=== PATIENT | male | born 1970 | race Caucasian/White ===

== ENCOUNTER 2023-07-30 00:47 | Inpatient (IN) ==
--- OUTSIDE RECORDS SUMMARY | 2023-07-30 00:55 | External Medical Summary | Summary of Care ---
Author Name Unknown Organization [facility] Address [address] [place] [address] Phone [phone] Care Team Providers Care Telegraph Installer Name Role Phone Ludin Lim MD Primary Care Provider + Reason for Visit * Reason Comments eRx-Medication Refill Encounter Details Date Type Department Care Team ([facility] st Contact Info) Description 06/16/2023 Telephone General Internal Medicine [facility] [address] [place] [address] Ludin Lim MD 200 [place] [address] eRx-Medication Refill Allergies Active Allergy Reactions Criticality Noted Date Comments Melissa Awad 10/28/2018 Other reaction(s): Sneezing documented as of this encounter (statuses as of 06/18/2023) Medications Medication Sig Dispensed Refills Start Date End Date Status ASPIRIN 81 MG PO TABS 1 tablet daily 0 Active Betamethasone Dipropionate Aug 0.05 % External Ointment (Diprolene AF)Indications:Derm atitis Apply to arms/legs rash nightly as needed 30 g 1 07/18/2021 Active Additional Information Patient not taking.Reported on 06/08/2022 BD Pen Needle Kathy U/F 32G X 4 MM (Insulin Pen Needle)Indications: Type 2 diabetes mellitus with hemoglobin A1c goal of less than 7.0% ([facility]) use once daily with solostar pen 100 Each 5 06/07/2022 Active Lisinopril 20 MG Oral Tablet (Prinivil)Indicatio ns:HTN, goal below 140/90 TAKE 1 TABLET BY MOUTH EVERY MORNING 90 Tablet 0 05/01/2023 Active Gabapentin 300 MG Oral Capsule (Neurontin)Indicati ons:Neuralgia and neuritis TAKE ONE CAPSULE BY MOUTH EVERY MORNING, ONE CAPSULE AT NOON, AND ONE CAPSULE BEFORE BEDTIME 90 Capsule 0 04/30/2023 Active Atorvastatin Calcium 40 MG Oral Tablet (Lipitor)Indication s:Hyperlipidemia TAKE 1 TABLET BY MOUTH EVERY MORNING 90 Tablet 0 05/21/2023 Active Levemir FlexPen 100 UNIT/ML Subcutaneous Solution Pen-injector (Insulin Detemir) inject 30 units under the skin in the morning 15 mL 0 05/21/2023 Active metFORMIN HCl ER 500 MG Oral Tablet Extended Release 24 Hour (Glucophage XR) TAKE TWO TABLETS BY MOUTH IN THE MORNING AND AT BEDTIME 360 Tablet 0 06/06/2023 Active Empagliflozin 25 MG Oral Tablet (Jardiance) Take 1 Tablet by mouth in the morning. In the morning.. 90 Tablet 0 06/06/2023 Active Metoprolol Tartrate 50 MG Oral Tablet (Lopressor)Indicati ons:HTN, goal below 140/90 Take 1 Tablet by mouth in the morning and 1 Tablet before bedtime. 180 Tablet 1 06/04/2023 Active documented as of this encounter (statuses as of 06/18/2023) Active Problems Problem Noted Date Diagnosed Date Neuralgia and neuritis 11/05/2021 Obesity, Class II, BMI 35-39.9, isolated (see ac tual BMI) 12/20/2018 Mixed hyperlipidemia 05/01/2018 H/O tobacco use, presenting hazards to health HTN, goal below 140/90 01/10/2016 Overview: Per HTN Protocol Irritable bowel syndrome 06/22/2008 Reflux esophagitis 05/15/2008 Type 2 diabetes mellitus wit h hemoglobin A1c goal of less than 7.0% Overview: ICD-10 update of inactive term documented as of this encounter (statuses as of 06/18/2023) Resolved Problems Problem Noted Date Diagnosed Date Resolved Date Body mass index (BMI) of 40. 0 to 44.9 in adult 04/30/2017 12/20/2018 Overview: Per Obesity protocol #1 Obesity 11/21/2013 05/03/2017 Overview: Per Obesity protocol #1 HTN, goal below 140/80 10/08/201201/12 Overview: Per HTN Protocol Obesity, morbid (more than 1 00 lbs over ideal weight or BMI > 40) 10/26/2009 11/21/2013 Overview: Per Obesity Taxonomy ICD-10 update of inactive term Chest pain 06/22/2008 11/21/2013 Tobacco use disorder 04/22/2008 016 Abdominal pain, epigastric 04/08/2008 0 11/21/2013 Myalgia and myositis 10/05/2006 014 Other chest pain 08/10/2006 06/13/2013 Morbid obesity, BMI not known 08/10/2006 10/26/2009 Overview: Per Obesity Taxonomy ADVANCE DIRECTIVE INFORMATION 01/24/2005 05/01/2018 Overview: given information documented as of this encounter (statuses as of 06/18/2023) Immunizations Name Administration Dates Next Due COVID-19 mRNA, LNP-s, No Pre serve, 2-Dose Series (Moderna) 10/14/2020,09/04/2020 COVID-19, mRNA, LNP-s, PF, B ooster, 100mcg/0.5mg (Moderna) 11/07/2021,07/04/2021 Covid-19, Mrna, Lnp-s, Pf, B ivalent, 30 Mcg, IM, 12 yrs and above (Pfizer) 04/25/2022 Hepatitis B, 20+ yrs 01/18/2015,12/24/2013,11/21 Pneumococcal Conjugate Vacci ne, 20-valent ([id number]) 06/08/2022 Pneumococcal Polysaccharide PPV23 (Pneumovax) 10/08/2012,09/21/2008 SEASONAL INFLUENZA, PF, 6 M & Above, IM , (FLULAVAL or FLUZONE) 04/15/2022,04/18/2021 Seasonal Influenza, Quadriva lent, No Preserve, IM 05/22/2020 TD, Preservative Free 05/01/2018 TDAP (age 11 and older)(Adacel) 04/22/2008 Zoster Vaccine Recombinant (Shingrix) 04/18/2021 ,02/14/2021 04/17/2021 documented as of this encounter Social History Tobacco Use Types Packs/Day Years Used Date Smoking Tobacco: Former Cigarettes 1 15 Smokeless Tobacco: Never Quit: 10/28/2013 Alcohol Use Standard Drinks/Week Comments Yes 0 (1 standard drink = 0.6 oz pur e alcohol) occasionally PHQ-2 Answer Date Recorded PHQ Adult Total Score 10 02/27/2023 Hunger Vital Sign Answer Date Recorded Within the past 12 months, y ou worried that your food would run out before you got the money to buy more. Never true 02/15/20 21 Within the past 12 months, t he food you bought just didn't last and you didn't have money to get more. Never true 02/14/2021 Sex and Gender Information Value Date Recorded Sex Assigned at Male 12/20/2018 2:13 PM EDT Gender Identity Male 12/20/2018 2:13 PM EDT Sexual Orientation Bisexual 12/20/2018 2: 13 PM EDT Job Start Date Occupation Industry Not on file Not on file Not on file documented as of this encounter Miscellaneous Notes * Telephone Encounter - Basilio Hernandez CMA - 06/18/2023 11:07 AM EST Phone is disconnected unable to leave message to return call * Telephone Encounter - Ludin Lim MD - 06/18/2023 9:22 AM EST Refused Prescriptions: Disp Refills Insulin Glargine-yfgn 100 UNIT/ML Subcutan* Sig: Inject under the skin. Refused By: LUDIN LIM Reason for Refusal: Refill Not Appropriate * Telephone Encounter - Ludin Lim MD - 06/18/2023 9:19 AM EST Please call, needs to get labs in next 2 weeks otherwise, I can't refill meds given we need to knowwhat A1c, lipids, gfr, lft numbers are. Also, I am told supply is short on this, does pharmacy havein stock? If not, would switch to lantus 30 units * Telephone Encounter - Lynnette Tran [facility] - 06/18/2023 8:45 AM ESTPending Prescriptions: Disp Refills Levemir FlexPen 100 UNIT/ML Subcutaneous S*15 mL 0 Sig: inject 30 units under the skin in the morning * Telephone Encounter - Lynnette Tran [facility] - 06/18/2023 8:43 AM EST Unable to authorize medication refills at this time. Part of the criteria used for refill authorization was not satisfied. Patient needs current well office visit and labs. Multiple attempts made to notify pt. Please approve if appropriate. Pending Prescriptions: Disp Refills Levemir FlexPen 100 UNIT/ML Subcutaneous *15 mL 0 Sig: inject 30 units under the skin in the morning Last Visit: 02/27/2023 (in office), Visit date not found (telemedicine) Next Visit: 09/05/2023 If no future appointments scheduled, and last appointment is greater than a year ago, please schedule patient for a follow-up appointment Last date the medication was ordered: 05/21/23 Is this request for a controlled substance?No Urine Drug Screen:No results found for this or any previous visit. Patient Phone Numbers Labs: Lab Results Component Value Date/Time CREAT 0.72 02/11/2021 12:00 AM CREAT 0.7 12/13/2016 07:33 AM POTASSIUM 4.6 (A) 02/11/2021 12:00 AM POTASSIUM 4.5 12/13/2016 07:33 AM TSH 2.33 12/13/2016 07:33 AM LDLCALC 44 12/24/2018 12:00 AM LDLCALC 46 12/13/2016 07:33 AM LDLDIRECT 35 02/11/2021 12:00 AM LDLDIRECT NOT APPLICABLE 12/13/2016 07:33 AM LDLDIRECT 137 (H) 11/21/2013 04:58 PM ALT 32 02/11/2021 12:00 AM ALT 39 12/13/2016 07:33 AM HGBA1C 8.6 (H) 02/11/2021 12:00 AM HGBA1C 9.1 (H) 12/13/2016 07:33 AM documented in this encounter Plan of Treatment Upcoming Encounters Date Type Department Care Team (Late st Contact Info) Description 09/05/2023 3:00 PM EST [facility] [address] [place] [address] Ludin Lim MD 200 [facility] [place] [address] Scheduled Procedures Name Priority Associated Diagnoses Date/Ti me COLONOSCOPY FLEXIBLE PROXIMAL DIAGNOSTIC Recall History of colon polyps Health Maintenance Due Date Last Done Comments B-12 1988 Hepatitis C Screening 1988 HbA1c 08/14/2021 02/11/2021, 11/28, 05/23/2018, Additional history exists Albumin/Creatinine Ratio 02/11/2022 021, 05/23/2018, 12/13/2016, Additional history exists GFR 02/11/2022 02/11/2021, 12/29, 12/24/2018, Additional history exists Depression, Most Recent Score >= 10 (will fire each visit until score < 10) 02/28/2023 02/27/2023 COVID-19 Vaccine ( season) 2023 04/25/2022, 11/07/2021, 07/04/2021, Additional history exists Influenza Vaccine (FLU shot) (#1) 2023 04/15/2022, 04/18/2021, 05/22/2020 Diabetic Foot Exam 06/08/2023 06/08/2022, 0 02/14/2021, 02/24/2020, Additional history exists Diabetic Eye Exam 09/21/2023 09/21/2022, , 11/21/2013, Additional history exists COLONOSCOPY-EVERY 5 YRS AGES 18-100 01/16/2024 01/15/2019, 01/15/2019 Lipid Panel 02/11/2026 02/11/2021, 11/28, 05/23/2018, Additional history exists DTaP,Tdap,and Td Vaccines (3 - Td or Tdap) 05/01/2028 05/01/2018, 04/22/2008 Hepatitis B Completed 01/18/2015, 11/28, 11/21/2013 Zoster Vaccines Completed 04/18/2021, 02/14/2021 Pneumococcal Vaccine: Pediatrics (0 to 5 Years) and At-Risk Patients (6 to 64 Years) Completed 06/08/2022, 10/08/2012, 09/21/2008 GARDASIL-HPV IMMUNIZATION SERIES Aged Out No longer eligible based on patient's age to complete this topic MENINGOCOCCAL (MENACTRA/MENVEO) Aged Out No longer eligible based on patient's age to complete this topic documented as of this encounter Medical Devices Not on filedocumented as of this encounter Visit Diagnoses Diagnosis Type 2 diabetes mellitus with hemoglobin A1c goal of less than 7.0% (HCC)- Primary documented in this encounter Care Teams Telegraph Installer Relationship Specialty Start Date End Date Ludin Lim MD [address] [place] [address] [place] [address] PCP - General Internal Medicine 05/01/18 documented as of this encounter
--- OUTSIDE RECORDS SUMMARY | 2023-07-30 00:55 | External Medical Summary | Summary of Care ---
Author Name Unknown Organization [facility] Address [address] [place] [address] Phone [phone] Care Team Providers Care Aircraft Engine Mechanic Supervisor Name Role Phone Ludin Lim MD Primary Care Provider + Reason for Visit * Reason Onset Date Comments Medication Refill 06/25/2023 Encounter Details Date Type Department Care Team ([facility] st Contact Info) Description 06/25/2023 Telephone General Internal Medicine [facility] [address] [place] [address] Ludin Lim MD 200 [place] [address] Medication Refill Allergies Active Allergy Reactions Criticality Noted Date Comments Cat Dander 10/28/2018 Other reaction(s): Sneezing documented as of this encounter (statuses as of 07/04/2023) Medications Medication Sig Dispensed Refills Start Date End Date Status ASPIRIN 81 MG PO TABS 1 tablet daily 0 Active Betamethasone Dipropionate Aug 0.05 % External Ointment (Diprolene AF)Indications:Paco matitis Apply to arms/legs rash nightly as needed 30 g 1 07/18/2021 Active Additional Information Patient not taking.Reported on 06/08/2022 Lisinopril 20 MG Oral Tablet (Prinivil)Indicati ons:HTN, goal below 140/90 TAKE 1 TABLET BY MOUTH EVERY MORNING 90 Tablet 0 05/01/2023 Active Gabapentin 300 MG Oral Capsule (Neurontin)Indicat ions:Neuralgia and neuritis TAKE ONE CAPSULE BY MOUTH EVERY MORNING, ONE CAPSULE AT NOON, AND ONE CAPSULE BEFORE BEDTIME 90 Capsule 0 04/30/2023 Active Atorvastatin Calcium 40 MG Oral Tablet (Lipitor)Indicatio ns:Hyperlipidemia TAKE 1 TABLET BY MOUTH EVERY MORNING 90 Tablet 0 05/21/2023 Active metFORMIN HCl ER 500 MG Oral Tablet Extended Release 24 Hour (Glucophage XR) TAKE TWO TABLETS BY MOUTH IN THE MORNING AND AT BEDTIME 360 Tablet 0 06/06/2023 Active Empagliflozin 25 MG Oral Tablet (Jardiance) Take 1 Tablet by mouth in the morning. In the morning.. 90 Tablet 0 06/06/2023 Active Metoprolol Tartrate 50 MG Oral Tablet (Lopressor)Indicat ions:HTN, goal below 140/90 Take 1 Tablet by mouth in the morning and 1 Tablet before bedtime. 180 Tablet 1 06/04/2023 Active BD Pen Needle Kathy U/F 32G X 4 MM (Insulin Pen Needle)Indications :Type 2 diabetes mellitus with hemoglobin A1c goal of less than 7.0% (HCC) USE ONCE DAILY WITH SOLOSTAR PEN 100 Each 3 06/20/2023 Active Insulin Glargine Solostar 100 UNIT/ML Subcutaneous Solution Pen-injector (Lantus SoloStar)Indicatio ns:Type 2 diabetes mellitus with hemoglobin A1c goal of less than 7.0% (HCC) Inject 30 units under the skin in the morning 15 mL 1 06/27/2023 Active Levemir FlexPen 100 UNIT/ML Subcutaneous Solution Pen-injector (Insulin Detemir) inject 30 units under the skin in the morning 15 mL 0 05/21/2023 3 Discontinue d(Formulary /Cost) documented as of this encounter (statuses as of 07/04/2023) Active Problems Problem Noted Date Diagnosed Date [...] as of this encounter (statuses as of 07/04/2023) Resolved Problems Problem Noted Date Diagnosed Date [...] as of this encounter (statuses as of 07/04/2023) Immunizations Name Administration Dates Next Due COVID-19 mRNA, LNP-s, No Pre serve, 2-Dose Series (Moderna) 10/14/2020,09/04/2020 COVID-19, mRNA, LNP-s, PF, B ooster, 100mcg/0.5mg (Moderna) 11/07/2021,07/04/2021 Covid-19, Mrna, Lnp-s, Pf, B ivalent, 30 Mcg, IM, 12 yrs and above ([facility]) 04/25/2022 Hepatitis B, 20+ yrs 01/18/2015,12/24/2013,11/21 Pneumococcal Conjugate Vacci ne, 20-valent ([id number]) 06/08/2022 Pneumococcal Polysaccharide PPV23 (Pneumovax) 10/08/2012,09/21/2008 SEASONAL [...] encounter Miscellaneous Notes * Telephone Encounter - Anita Raymond LPN - 07/04/2023 4:41 PM EST Left message for patient to call back regarding message below. Patient is due for labs also. * Telephone Encounter - Basilio Hernandez CMA - 06/27/2023 12:21 PM EST Attempted to call patient VM is not set up * Telephone Encounter - Ludin Lim MD - 06/27/2023 11:14 AM EST Signed Prescriptions: Disp Refills Insulin Glargine Solostar 100 UNIT/ML Subc*15 mL 1 Sig: Inject 30 units under the skin in the morning Authorizing Provider: LUDIN LIM * Telephone Encounter - Ludin Lim MD - 06/27/2023 11:11 AM EST Levemir being discontinued from message I got, would like to switch to lantus, same dosing. I sent it instead, call if sugars rise * Telephone Encounter - Sophia Charles silk folder - 06/27/2023 11:04 AM EST Pending Prescriptions: Disp Refills Levemir FlexPen 100 UNIT/ML Subcutaneous S*15 mL 0 Sig: Inject 30 Units under the skin in the morning. * Telephone Encounter - Sophia Charles silk folder - 06/27/2023 11:03 AM EST Received message from [facility] regarding patient needing labs. Placed call to patient to advise. Unable to reach pt, as there was no answer and no VM available to leave message. Sent the patient a MyG message to advise. Thank you, Sophia Charles CPhT Auctioneer [employer] [facility] ([facility]) 06/27/2023,11:03 AM * Telephone Encounter - Major Guaman RPh - 06/26/2023 10:20 AM ESTPending Prescriptions: Disp Refills Levemir FlexPen 100 UNIT/ML Subcutaneous S*15 mL 0 Sig: Inject 30 Units under the skin in the morning. * Telephone Encounter - Major Guaman RPh - 06/26/2023 10:17 AM EST Unable to authorize medication refills for pended medication(s) at this time. Per refill protocol patient should have Routine Labs on file within past year. Reviewed AMP report, Care Gaps/Health Maintenance, medications list, and for any routine labs typically ordered for this patient. Lab orders placed previously by PCP. Please contact patient to advise of labs ordered for blood draw AND URINE specimen (patient will have to be able to void to provide sample). Recommend patient to fast if able for labs. Patient may still have water and regular medications. Advise to obtain labs before requesting the next refill. After contacting patient, please forward request to Ludin Lim MD. Patient does have upcoming OV scheduled for 09/05/23 ThanksMajor Rph, Pharm D. Clinical Pharmacist [facility])/[facility] [phone] 06/26/2023,10:18 AM documented in this encounter Plan of Treatment Upcoming Encounters Date Type Department Care Team (Late st Contact Info) Description 09/05/2023 3:00 PM EST Office Visit General Internal Medicine [facility] [address] [place] [address] Ludin Lim MD 200 [facility] [place] [address] Scheduled Procedures Name Priority Associated Diagnoses Date/Ti [...] 2023 04/25/2022, 11/07/2021, 07/04/2021, Additional history exists Diabetic Foot Exam 06/08/2023 06/08/2022, 0 02/14/2021, [...] to 64 Years) Completed 06/08/2022, 10/08/2012, 09/21/2008 Influenza Vaccine (FLU shot) Completed , 04/15/2022, 04/18/2021, Additional history exists GARDASIL-HPV IMMUNIZATION SERIES Aged Out No longer eligible based on patient's age to complete this topic MENINGOCOCCAL (MENACTRA/MENVEO) Aged Out No longer eligible based on patient's age to complete this topic documented as of this encounter Medical Devices Not on filedocumented as of this encounter Visit Diagnoses Diagnosis Type 2 diabetes mellitus with hemoglobin A1c goal of less than 7.0% ([facility])- Primary documented in this encounter Care Teams Aircraft Engine Mechanic Supervisor Relationship Specialty Start Date End Date Ludin Lim MD 200 [facility] [place] [address] PCP - General Internal Medicine 05/01/18 documented as of this encounter
--- OUTSIDE RECORDS SUMMARY | 2023-07-30 00:55 | External Medical Summary | Summary of Care ---
Author Name Unknown Organization [facility] Address [address] [place] [address] Phone [phone] Care Team Providers Care External Relations Director Name Role Phone Ludin Lim MD Primary Care Provider + Reason for Visit * Reason Comments eRx-Medication Refill Encounter Details Date Type Department Care Team ([facility] st Contact Info) Description 06/19/2023 Refill General Internal Medicine [facility] [address] [place] [address] Ludin Lim MD 200 [place] [address] Type 2 diabetes mellitus with hemoglobin A1c goal of less than 7.0% ([facility]) Allergies Active Allergy Reactions Criticality Noted Date Comments Cat Dander 10/28/2018 Other reaction(s): Sneezing documented as of this encounter (statuses as of 06/20/2023) Medications Medication Sig Dispensed Refills Start Date End Date Status ASPIRIN 81 MG PO TABS 1 tablet daily 0 Active Betamethasone Dipropionate Aug 0.05 % External Ointment (Diprolene AF)Indications:De rmatitis Apply to arms/legs rash nightly as needed 30 g 1 07/18/2021 Active Additional Information Patient not taking.Reported on 06/08/2022 Lisinopril 20 MG Oral Tablet (Prinivil)Indicat ions:HTN, goal below 140/90 TAKE 1 TABLET BY MOUTH EVERY MORNING 90 Tablet 0 05/01/2023 Active Gabapentin 300 MG Oral Capsule (Neurontin)Indica tions:Neuralgia and neuritis TAKE ONE CAPSULE BY MOUTH EVERY MORNING, ONE CAPSULE AT NOON, AND ONE CAPSULE BEFORE BEDTIME 90 Capsule 0 04/30/2023 Active Atorvastatin Calcium 40 MG Oral Tablet (Lipitor)Indicati ons:Hyperlipidemi a TAKE 1 TABLET BY MOUTH EVERY MORNING [...] Active Metoprolol Tartrate 50 MG Oral Tablet (Lopressor)Indica tions:HTN, goal below 140/90 Take 1 Tablet by mouth in the morning and 1 Tablet before bedtime. 180 Tablet 1 06/04/2023 Active BD Pen Needle Kathy U/F 32G X 4 MM (Insulin Pen Needle)Indication s:Type 2 diabetes mellitus with hemoglobin A1c goal of less than 7.0% (HCC) USE ONCE DAILY WITH SOLOSTAR PEN 100 Each 3 06/20/2023 Active BD Pen Needle Kathy U/F 32G X 4 MM (Insulin Pen Needle)Indication s:Type 2 diabetes mellitus with hemoglobin A1c goal of less than 7.0% (HCC) use once daily with solostar pen 100 Each 5 06/07/2022 06/20/20 23 Discontinued documented as of this encounter (statuses as of 06/20/2023) Active Problems Problem Noted Date Diagnosed Date [...] as of this encounter (statuses as of 06/20/2023) Resolved Problems Problem Noted Date Diagnosed Date [...] as of this encounter (statuses as of 06/20/2023) Immunizations Name Administration Dates Next Due COVID-19 mRNA, LNP-s, No Pre serve, 2-Dose Series (Moderna) 10/14/2020,09/04/2020 COVID-19, mRNA, LNP-s, PF, B ooster, 100mcg/0.5mg (Moderna) 11/07/2021,07/04/2021 Covid-19, Mrna, Lnp-s, Pf, B ivalent, 30 Mcg, IM, 12 yrs and above ([employer]) 04/25/2022 Hepatitis B, 20+ yrs 01/18/2015,12/24/2013,11/21 Pneumococcal Conjugate Vacci ne, 20-valent ([id number]) 06/08/2022 Pneumococcal Polysaccharide PPV23 (Pneumovax) 10/08/2012,09/21/2008 SEASONAL [...] encounter Miscellaneous Notes * Telephone Encounter - Juan Daniel Palm [facility] - 06/20/2023 11:18 AM ESTSigned Prescriptions: Disp Refills BD Pen Needle Kathy U/F 32G X 4 MM (Insulin*100 Ea*3 Sig: USE ONCE DAILY WITH SOLOSTAR PENAuthorizing Provider: LUDIN LIM User: JUAN DANIEL PALM----- documented in this encounter Plan of Treatment Upcoming Encounters Date Type Department Care Team (Late st Contact Info) Description 09/05/2023 3:00 PM EST Office Visit General Internal Medicine [facility] [address] [place] [address] Ludin Lim MD [address] [place] [address] Scheduled Procedures Name Priority Associated Diagnoses Date/Ti [...] A1c goal of less than 7.0% (HCC) documented in this encounter Care Teams External Relations Director Relationship Specialty Start Date End Date Ludin Lim MD [address] [place] [address] PCP - General Internal Medicine 05/01/18 documented as of this encounter
--- OUTSIDE RECORDS SUMMARY | 2023-07-30 00:55 | External Medical Summary | Summary of Care ---
Author Name Unknown Organization [facility] Address [address] [address] Phone [phone] Care Team Providers Care Business Computers Teacher Name Role Phone Ludin Lim MD Primary Care Provider + Reason for Visit * Reason Onset Date Comments Medication Refill 06/04/2023 Encounter Details Date Type Department Care Team ([facility] st Contact Info) Description 06/04/2023 Refill General Internal Medicine [facility] [address] [address] Ludin Lim MD [address] [place] [address] Allergies Active Allergy Reactions Criticality Noted Date Comments Cat Dander 10/28/2018 Other reaction(s): Sneezing documented as of this encounter (statuses as of 06/06/2023) Medications Medication Sig Dispensed Refills Start Date [...] goal of less than 7.0% ([facility]) use once daily with solostar pen 100 Each 5 06/07/2022 Active Lisinopril 20 MG Oral Tablet (Prinivil)Indicati ons:HTN, [...] before bedtime. 180 Tablet 1 06/04/2023 Active metFORMIN HCl ER 500 MG Oral Tablet Extended Release 24 Hour (Glucophage XR) TAKE TWO TABLETS BY MOUTH IN THE MORNING AND AT BEDTIME 360 Tablet 0 03/01/2023 3 Discontinue d(Refill) Jardiance 25 MG Oral Tablet (Empagliflozin) TAKE 1 TABLET BY MOUTH EVERY MORNING 90 Tablet 0 03/01/2023 3 Discontinue d(Refill) documented as of this encounter (statuses as of 06/06/2023) Active Problems Problem Noted Date Diagnosed Date [...] as of this encounter (statuses as of 06/06/2023) Resolved Problems Problem Noted Date Diagnosed Date [...] as of this encounter (statuses as of 06/06/2023) Immunizations Name Administration Dates Next Due COVID-19 mRNA, LNP-s, No Pre serve, 2-Dose Series (Moderna) 10/14/2020,09/04/2020 COVID-19, mRNA, LNP-s, PF, B ooster, 100mcg/0.5mg (Moderna) 11/07/2021,07/04/2021 Covid-19, Mrna, Lnp-s, Pf, B ivalent, 30 Mcg, IM, 12 yrs and above (Pfizer) 04/25/2022 Hepatitis B, 20+ yrs 01/18/2015,12/24/2013,11/21 Pneumococcal Conjugate Vacci ne, 20-valent ([id number]) 06/08/2022 Pneumococcal Polysaccharide PPV23 (Pneumovax) 10/08/2012,09/21/2008 SEASONAL [...] encounter Miscellaneous Notes * Telephone Encounter - Ludin Lim MD - 06/06/2023 11:17 AM EST Signed Prescriptions: Disp Refills metFORMIN HCl ER 500 MG Oral Tablet Extend*360 Ta*0 Sig: TAKE TWO TABLETS BY MOUTH IN THE MORNING AND AT BEDTIMEAuthorizing Provider: LUDIN LIM Empagliflozin 25 MG Oral Tablet (Jardiance)90 Tab*0 Sig: Take 1 Tablet by mouth in the morning. In the morning..Authorizing Provider: LUDIN LIM * Telephone Encounter - Felipa Mcgrath CPhT - 06/06/2023 9:52 AM ESTPending Prescriptions: Disp Refills metFORMIN HCl ER 500 MG Oral Tablet Extend*360 Ta*0 Empagliflozin 25 MG Oral Tablet (Jardiance)90 Tab*0 Sig: Take 1 Tablet by mouth in the morning. In the morning.. * Telephone Encounter - Felipa Mcgrath CPhT - 06/06/2023 9:51 AM EST Received message from [facility] regarding patient needing labs. Placed call to patient to advise. Unable to reach pt, as there was no answer and no VM available to leave message. Sent the patient a Moe Delo message to advise. Thank you, Felipa Mcgrath CPhT [employer] Superintendent II Centralized Clinical Pharmacy Services ( Formerly Telepharmacy) 06/06/2023,9:51 AM * Telephone Encounter - Fabio Worthington [facility] - 06/05/2023 1:44 PM EST Pending Prescriptions: Disp Refills metFORMIN HCl ER 500 MG Oral Tablet Extend*360 Ta*0 Empagliflozin 25 MG Oral Tablet (Jardiance)90 Tab*0 Sig: Take 1 Tablet by mouth in the morning. In the morning.. * Telephone Encounter - Fabio Worthington [facility] - 06/05/2023 1:43 PM EST Unable to authorize medication refills for pended medication(s) at this time. Per refill protocol patient should have routine labs on file within past year. Reviewed AMP report, Care Gaps/Health Maintenance, medications list, and for any routine labs typically ordered for this patient. Lab orders placed. Please contact patient to advise of labs ordered for blood draw AND URINE specimen (patient will have to be able to void to provide sample). Recommend patient to fast if able for labs. Patient may still have water and regular medications. Advise to obtain labs before requesting the next refill. After contacting patient, please forward request to Ludin Lim MD. Thanks, Fabio Worthington, PharmD Clinical Pharmacist Centralized Clinical Pharmacy Services(formerly telepharmacy) [phone] 06/05/2023, 1:43 PM documented in this encounter Plan of Treatment Upcoming Encounters Date Type Department Care Team (Late st Contact Info) Description 09/05/2023 3:00 PM EST Office Visit General Internal Medicine [facility] [address] [place] [address] Ludin Lim MD [address] [place] [address] Scheduled Procedures Name Priority Associated Diagnoses Date/Ti me COLONOSCOPY FLEXIBLE PROXIMAL DIAGNOSTIC Recall History of colon polyps Health Maintenance Due Date Last Done Comments B-12 1988 Hepatitis C Screening 1988 HbA1c 08/14/2021 02/11/2021, 05/02/2019, 05/23/2018, Additional history exists Albumin/Creatinine Ratio 02/11/2022 [...] Not on filedocumented as of this encounter Care Teams Business Computers Teacher Relationship Specialty Start Date End Date Ludin Lim MD [address] [place] [address] PCP - General Internal Medicine 05/01/18 documented as of this encounter
--- OUTSIDE RECORDS SUMMARY | 2023-07-30 00:55 | External Medical Summary | Summary of Care ---
Author Name Unknown Organization [facility] Address [address] [place] [address] Phone [phone] Care Team Providers Care Wire Harness Design Engineer Name Role Phone Ludin Lim MD Primary Care Provider + Reason for Visit * Reason Onset Date Comments Medication Refill 06/25/2023 Encounter Details Date Type Department Care Team ([facility] st Contact Info) Description 06/25/2023 Telephone General Internal Medicine [facility] [address] [facility] [place] [address] Ludin Lim MD [address] [place] [address] Medication Refill Allergies Active Allergy Reactions Criticality Noted Date Comments Cat Dander 10/28/2018 Other reaction(s): Sneezing documented as of this encounter (statuses as of 06/27/2023) Medications Medication Sig Dispensed Refills Start Date [...] as of this encounter (statuses as of 06/27/2023) Active Problems Problem Noted Date Diagnosed Date [...] as of this encounter (statuses as of 06/27/2023) Resolved Problems Problem Noted Date Diagnosed Date [...] as of this encounter (statuses as of 06/27/2023) Immunizations Name Administration Dates Next Due COVID-19 mRNA, LNP-s, No Pre serve, 2-Dose Series (Moderna) 10/14/2020,09/04/2020 COVID-19, mRNA, LNP-s, PF, B ooster, 100mcg/0.5mg (Moderna) 11/07/2021,07/04/2021 Covid-19, Mrna, Lnp-s, Pf, B ivalent, 30 Mcg, IM, 12 yrs and above (Scandid) 04/25/2022 Hepatitis B, 20+ yrs 01/18/2015,12/24/2013,11/21 Pneumococcal Conjugate Vacci ne, 20-valent ([id number]) 06/08/2022 Pneumococcal Polysaccharide PPV23 (Pneumovax) 10/08/2012,09/21/2008 SEASONAL [...] rise * Telephone Encounter - Sophia Charles salad chef - 06/27/2023 11:04 AM EST Pending Prescriptions: Disp Refills Levemir FlexPen 100 UNIT/ML Subcutaneous S*15 mL 0 Sig: Inject 30 Units under the skin in the morning. * Telephone Encounter - Sophia Charles, salad chef - 06/27/2023 11:03 AM EST Received message from [facility] regarding patient needing labs. Placed call to patient to advise. Unable to reach pt, as there was no answer and no VM available to leave message. Sent the patient a My message to advise. Thank you, Sophia Charles CPhT Apparel Sales Associate II Centralized Clin[facility] Pharmacy Services ([facility]) (formerly [...] does have upcoming OV scheduled for 09/05/23 Major Yuen Rph, Pharm D. Clinical Pharmacist Centralized Clinical Pharmacy Services (Formerly Telepharmacy)/[facility] [phone] 06/26/2023,10:18 AM documented in this encounter Plan of Treatment Upcoming Encounters Date Type Department Care Team (Late st Contact Info) Description 09/05/2023 3:00 PM EST Office Visit General Internal Medicine [facility] [place] [address] [place] [address] Ludin Lim MD [address] [place] [address] Scheduled Procedures Name Priority Associated Diagnoses Date/Ti [...] hemoglobin A1c goal of less than 7.0% ([facility])- Primary documented in this encounter Care Teams Wire Harness Design Engineer Relationship Specialty Start Date End Date Ludin Lim MD [address] [facility] [place] [address] PCP - General Internal Medicine 05/01/18 documented as of this encounter
--- OUTSIDE RECORDS SUMMARY | 2023-07-30 00:56 | External Medical Summary | Summary of Care ---
Author Name Unknown Organization [facility] Address [address] [place] [address] Phone [phone] Care Team Providers Care Hair Sample Matcher Name Role Phone Ludin Lim MD Primary Care Provider + Reason for Visit * Reason Comments eRx-Medication Refill Encounter Details Date Type Department Care Team ([facility] st Contact Info) Description 05/20/2023 Refill General Internal Medicine [facility] [address] [place] [address] Ludin Lim MD 200 [place] [address] Allergies Active Allergy Reactions Criticality Noted Date Comments Cat Dander 10/28/2018 Other reaction(s): Sneezing documented as of this encounter (statuses as of 05/21/2023) Medications Medication Sig Dispensed Refills Start Date [...] solostar pen 100 Each 5 06/07/2022 Active Metoprolol Tartrate 50 MG Oral Tablet (Lopressor)Indica tions:HTN, goal below 140/90 Take 1 Tablet by mouth in the morning and 1 Tablet before bedtime. 180 Tablet 1 11/28/2022 Active metFORMIN HCl ER 500 MG Oral Tablet Extended Release 24 Hour (Glucophage XR) TAKE TWO TABLETS BY MOUTH IN THE MORNING AND AT BEDTIME 360 Tablet 0 03/01/2023 Active Jardiance 25 MG Oral Tablet (Empagliflozin) TAKE 1 TABLET BY MOUTH EVERY MORNING 90 Tablet 0 03/01/2023 Active Lisinopril 20 MG Oral Tablet (Prinivil)Indicat ions:HTN, goal below 140/90 TAKE 1 TABLET BY MOUTH EVERY MORNING 90 Tablet 0 05/01/2023 Active Gabapentin 300 MG Oral Capsule (Neurontin)Indica tions:Neuralgia and neuritis TAKE ONE CAPSULE BY MOUTH EVERY MORNING, ONE CAPSULE AT NOON, AND ONE CAPSULE BEFORE BEDTIME 90 Capsule 0 04/30/2023 Active Levemir FlexPen 100 UNIT/ML Subcutaneous Solution Pen-injector (Insulin Detemir) inject 30 units under the skin in the morning 15 mL 0 05/21/2023 Active Atorvastatin Calcium 40 MG Oral Tablet (Lipitor)Indicati ons:Hyperlipidemi a TAKE 1 TABLET BY MOUTH EVERY MORNING 90 Tablet 0 02/14/2023 05/21/20 Discontinued Levemir FlexPen 100 UNIT/ML Subcutaneous Solution Pen-injector (Insulin Detemir) Inject 30 Units under the skin in the morning. 15 mL 0 04/19/2023 05/21/20 23 Discontinued documented as of this encounter (statuses as of 05/21/2023) Active Problems Problem Noted Date Diagnosed Date [...] as of this encounter (statuses as of 05/21/2023) Resolved Problems Problem Noted Date Diagnosed Date [...] as of this encounter (statuses as of 05/21/2023) Immunizations Name Administration Dates Next Due COVID-19 mRNA, LNP-s, No Pre serve, 2-Dose Series (Moderna) 10/14/2020,09/04/2020 COVID-19, mRNA, LNP-s, PF, B ooster, 100mcg/0.5mg (Moderna) 11/07/2021,07/04/2021 Covid-19, Mrna, Lnp-s, Pf, B ivalent, 30 Mcg, IM, 12 yrs and above (Pfizer) 04/25/2022 Hepatitis B, 20+ yrs 01/18/2015,12/24/2013,11/21 Pneumococcal Conjugate Vacci ne, 20-valent ([id number]) 06/08/2022 Pneumococcal Polysaccharide PPV23 (Pneumovax) 10/08/2012,09/21/2008 SEASONAL [...] Recorded PHQ Adult Total Score 10 02/27/2023 Sex and Gender Information Value Date Recorded Sex Assigned at Male 12/20/2018 2:13 PM EDT Gender Identity Male 12/20/2018 2:13 PM EDT Sexual Orientation Bisexual 12/20/2018 2: 13 PM EDT Job Start Date Occupation Industry Not on file Not on file Not on file documented as of this encounter Miscellaneous Notes * Telephone Encounter - Ludin Lim MD - 05/21/2023 10:39 AM EDTSigned Prescriptions: Disp Refills Levemir FlexPen 100 UNIT/ML Subcutaneous S*15 mL 0 Sig: inject 30 units under the skin in the morning Authorizing Provider: LUDIN LIM * Telephone Encounter - Major Guaman [facility] - 05/21/2023 9:49 AM EDTPending Prescriptions: Disp Refills Levemir FlexPen 100 UNIT/ML Subcutaneous S*15 mL 0 Sig: Inject 30 Units under the skin in the morning. * Telephone Encounter - Major Guaman RPh - 05/21/2023 9:48 AM EDT Unable to authorize medication refills for pended medication(s) at this time. Part of the protocol criteria used for refill authorization was not satisfied. Patient needs routine labs on file within the last year. Labs ordered previously and patient informed with previous refills. Last labs drawn in 2020. Sent Reminder via My [employer]. Please approve if appropriate. Thanks, Major Guaman Rph, Pharm D. Clinical Pharmacist Centralized Clinical Pharmacy Services (Formerly Telepharmacy)/[facility] [phone] 05/21/2023,9:47 AM documented in this encounter Plan of Treatment Upcoming Encounters Date Type Department Care Team (Late st Contact Info) Description 09/05/2023 3:00 PM EST Office Visit General Internal Medicine [facility] 200 [place] [address] Ludin Lim MD 200 [place] [address] Scheduled Procedures Name Priority Associated Diagnoses Date/Ti [...] < 10) 02/28/2023 02/27/2023 COVID-19 Vaccine ( - season) 2023 04/25/2022, 11/07/2021, 07/04/2021, Additional history exists Influenza Vaccine (FLU shot) (#1) 2023 04/15/2022, 04/18/2021, 05/22/2020 Diabetic Foot Exam 06/08/2023 06/08/2022, 0 02/14/2021, 02/24/2020, Additional history exists DIABETES-EYE EXAM 09/21/2023 09/21/2022, 02/24/2020 COLONOSCOPY-EVERY 5 YRS AGES 18-100 01/16/2024 01/15/2019, [...] filedocumented as of this encounter Care Teams Hair Sample Matcher Relationship Specialty Start Date End Date Ludin Lim MD [address] [place] [address] PCP - General Internal Medicine 05/01/18 documented as of this encounter"
--- OUTSIDE RECORDS SUMMARY | 2023-07-30 00:56 | External Medical Summary | Summary of Care ---
Author Name Unknown Organization [facility] Address [address] [address] Phone [phone] Care Team Providers Care Occasional Caregiver Name Role Phone Ludin Lim MD Primary Care Provider + Reason for Visit * Reason Comments eRx-Medication Refill Encounter Details Date Type Department Care Team Description 04/28/2023 Refill General Internal Medicine [facility] [address] [address] Samanta Byers MD [address] [place] [address] Neuralgia and neuritis Allergies Active Allergy Reactions Severity Noted Date Comments Cat Longder 10/28/2018 Other reaction(s): Sneezing documented as of this encounter (statuses as of 04/30/2023) Medications Medication Sig Dispensed Refills Start Date [...] before bedtime. 180 Tablet 1 11/28/2022 Active Lisinopril 20 MG Oral Tablet (Prinivil)Indicat ions:HTN, goal below 140/90 TAKE 1 TABLET BY MOUTH EVERY MORNING 90 Tablet 0 01/29/2023 Active Atorvastatin Calcium 40 MG Oral Tablet (Lipitor)Indicati ons:Hyperlipidemi a TAKE 1 TABLET BY MOUTH EVERY MORNING 90 Tablet 0 02/14/2023 Active metFORMIN HCl ER 500 MG Oral Tablet Extended Release 24 Hour (Glucophage XR) TAKE TWO TABLETS BY MOUTH IN THE MORNING AND AT BEDTIME 360 Tablet 0 03/01/2023 Active Jardiance 25 MG Oral Tablet (Empagliflozin) TAKE 1 TABLET BY MOUTH EVERY MORNING 90 Tablet 0 03/01/2023 Active Levemir FlexPen 100 UNIT/ML Subcutaneous Solution Pen-injector (Insulin Detemir) Inject 30 Units under the skin in the morning. 15 mL 0 04/19/2023 Active Gabapentin 300 MG Oral Capsule (Neurontin)Indica tions:Neuralgia and neuritis TAKE ONE CAPSULE BY MOUTH EVERY MORNING, ONE CAPSULE AT NOON, AND ONE CAPSULE BEFORE BEDTIME 90 Capsule 0 04/30/2023 Active Gabapentin 300 MG Oral Capsule (Neurontin)Indica tions:Neuralgia and neuritis TAKE ONE CAPSULE BY MOUTH IN THE MORNING, ONE AT NOON AND ONE BEFORE BEDTIME 90 Capsule 0 02/02/2023 04/30/20 23 Discontinued documented as of this encounter (statuses as of 04/30/2023) Active Problems Problem Noted Date Neuralgia and neuritis 11/05/2021 Obesity, Class II, BMI 35-39.9, isolated (see actual BMI) 12/20/2018 Mixed hyperlipidemia 05/01/2018 H/O tobacco use, presenting hazards to [facility] 05/05/2016 HTN, goal below 140/90 01/10/2016 Overview: Per HTN Protocol Irritable bowel syndrome 06/22/2008 Reflux esophagitis 05/15/2008 Type 2 diabetes mellitus with hemoglobin A1c goal of less than 7.0% Overview: ICD-10 update of inactive term documented as of this encounter (statuses as of 04/30/2023) Resolved Problems Problem Noted Date Resolved Date Body mass index (BMI) of 40.0 to 44.9 in adult 1 12/20/2018 Overview: Per Obesity protocol #1 Obesity 11/21/2013 05/03/2017 Overview: Per Obesity protocol #1 HTN, goal below 140/80 10/08/2012 6 Overview: Per HTN Protocol Obesity, morbid (more than 1 00 lbs over ideal weight or BMI > 40) 10/26/2009 11/21/2013 Overview: Per Obesity Taxonomy ICD-10 update of inactive term Chest pain 06/22/2008 11/21/2013 Tobacco use disorder 04/22/2008 05/05/2016 Abdominal pain, epigastric 04/08/200811/21 Myalgia and myositis 10/05/2006 11/21/2013 Other chest pain 08/10/2006 06/13/2013 Morbid obesity, BMI not known 08/10/2006 Overview: Per Obesity Taxonomy ADVANCE DIRECTIVE INFORMATION 01/24/2005 Overview: given information documented as of this encounter (statuses as of 04/30/2023) Immunizations Name Administration Dates Next Due COVID-19 mRNA, LNP-s, No Pre serve, 2-Dose Series (Moderna) 10/14/2020,09/04/2020 COVID-19, mRNA, LNP-s, PF, B ooster, 100mcg/0.5mg (Moderna) 11/07/2021,07/04/2021 Covid-19, Mrna, Lnp-s, Pf, B ivalent, 30 Mcg, IM, 12 yrs and above ([employer] Effective Data) 04/25/2022 Hepatitis B, 20+ yrs 01/18/2015,12/24/2013,11/21 Pneumococcal Conjugate Vacci ne, 20-valent ([id number]) 06/08/2022 Pneumococcal Polysaccharide PPV23 (Pneumovax) 10/08/2012,09/21/2008 SEASONAL [...] = 0.6 oz pur e alcohol) occasionally Food Insecurity Answer Date Recorded Within the past 12 months, y ou worried that your food would run out before you got money to buy more. Never true 02/14/2021 Within the past 12 months, t he food you bought just didn't last and you didn't have money to get more. Never true 02/14/2021 Sex Assigned at Date Recorded Male 12/20/2018 2:13 PM E DT Job Start Date Occupation Industry Not on file Not on file Not on file documented as of this encounter Miscellaneous Notes * Telephone Encounter - Ludin Lim MD - 04/30/2023 8:26 AM EDTSigned Prescriptions: Disp Refills Gabapentin 300 MG Oral Capsule (Neurontin) 90 Cap*0 Sig: TAKE ONE CAPSULE BY MOUTH EVERY MORNING, ONE CAPSULE AT NOON, AND ONE CAPSULE BEFORE BEDTIME Authorizing Provider: LUDIN LIM * Telephone Encounter - Xochitl Ramos [facility] - 04/30/2023 8:16 AM EDTPending Prescriptions: Disp Refills Gabapentin 300 MG Oral Capsule [Pharmacy M*90 Cap*0 Sig: TAKE ONE CAPSULE BY MOUTH EVERY MORNING, ONE CAPSULE AT NOON, AND ONE CAPSULE BEFORE BEDTIME * Telephone Encounter - Xochitl Ramos [facility] - 04/30/2023 8:16 AM EDT Did you pend patient's preferred pharmacy and medication before forwarding?yes Pharmacy: [id number] Pending Prescriptions: Disp Refills Gabapentin 300 MG Oral Capsule (Neurontin*90 Cap*0 Sig: TAKE ONE CAPSULE BY MOUTH EVERY MORNING, ONE CAPSULE AT NOON, AND ONE CAPSULE BEFORE BEDTIME Last Visit: 02/27/2023 (in office), Visit date not found (telemedicine) Next Visit: 09/05/2023 If no future appointments scheduled, and last appointment is greater than a year ago, please schedule patient for a follow-up appointment Last date the medication was ordered: 02/02/23 Is this request for a controlled substance?No [...] Plan of Treatment Upcoming Encounters Date Type Specialty Care Team Description 09/05/2023 Office Visit Internal Medicine Ludin Lim MD [address] [place] [address], [place] [address] Scheduled Procedures Name Priority Associated Diagnoses Date/Ti [...] visit until score < 10) 02/28/2023 02/27/2023 Influenza Vaccine (FLU shot) (#1) 2023 04/15/2022, [...] 11/28, 11/21/2013 Zoster Vaccines Completed 04/18/2021, 02/14/2021 COVID-19 Vaccine Completed 04/25/2022, 05/2022, 07/04/2021, Additional history exists Pneumococcal Vaccine: Pediatrics (0 to 5 Years) [...] as of this encounter Visit Diagnoses Diagnosis Neuralgia and neuritis Neuralgia, neuritis, and radiculitis, unspecified documented in this encounter Care Teams Occasional Caregiver Relationship Specialty Start Date End Date Ludin Lim MD [address] [place] [address] PCP - General Internal Medicine 05/01/18 documented as of this encounter
--- OUTSIDE RECORDS SUMMARY | 2023-07-30 00:56 | External Medical Summary | Summary of Care ---
Author Name Unknown Organization [facility] Address [address] [place] [address] Phone [phone] Care Team Providers Care Transitional Care Manager Name Role Phone Ludin Lim MD Primary Care Provider + Reason for Visit * Reason Onset Date Comments Medication Refill 06/04/2023 Encounter Details Date Type Department Care Team (Late st Contact Info) Description 06/04/2023 Refill [facility] [address] [facility] [address] Ludin Lim MD [address] [place], [place] [id number] HTN, goal below 140/90 Allergies Active Allergy Reactions Criticality Noted Date Comments Cat Dander 10/28/2018 Other reaction(s): Sneezing documented as of this encounter (statuses as of 06/04/2023) Medications Medication Sig Dispensed Refills Start Date [...] solostar pen 100 Each 5 06/07/2022 Active metFORMIN HCl ER 500 MG Oral Tablet Extended Release 24 Hour (Glucophage XR) TAKE TWO TABLETS BY MOUTH IN THE MORNING AND AT BEDTIME 360 Tablet 0 03/01/2023 Active Jardiance 25 MG Oral Tablet (Empagliflozin) TAKE 1 TABLET BY MOUTH EVERY MORNING 90 Tablet 0 03/01/2023 Active Lisinopril 20 MG Oral Tablet (Prinivil)Indicati [...] the morning 15 mL 0 05/21/2023 Active Metoprolol Tartrate 50 MG Oral Tablet (Lopressor)Indicat ions:HTN, goal below 140/90 Take 1 Tablet by mouth in the morning and 1 Tablet before bedtime. 180 Tablet 1 06/04/2023 Active Metoprolol Tartrate 50 MG Oral Tablet (Lopressor)Indicat ions:HTN, goal below 140/90 Take 1 Tablet by mouth in the morning and 1 Tablet before bedtime. 180 Tablet 1 11/28/2022 3 Discontinue d(Refill) documented as of this encounter (statuses as of 06/04/2023) Active Problems Problem Noted Date Diagnosed Date [...] as of this encounter (statuses as of 06/04/2023) Resolved Problems Problem Noted Date Diagnosed Date [...] as of this encounter (statuses as of 06/04/2023) Immunizations Name Administration Dates Next Due COVID-19 mRNA, LNP-s, No Pre serve, 2-Dose Series (Moderna) 10/14/2020,09/04/2020 COVID-19, mRNA, LNP-s, PF, B ooster, 100mcg/0.5mg (Moderna) 11/07/2021,07/04/2021 Covid-19, Mrna, Lnp-s, Pf, B ivalent, 30 Mcg, IM, 12 yrs and above ([place]on) 04/25/2022 Hepatitis B, 20+ yrs 01/18/2015,12/24/2013,11/21 Pneumococcal Conjugate Vacci ne, 20-valent ([id number]) 06/08/2022 Pneumococcal Polysaccharide PPV23 (Pneumovax) 10/08/2012,09/21/2008 SEASONAL [...] Telephone Encounter - Ludin Lim MD - 06/04/2023 2:58 PM ESTSigned Prescriptions: Disp Refills Metoprolol Tartrate 50 MG Oral Tablet (Lop*180 Ta*1 Sig: Take 1 Tablet by mouth in the morning and 1 Tablet before bedtime. Authorizing Provider: LUDIN LIM * Telephone Encounter - Sarika Ridley LPN - 06/04/2023 2:48 PM ESTPending Prescriptions: Disp Refills Metoprolol Tartrate 50 MG Oral Tablet (Lop*180 Ta*1 Sig: Take 1Tablet by mouth in the morning and 1 Tablet before bedtime. documented in this encounter Plan of Treatment Upcoming Encounters Date Type Department Care Team (Late st Contact Info) Description 09/05/2023 3:00 PM EST Office Visit General Internal Medicine [facility] [place] [address] [facility] [place] [address] Ludin Lim MD [address] [facility] [address] Scheduled Procedures Name Priority Associated Diagnoses Date/Ti [...] as of this encounter Visit Diagnoses Diagnosis HTN, goal below 140/90 Unspecified essential hypertension documented in this encounter Care Teams Transitional Care Manager Relationship Specialty Start Date End Date Ludin Lim MD [address] [place] [address] PCP - General Internal Medicine 05/01/18 documented as of this encounter
--- OUTSIDE RECORDS SUMMARY | 2023-07-30 00:56 | External Medical Summary | Summary of Care ---
Author Name Unknown Organization [facility] Address [address] [place] [place] [address] Phone [phone] Care Team Providers Care Electric Meter Tester [employer] Name Role Phone Ludin Lim MD Primary Care Provider + Reason for Visit * Reason Comments eRx-Medication Refill Encounter Details Date Type Department Care Team ([facility] st Contact Info) Description 05/20/2023 Refill General Internal Medicine [facility] [address] [facility] [address] Yumiko Tovar MD [address] [place] [address] Hyperlipidemia Allergies Active Allergy Reactions Criticality Noted Date Comments Melissa Alvesder 10/28/2018 Other reaction(s): Sneezing documented as of [...] EVERY MORNING 90 Tablet 0 05/21/2023 Active Atorvastatin Calcium 40 MG Oral Tablet (Lipitor)Indicati ons:Hyperlipidemi a TAKE 1 TABLET BY MOUTH EVERY MORNING 90 Tablet 0 02/14/2023 05/21/20 Discontinued Levemir FlexPen 100 UNIT/ML Subcutaneous Solution Pen-injector (Insulin Detemir) Inject 30 Units under the skin in the morning. 15 mL 0 04/19/2023 05/21/20 Discontinued documented as of this encounter (statuses [...] yrs 01/18/2015,12/24/2013,11/21 Pneumococcal Conjugate Vacci ne, 20-valent ([id number]) 06/08/2022 Pneumococcal Polysaccharide PPV23 (Pneumovax) 10/08/2012,09/21/2008 SEASONAL [...] 05/21/2023 10:39 AM EDTSigned Prescriptions: Disp Refills Atorvastatin Calcium 40 MG Oral Tablet (Li*90 Tab*0 Sig: TAKE 1 TABLET BY MOUTH EVERY MORNING Authorizing Provider: LUDIN LIM * Telephone Encounter - Major Guaman [facility] - 05/21/2023 9:47 AM EDTPending Prescriptions: Disp Refills Atorvastatin Calcium 40 MG Oral Tablet [Ph*90 Tab*0 Sig: TAKE 1 TABLET BY MOUTH EVERY MORNING * Telephone Encounter - Major Guaman RPh - 05/21/2023 9:46 AM EDT Unable to authorize medication refills for pended medication(s) at this time. Part of the protocol criteria used for refill authorization was not satisfied. Patient needs routine labs on file within the last year. Labs ordered previously and patient informed with previous refills. Last labs drawn in 2020. Please approve if appropriate. Thanks, Major Guaman Rph, Pharm D. Clinical Pharmacist Centralized Clinical Pharmacy Services (Formerly Telepharmacy)/[facility] [phone] 05/21/2023,9:47 AM documented in this encounter Plan of Treatment Upcoming Encounters Date Type Department Care Team (Late st Contact Info) Description 09/05/2023 3:00 PM EST Office Visit General Internal Medicine [facility] [address] [place] [address] Ludin Lim MD [address] [facility] [place] [address] Scheduled Procedures Name Priority Associated Diagnoses Date/Ti [...] as of this encounter Visit Diagnoses Diagnosis Hyperlipidemia Other and unspecified hyperlipidemia documented in this encounter Care Teams Electric Meter Tester [employer] Relationship Specialty Start Date End Date Ludin Lim MD [address] [place] [address] PCP - General Internal Medicine 05/01/18 documented as of this encounter
--- OUTSIDE RECORDS SUMMARY | 2023-07-30 00:56 | External Medical Summary | Summary of Care ---
Author Name Unknown Organization [facility] Address [address] [place] [address] Phone [phone] Care Team Providers Care Wallpaper Printer Name Role Phone Ludin Lim MD Primary Care Provider + Reason for Visit * Reason Onset Date Comments eRx-Medication Refill Left Message 04/28/2023 Encounter Details Date Type Department Care Team Description 04/28/2023 Refill Family Medicine [facility] [address] [facility] [phone] Ludin Lim MD [address] [place], [place] [phone] HTN, goal below 140/90 Allergies Active Allergy Reactions Severity Noted Date Comments Melissa Awad 10/28/2018 Other reaction(s): Sneezing documented as of this encounter (statuses as of 05/01/2023) Medications Medication Sig Dispensed Refills Start Date [...] hemoglobin A1c goal of less than 7.0% ([facility]) use once daily with solostar pen 100 Each 5 06/07/2022 Active Metoprolol Tartrate 50 MG Oral Tablet (Lopressor)Indica tions:HTN, goal below 140/90 Take 1 Tablet by mouth in the morning and 1 Tablet before bedtime. 180 Tablet 1 11/28/2022 Active Atorvastatin Calcium 40 MG Oral Tablet [...] the morning. 15 mL 0 04/19/2023 Active Lisinopril 20 MG Oral Tablet (Prinivil)Indicat ions:HTN, goal below 140/90 TAKE 1 TABLET BY MOUTH EVERY MORNING 90 Tablet 0 05/01/2023 Active Gabapentin 300 MG Oral Capsule (Neurontin)Indica tions:Neuralgia and neuritis TAKE ONE CAPSULE BY MOUTH EVERY MORNING, ONE CAPSULE AT NOON, AND ONE CAPSULE BEFORE BEDTIME 90 Capsule 0 04/30/2023 Active Lisinopril 20 MG Oral Tablet (Prinivil)Indicat ions:HTN, goal below 140/90 TAKE 1 TABLET BY MOUTH EVERY MORNING 90 Tablet 0 01/29/2023 05/01/20 23 Discontinued documented as of this encounter (statuses as of 05/01/2023) Active Problems Problem Noted Date Neuralgia and neuritis 11/05/2021 Obesity, Class II, BMI 35-39.9, isolated (see actual BMI) 12/20/2018 Mixed hyperlipidemia 05/01/2018 H/O tobacco use, presenting hazards to [facility] 05/05/2016 HTN, goal below 140/90 01/10/2016 Overview: Per HTN Protocol Irritable bowel syndrome 06/22/2008 Reflux esophagitis 05/15/2008 Type 2 diabetes mellitus with hemoglobin A1c goal of less than 7.0% Overview: ICD-10 update of inactive term documented as of this encounter (statuses as of 05/01/2023) Resolved Problems Problem Noted Date Resolved Date [...] as of this encounter (statuses as of 05/01/2023) Immunizations Name Administration Dates Next Due COVID-19 mRNA, LNP-s, No Pre serve, 2-Dose Series (Moderna) 10/14/2020,09/04/2020 COVID-19, mRNA, LNP-s, PF, B ooster, 100mcg/0.5mg (Moderna) 11/07/2021,07/04/2021 Covid-19, Mrna, Lnp-s, Pf, B ivalent, 30 Mcg, IM, 12 yrs and above (Pfizer) 04/25/2022 Hepatitis B, 20+ yrs 01/18/2015,12/24/2013,11/21 Pneumococcal Conjugate Vacci ne, 20-valent ([id number]) 06/08/2022 Pneumococcal Polysaccharide PPV23 (Pneumovax) 10/08/2012,09/21/2008 SEASONAL [...] Telephone Encounter - Ludin Lim MD - 05/01/2023 2:22 PM EDTSigned Prescriptions: Disp Refills Lisinopril 20 MG Oral Tablet (Prinivil) 90 Tab*0 Sig: TAKE 1 TABLET BY MOUTH EVERY MORNING Authorizing Provider: LUDIN LIM * Telephone Encounter - Felipa Mcgrath CPhT - 05/01/2023 2:20 PM EDTPending Prescriptions: Disp Refills Lisinopril 20 MG Oral Tablet [Pharmacy Med*90 Tab*0 Sig: TAKE 1 TABLET BY MOUTH EVERY MORNING * Telephone Encounter - Felipa Mcgrath CPhT - 05/01/2023 2:18 PM EDT Received message from [facility] regarding patient needing labs. Placed call to patient to advise. Left message on voicemail advising of required labs and to call back for an appointment. Thank you, Felipa Mcgrath CPhT Reporting Analyst II Centralized Clinical Pharmacy Services ( Formerly Telepharmacy) 05/01/2023,2:18 PM * Telephone Encounter - Rhiannon Vides [facility] - 04/30/2023 2:56 PM EDTPending Prescriptions: Disp Refills Lisinopril 20 MG Oral Tablet [Pharmacy Med*90 Tab*0 Sig: TAKE 1 TABLET BY MOUTH EVERY MORNING * Telephone Encounter - Rhiannon Vides [facility] - 04/30/2023 2:54 PM EDT 2nd attempt Provided 0 days supply with 0 refill(s). Per refill protocol patient should have routine [...] obtain labs before requesting the next refill. Please route to Ludin Lim MD Thank you, Rhiannon Vides, PharmD Clinical Pharmacist Centralized Clinical Pharmacy Services (CCPS) (Formerly Telepharmacy) [phone] 04/30/2023, 2:55 PM * Telephone Encounter - Rhiannon Vides RP - 04/30/2023 2:54 PM EDT Pending Prescriptions: Disp Refills Lisinopril 20 MG Oral Tablet (Prinivil) [*90 Tab*0 Sig: TAKE 1 TABLET BY MOUTH EVERY MORNING Last Visit: 11/05/2021 (in office), Visit date not found (telemedicine) Next Visit: Visit date not found If no future appointments scheduled, and last appointment is greater than a year ago, please schedule patient for a follow-up appointment Last date the medication was ordered: 01/29/23 Is this request for a controlled substance?No [...] AM HGBA1C 9.1 (H) 12/13/2016 07:33 AM * Telephone Encounter - Interface, [facility] - 04/30/2023 2:24 PM EDT Pending Prescriptions: Disp Refills Lisinopril 20 MG Oral Tablet [Pharmacy Med*90 Tab*0 Sig: TAKE 1TABLET BY MOUTH EVERY MORNING documented in this encounter Plan of Treatment Upcoming Encounters Date Type Specialty Care Team Description 09/05/2023 Office Visit Internal Medicine Ludin Lim MD [address] [place] [address] Scheduled Procedures Name Priority Associated Diagnoses Date/Ti [...] hypertension documented in this encounter Care Teams Wallpaper Printer Relationship Specialty Start Date End Date Ludin Lim MD [address] [place] [address], [place] [address] PCP - General Internal Medicine 05/01/18 documented as of this encounter
--- OUTSIDE RECORDS SUMMARY | 2023-07-30 00:57 | External Medical Summary | Summary of Care ---
Author Name Unknown Organization [facility] Address [address] [place] [facility] [place] [place] [address] Phone [phone] Care Team Providers Care Telephoto Engineer Name Role Phone Ludin Solis MD Primary Care Provider + Reason for Referral * Evaluate & Treat - Unlimited Visits (Within 30 days (routine)) - Pending Review Specialty Diagnoses / Procedures Referred By Sindhu black Referred To Contact Otolaryngology Diagnoses Bilateral hearing loss, unspecified hearing loss type Tinnitus, unspecified laterality Ludin Solis MD [facility] [address] [facility] [id number] Referral ID Status Reason Start Date Expiration Date Visits Requested Visits Authorized [id number] Pending Review Specialty Services Required 04/12/[phone] Question Answer Referral Priority Within 30 days (routine) Reason for Referral Ear Conditions Specific Condition: Hearing Loss Is this sudden hearing loss or post chemotherapy hearing loss? No Comments See audiology report Reason for Visit * Reason Onset Date Comments Advice 04/12/2023 Referral 04/12/2023 ENT Encounter Details Date Type Department Care Team Description 04/12/2023 Telephone General Internal Medicine [address] [place] [address] Ludin Solis MD [address] [facility] [place] [address] Advice; Referral (ENT) Allergies Active Allergy Reactions Severity Noted Date Comments Cat Dander 10/28/2018 Other reaction(s): Sneezing documented as of this encounter (statuses as of 04/13/2023) Medications Medication Sig Dispensed Refills Start Date [...] 11/28/2022 Active Lisinopril 20 MG Oral Tablet (Prinivil)Indicatio ns:HTN, goal below 140/90 TAKE 1 TABLET BY MOUTH EVERY MORNING 90 Tablet 0 01/29/2023 Active Gabapentin 300 MG Oral Capsule (Neurontin)Indicati ons:Neuralgia and neuritis TAKE ONE CAPSULE BY MOUTH IN THE MORNING, ONE AT NOON AND ONE BEFORE BEDTIME 90 Capsule 0 02/02/2023 Active Additional Information Patient not taking.Reported on 02/27/2023 Atorvastatin Calcium 40 MG Oral Tablet (Lipitor)Indication [...] 100 UNIT/ML Subcutaneous Solution Pen-injector (Insulin Detemir) INJECT 30 UNITS UNDER THE SKIN IN THE MORNING 15 mL 0 03/09/2023 Active documented as of this encounter (statuses as of 04/13/2023) Active Problems Problem Noted Date Neuralgia and neuritis 11/05/2021 Obesity, Class II, BMI 35-39.9, isolated (see actual BMI) 12/20/2018 Mixed hyperlipidemia 05/01/2018 H/O tobacco use, presenting hazards to [facility] 05/05/2016 HTN, goal below 140/90 01/10/2016 Overview: Per HTN Protocol Irritable bowel syndrome 06/22/2008 Reflux esophagitis 05/15/2008 Type 2 diabetes mellitus with hemoglobin A1c goal of less than 7.0% Overview: ICD-10 update of inactive term documented as of this encounter (statuses as of 04/13/2023) Resolved Problems Problem Noted Date Resolved Date [...] as of this encounter (statuses as of 04/13/2023) Immunizations Name Administration Dates Next Due COVID-19 mRNA, LNP-s, No Pre serve, 2-Dose Series (Moderna) 10/14/2020,09/04/2020 COVID-19, mRNA, LNP-s, PF, B ooster, 100mcg/0.5mg (Moderna) 11/07/2021,07/04/2021 Covid-19, Mrna, Lnp-s, Pf, B ivalent, 30 Mcg, IM, 12 yrs and above (Pfizer) 04/25/2022 Hepatitis B, 20+ yrs 01/18/2015,12/24/2013,11/21 Pneumococcal Conjugate Vacci ne, 20-valent ([id number]) 06/08/2022 Pneumococcal Polysaccharide PPV23 (Pneumovax) 10/08/2012,09/21/2008 Seasonal Influenza, PF, 6 mo ns & Above, IM , (Flulaval) 04/15/2022,04/18/2021 Seasonal Influenza, Quadriva lent, No Preserve, [...] encounter Miscellaneous Notes * Telephone Encounter - SKY Andrade - 04/13/2023 2:57 PM EDT MyG message sent, 2nd att 04/13 JAT * Telephone Encounter - SKY Andrade - 04/12/2023 2:54 PM EDT Called pt, no VM, just rang 04/12 JAT * Telephone Encounter - Ludin Solis MD - 04/12/2023 2:34 PM EDT Please call - had audiology visit for hearing loss, was unilateral and ent visit recommended, did he schedule this? If not, please do. Also, please remind to get labs! documented in this encounter Plan of Treatment Upcoming Encounters Date Type Specialty Care Team Description 09/05/2023 Office Visit Internal Medicine Ludin Solis MD [address] [place] [address] Scheduled Procedures Name Priority Associated Diagnoses Date/Ti me COLONOSCOPY FLEXIBLE PROXIMAL DIAGNOSTIC Recall History of colon polyps Scheduled Referrals Name Type Priority Associated Diagnoses Orde r Schedule OTOLARYNGOLOGY REFERRAL OP Referral Within 30 days (routine) Bilateral hearing loss, unspecified hearing loss type Tinnitus, unspecified laterality Ordered: 04/12/2023 Health Maintenance Due Date Last Done Comments [...] as of this encounter Visit Diagnoses Diagnosis Bilateral hearing loss, unspecified hearing loss type- Primary Tinnitus, unspecified laterality documented in this encounter Care Teams Telephoto Engineer Relationship Specialty Start Date End Date Ludin Solis MD [address] [place] [address], [place] [address] PCP - General Internal Medicine 05/01/18 documented as of this encounter
--- OUTSIDE RECORDS SUMMARY | 2023-07-30 00:57 | External Medical Summary | Summary of Care ---
Author Name Unknown Organization [facility] Address [address] [place] [address] Phone [phone] Care Team Providers Care Residential Sales Representative Name Role Phone Ludin Lim MD Primary Care Provider + Reason for Visit * Reason Onset Date Comments Medication Refill 04/17/2023 Encounter Details Date Type Department Care Team Description 04/17/2023 Refill General Internal Medicine [facility] [address] [place] [address] Ludin Lim MD [address] [place] [address] Allergies Active Allergy Reactions Severity Noted Date Comments Cat Dander 10/28/2018 Other reaction(s): Sneezing documented as of this encounter (statuses as of 04/19/2023) Medications Medication Sig Dispensed Refills Start Date [...] 11/28/2022 Active Lisinopril 20 MG Oral Tablet (Prinivil)Indicati ons:HTN, goal below 140/90 TAKE 1 TABLET BY MOUTH EVERY MORNING 90 Tablet 0 01/29/2023 Active Gabapentin 300 MG Oral Capsule (Neurontin)Indicat ions:Neuralgia and neuritis TAKE ONE CAPSULE BY MOUTH IN THE MORNING, ONE AT NOON AND ONE BEFORE BEDTIME 90 Capsule 0 02/02/2023 Active Additional Information Patient not taking.Reported on 02/27/2023 Atorvastatin Calcium 40 MG Oral Tablet (Lipitor)Indicatio [...] the morning. 15 mL 0 04/19/2023 Active Levemir FlexPen 100 UNIT/ML Subcutaneous Solution Pen-injector (Insulin Detemir) INJECT 30 UNITS UNDER THE SKIN IN THE MORNING 15 mL 0 03/09/2023 3 Discontinue d(Refill) documented as of this encounter (statuses as of 04/19/2023) Active Problems Problem Noted Date Neuralgia and neuritis 11/05/2021 Obesity, Class II, BMI 35-39.9, isolated (see actual BMI) 12/20/2018 Mixed hyperlipidemia 05/01/2018 H/O tobacco use, presenting hazards to [facility] 05/05/2016 HTN, goal below 140/90 01/10/2016 Overview: Per HTN Protocol Irritable bowel syndrome 06/22/2008 Reflux esophagitis 05/15/2008 Type 2 diabetes mellitus with hemoglobin A1c goal of less than 7.0% Overview: ICD-10 update of inactive term documented as of this encounter (statuses as of 04/19/2023) Resolved Problems Problem Noted Date Resolved Date [...] as of this encounter (statuses as of 04/19/2023) Immunizations Name Administration Dates Next Due COVID-19 mRNA, LNP-s, No Pre serve, 2-Dose Series (Moderna) 10/14/2020,09/04/2020 COVID-19, mRNA, LNP-s, PF, B ooster, 100mcg/0.5mg (Moderna) 11/07/2021,07/04/2021 Covid-19, Mrna, Lnp-s, Pf, B ivalent, 30 Mcg, IM, 12 yrs and above (Pfizer) 04/25/2022 Hepatitis B, 20+ yrs 01/18/2015,12/24/2013,11/21 Pneumococcal Conjugate Vacci ne, 20-valent ([id number]) 06/08/2022 Pneumococcal Polysaccharide PPV23 (Pneumovax) 10/08/2012,09/21/2008 Seasonal [...] Telephone Encounter - Ludin Lim MD - 04/19/2023 1:00 PM EDTSigned Prescriptions: Disp Refills Levemir FlexPen 100 UNIT/ML Subcutaneous S*15 mL 0 Sig: Inject 30 Units under the skin in the morning. Authorizing Provider: LUDIN LIM * Telephone Encounter - CONNOR Chavarria Tech - 04/19/2023 12:49 PM EDTPending Prescriptions: Disp Refills Levemir FlexPen 100 UNIT/ML Subcutaneous S*15 mL 0 Sig: Inject 30 Units under the skin in the morning. * Telephone Encounter - CONNOR Chavarria - 04/19/2023 12:48 PM EDT Received message from [facility] regarding patient needing labs. Placed call to patient to advise. Pt was agreeable to have labs drawn but would prefer to walk-in at their convenience. Thank you, Sophia Charles [facility] Exchange Teller II Centralized Clincal Pharmacy Services (CCPS) (formerly Telepharmacy) 04/19/2023,12:48 PM * Telephone Encounter - Nieves Otero [facility] - 04/18/2023 11:44 AM EDTPending Prescriptions: Disp Refills Levemir FlexPen 100 UNIT/ML Subcutaneous S*15 mL 0 Sig: Inject 30 Units under the skin in the morning. * Telephone Encounter - Nieves Otero [facility] - 04/18/2023 11:41 AM EDT Patient has not has labs completed since January 2021 Please contact patient to advise of labs ordered for blood draw AND URINE specimen (patient will have to be able to void to provide sample). Recommend patient to fast if able for labs. Patient may still have water and regular medications. Advise to obtain labs before refills will be approved. After contacting patient, please forward request to Ludin Lim MD. Thank You, Nieves Otero [facility] Clinical Pharmacist Centralized Clinical Pharmacy Services (CCPS) (formerly Telepharmacy) [phone] 04/18/2023, 11:43 AM documented in this encounter Plan of Treatment Upcoming Encounters Date Type Specialty Care Team Description 09/05/2023 Office Visit Internal Medicine Ludin Lim MD [address] [place] [address] Scheduled Procedures Name Priority Associated Diagnoses Date/Ti [...] filedocumented as of this encounter Care Teams Residential Sales Representative Relationship Specialty Start Date End Date Ludin Lim MD [address] [place] [address], [place] [address] PCP - General Internal Medicine 05/01/18 documented as of this encounter
--- OUTSIDE RECORDS SUMMARY | 2023-07-30 00:57 | External Medical Summary | Summary of Care ---
Author Name Unknown Organization [facility] Address [address] [place] [address] Phone [phone] Care Team Providers Care Biology Intern Name Role Phone Ludin Lim MD Primary Care Provider + Reason for Visit * Reason Comments eRx-Medication Refill Encounter Details Date Type Department Care Team Description 03/08/2023 Refill General Internal Medicine [facility] [address] [place] [address] Ludin Lim MD [address] [place] [address] Allergies Active Allergy Reactions Severity Noted Date Comments Cat Dander 10/28/2018 Other reaction(s): Sneezing documented as of this encounter (statuses as of 03/09/2023) Medications Medication Sig Dispensed Refills Start Date [...] 01/29/2023 Active Gabapentin 300 MG Oral Capsule (Neurontin)Indica tions:Neuralgia and neuritis TAKE ONE CAPSULE BY MOUTH IN THE MORNING, ONE AT NOON AND ONE BEFORE BEDTIME 90 Capsule 0 02/02/2023 Active Additional Information Patient not taking.Reported on 02/27/2023 Atorvastatin Calcium 40 MG Oral Tablet (Lipitor)Indicati [...] THE MORNING 15 mL 0 03/09/2023 Active Levemir FlexPen 100 UNIT/ML Subcutaneous Solution Pen-injector (Insulin Detemir) Inject 30 Units under the skin in the morning. 15 mL 0 01/29/2023 03/09/20 23 Discontinued documented as of this encounter (statuses as of 03/09/2023) Active Problems Problem Noted Date Neuralgia and neuritis 11/05/2021 Obesity, Class II, BMI 35-39.9, isolated (see actual BMI) 12/20/2018 Mixed hyperlipidemia 05/01/2018 H/O tobacco use, presenting hazards to [facility] 05/05/2016 HTN, goal below 140/90 01/10/2016 Overview: Per HTN Protocol Irritable bowel syndrome 06/22/2008 Reflux esophagitis 05/15/2008 Type 2 diabetes mellitus with hemoglobin A1c goal of less than 7.0% Overview: ICD-10 update of inactive term documented as of this encounter (statuses as of 03/09/2023) Resolved Problems Problem Noted Date Resolved Date [...] as of this encounter (statuses as of 03/09/2023) Immunizations Name Administration Dates Next Due COVID-19 mRNA, LNP-s, No Pre serve, 2-Dose Series (Moderna) 10/14/2020,09/04/2020 Covid-19 Mrna, Lnp-s, No Pre serve, Booster (Moderna) 11/07/2021,07/04/2021 Covid-19, Mrna, Lnp-s, Pf, B ivalent, 30 Mcg, IM, 12 yrs and above (Pfizer) 04/25/2022 Hepatitis B, 20+ yrs 01/18/2015,12/24/2013,11/21 Pneumococcal Conjugate Vacci ne, 20-valent ([id number]) 06/08/2022 Pneumococcal Polysaccharide PPV23 (Pneumovax) 10/08/2012,09/21/2008 Seasonal Influenza, Quadriva lent, No Preserve, 6 Mons & Above, IM 04/15/2022,04/18/2021 Seasonal Influenza, Quadriva lent, No Preserve, [...] Telephone Encounter - Ludin Lim MD - 03/09/2023 8:42 AM EDTSigned Prescriptions: Disp Refills Levemir FlexPen 100 UNIT/ML Subcutaneous S*15 mL 0 Sig: INJECT 30 UNITS UNDER THE SKIN IN THE MORNING Authorizing Provider: LUDIN LIM * Telephone Encounter - Marely Alonzo [facility] - 03/09/2023 8:36 AM EDTPending Prescriptions: Disp Refills Levemir FlexPen 100 UNIT/ML Subcutaneous S*15 mL 0 Sig: INJECT 30 UNITS UNDER THE SKIN IN THE MORNING * Telephone Encounter - Marely Alonzo RPh - 03/09/2023 8:35 AM EDT Pt notified multiple times of needing labs. Please advise. documented in this encounter Plan of Treatment Upcoming Encounters Date Type Specialty Care Team Description 09/05/2023 Office Visit Internal Medicine Ludin Lim MD [address] [place] [address], [place] [address] Scheduled Procedures Name Priority Associated Diagnoses Date/Ti [...] (FLU shot) (#1) 2023 04/15/2022, 04/18/2021, 05/22/2020 DIABETES-FOOT EXAM 06/08/2023 06/08/2022, 0 02/14/2021, 02/24/2020, Additional history [...] filedocumented as of this encounter Care Teams Biology Intern Relationship Specialty Start Date End Date Ludin Lim MD [address] [place] [address], [place] [address] PCP - General Internal Medicine 05/01/18 documented as of this encounter
--- OUTSIDE RECORDS SUMMARY | 2023-07-30 00:57 | External Medical Summary | Summary of Care ---
Author Name Unknown Organization [facility] Address [address] [place] [address] Phone [phone] Care Team Providers Care Air Compressor Engineer Name Role Phone Ludin Solis MD Primary Care Provider + Encounter Details Date Type Department Care Team Description 03/27/2023 Result Scan Unspecified Department <No scans attached> Allergies Active Allergy Reactions Severity Noted Date Comments Cat Dander 10/28/2018 Other reaction(s): Sneezing documented as of this encounter (statuses as of 03/28/2023) Medications Medication Sig Dispensed Refills Start Date [...] as of this encounter (statuses as of 03/28/2023) Active Problems Problem Noted Date Neuralgia and neuritis 11/05/2021 Obesity, Class II, BMI 35-39.9, isolated (see actual BMI) 12/20/2018 Mixed hyperlipidemia 05/01/2018 H/O tobacco use, presenting hazards to [facility] 05/05/2016 HTN, goal below 140/90 01/10/2016 Overview: Per HTN Protocol Irritable bowel syndrome 06/22/2008 Reflux esophagitis 05/15/2008 Type 2 diabetes mellitus with hemoglobin A1c goal of less than 7.0% Overview: ICD-10 update of inactive term documented as of this encounter (statuses as of 03/28/2023) Resolved Problems Problem Noted Date Resolved Date [...] as of this encounter (statuses as of 03/28/2023) Immunizations Name Administration Dates Next Due COVID-19 mRNA, LNP-s, No Pre serve, 2-Dose Series (Moderna) 10/14/2020,09/04/2020 Covid-19 Mrna, Lnp-s, No Pre serve, Booster (Moderna) 11/07/2021,07/04/2021 Covid-19, Mrna, Lnp-s, Pf, B ivalent, 30 Mcg, IM, 12 yrs and above (Pfizer) 04/25/2022 Hepatitis B, 20+ yrs 01/18/2015,12/24/2013,11/21 Pneumococcal Conjugate Vacci ne, 20-valent ([id number]) 06/08/2022 Pneumococcal Polysaccharide PPV23 (Pneumovax) 10/08/2012,09/21/2008 Seasonal [...] on file documented as of this encounter Plan of Treatment Upcoming Encounters Date Type Specialty Care Team Description 09/05/2023 Office Visit Internal Medicine Ludin Solis MD [address] [place] [address] Scheduled Procedures Name Priority Associated Diagnoses Date/Ti [...] Not on filedocumented as of this encounter Procedures Procedure Name Priority Date/Time Associated Diagnosis Comments PROCEDURE SCANNED RESULT 03/27/2023 documented in this encounter Results * PROCEDURE SCANNED RESULT (03/27/2023) 03/27/2023 No Physician Data Unknown SURGERY documented in this encounter Care Teams Air Compressor Engineer Relationship Specialty Start Date End Date Ludin Solis MD [address] [place] [id number] PCP - General Internal Medicine 05/01/18 documented as of this encounter
--- OUTSIDE RECORDS SUMMARY | 2023-07-30 00:57 | External Medical Summary | Summary of Care ---
Author Name Unknown Organization [facility] Address [address] [facility] [place] [address] Phone [phone] Care Team Providers Care Senior Attorney Name Role Phone Ludin Solis MD Primary Care Provider + Reason for Referral * Evaluate & Treat - Unlimited Visits (Within 30 days (routine)) - Pending Review Specialty Diagnoses / Procedures Referred By Sindhu black Referred To Contact Otolaryngology Diagnoses Bilateral hearing loss, unspecified hearing loss type Tinnitus, unspecified laterality Ludin Solis MD [facility] [address] [place] [facility] [address] Referral ID Status Reason Start Date Expiration Date Visits Requested Visits Authorized [id number] Pending Review Specialty Services Required 04/12/2023 999 [...] General Internal Medicine [place] [address] [place] [address] Ludin Solis MD [address] [facility] [place] [id number] Advice; Referral (ENT) Allergies Active Allergy Reactions Severity Noted Date Comments Cat Dander 10/28/2018 Other reaction(s): Sneezing documented as of this encounter (statuses as of 04/16/2023) Medications Medication Sig Dispensed Refills Start Date [...] as of this encounter (statuses as of 04/16/2023) Active Problems Problem Noted Date Neuralgia and neuritis 11/05/2021 Obesity, Class II, BMI 35-39.9, isolated (see actual BMI) 12/20/2018 Mixed hyperlipidemia 05/01/2018 H/O tobacco use, presenting hazards to [facility] 05/05/2016 HTN, goal below 140/90 01/10/2016 Overview: Per HTN Protocol Irritable bowel syndrome 06/22/2008 Reflux esophagitis 05/15/2008 Type 2 diabetes mellitus with hemoglobin A1c goal of less than 7.0% Overview: ICD-10 update of inactive term documented as of this encounter (statuses as of 04/16/2023) Resolved Problems Problem Noted Date Resolved Date [...] as of this encounter (statuses as of 04/16/2023) Immunizations Name Administration Dates Next Due COVID-19 mRNA, LNP-s, No Pre serve, 2-Dose Series (Moderna) 10/14/2020,09/04/2020 COVID-19, mRNA, LNP-s, PF, B ooster, 100mcg/0.5mg (Moderna) 11/07/2021,07/04/2021 Covid-19, Mrna, Lnp-s, Pf, B ivalent, 30 Mcg, IM, 12 yrs and above (Pfizer) 04/25/2022 Hepatitis B, 20+ yrs 01/18/2015,12/24/2013,11/21 Pneumococcal Conjugate Vacci ne, 20-valent ([id number]) 06/08/2022 Pneumococcal Polysaccharide PPV23 (Pneumovax) 10/08/2012,09/21/2008 Seasonal [...] * Telephone Encounter - SKY Andrade - 04/16/2023 10:03 AM EDT Letter sent, 3rd att 04/16 JAT * Telephone Encounter - SKY Andrade [...] Office Visit Internal Medicine Ludin Solis MD [address] [place] [address] Scheduled Procedures Name Priority Associated Diagnoses Date/Ti [...] laterality documented in this encounter Care Teams Senior Attorney Relationship Specialty Start Date End Date Ludin Solis MD [address] [place] [address] [place], [place] [address] PCP - General Internal Medicine 05/01/18 documented as of this encounter
--- OUTSIDE RECORDS SUMMARY | 2023-07-30 00:57 | External Medical Summary | Summary of Care ---
Author Name Unknown Organization [facility] Address [address] [place] [address] Phone [phone] Care Team Providers Care Craft Worker Name Role Phone Ludin Lim MD Primary Care Provider + Reason for Visit * Reason Comments eRx-Medication Refill Encounter Details Date Type Department Care Team Description 03/01/2023 Refill General Internal Medicine [facility] [address] [place] [address] Ludin Lim MD [address] [place] [address] Allergies Active Allergy Reactions Severity Noted Date Comments Cat Dander 10/28/2018 Other reaction(s): Sneezing documented as of this encounter (statuses as of 03/01/2023) Medications Medication Sig Dispensed Refills Start Date [...] EVERY MORNING 90 Tablet 0 01/29/2023 Active Levemir FlexPen 100 UNIT/ML Subcutaneous Solution Pen-injector (Insulin Detemir) Inject 30 Units under the skin in the morning. 15 mL 0 01/29/2023 Active Gabapentin 300 MG Oral [...] EVERY MORNING 90 Tablet 0 03/01/2023 Active Jardiance 25 MG Oral Tablet (Empagliflozin) TAKE 1 TABLET BY MOUTH EVERY MORNING 90 Tablet 0 11/28/2022 03/01/20 23 Discontinued metFORMIN HCl ER 500 MG Oral Tablet Extended Release 24 Hour (Glucophage XR) TAKE 2 TABLETS BY MOUTH IN THE MORNING AND 2 TABLETS BEFORE BEDTIME 360 Tablet 0 11/28/2022 03/01/20 23 Discontinued documented as of this encounter (statuses as of 03/01/2023) Active Problems Problem Noted Date Neuralgia and neuritis 11/05/2021 Obesity, Class II, BMI 35-39.9, isolated (see actual BMI) 12/20/2018 Mixed hyperlipidemia 05/01/2018 H/O tobacco use, presenting hazards to [facility] 05/05/2016 HTN, goal below 140/90 01/10/2016 Overview: Per HTN Protocol Irritable bowel syndrome 06/22/2008 Reflux esophagitis 05/15/2008 Type 2 diabetes mellitus with hemoglobin A1c goal of less than 7.0% Overview: ICD-10 update of inactive term documented as of this encounter (statuses as of 03/01/2023) Resolved Problems Problem Noted Date Resolved Date Body mass index (BMI) of 40.0 to 44.9 in adult 1 12/20/2018 Overview: Per Obesity protocol #1 Obesity 11/21/2013 05/03/2017 Overview: Per Obesity protocol #1 HTN, goal below 140/80 10/08/2012 Overview: Per HTN Protocol Obesity, morbid (more [...] as of this encounter (statuses as of 03/01/2023) Immunizations Name Administration Dates Next Due COVID-19 mRNA, LNP-s, No Pre serve, 2-Dose Series (Moderna) 10/14/2020,09/04/2020 Covid-19 Mrna, Lnp-s, No Pre serve, Booster (Moderna) 11/07/2021,07/04/2021 Covid-19, Mrna, Lnp-s, Pf, B ivalent, 30 Mcg, IM, 12 yrs and above ([employer]) 04/25/2022 Hepatitis B, 20+ yrs 01/18/2015,12/24/2013,11/21 Pneumococcal Conjugate Vacci ne, 20-valent ([id number]) 06/08/2022 Pneumococcal Polysaccharide PPV23 (Pneumovax) 10/08/2012,09/21/2008 Seasonal [...] Telephone Encounter - Ludin Lim MD - 03/01/2023 2:25 PM EDTSigned Prescriptions: Disp Refills metFORMIN HCl ER 500 MG Oral Tablet Extend*360 Ta*0 Sig: TAKE TWO TABLETS BY MOUTH IN THE MORNING AND AT BEDTIME Authorizing Provider: LUDIN LIM Jardiance 25 MG Oral Tablet (Empagliflozin)90 Tab*0 Sig: TAKE 1 TABLET BY MOUTH EVERY MORNING Authorizing Provider: LUDIN LIM * Telephone Encounter - Juan Daniel Palm [facility] - 03/01/2023 12:50 PM EDTPending Prescriptions: Disp Refills metFORMIN HCl ER 500 MG Oral Tablet Extend*360 Ta*0 Sig: TAKE TWO TABLETS BY MOUTH IN THE MORNING AND AT BEDTIME Jardiance 25 MG Oral Tablet [Pharmacy Med *90 Tab*0 Sig: TAKE 1 TABLET BY MOUTH EVERY MORNING * Telephone Encounter - Juan Daniel Palm [facility] - 03/01/2023 12:47 PM EDT Unable to authorize medication refills for pended medication(s) at this time. Part of the protocol criteria used for refill authorization was not satisfied. Patient needs updated labs per refill protocol. Please approve if appropriate. Thanks, Elieser Palm, PharmD Clinical Pharmacist [facility] ([facility]) (Formerly Telepharmacy) [phone] 03/01/2023 12:49 PM documented in this encounter Plan of Treatment Upcoming Encounters Date Type Specialty Care Team Description 09/05/2023 Office Visit Internal Medicine Ludin Lim MD [address] [place] [address], [place] [address] Scheduled Procedures Name Priority Associated Diagnoses Date/Ti [...] filedocumented as of this encounter Care Teams Craft Worker Relationship Specialty Start Date End Date Ludin Lim MD [place] [address] PCP - General Internal Medicine 05/01/18 documented as of this encounter
--- OUTSIDE RECORDS SUMMARY | 2023-07-30 00:57 | External Medical Summary | Summary of Care ---
Author Name Unknown Organization [facility] Address [address] [facility] [place] [address] Phone [phone] Care Team Providers Care Plant Wire Chief Name Role Phone Ludin Solis MD Primary Care Provider + Reason for Referral * Evaluate & Treat - Unlimited Visits (Within 30 days (routine)) - Pending Review Specialty Diagnoses / Procedures Referred By Sindhu black Referred To Contact Otolaryngology Diagnoses Bilateral hearing loss, unspecified hearing loss type Tinnitus, unspecified laterality Ludin Solis MD [facility] [address] [place] [facility] [id number] Referral ID Status Reason Start Date Expiration Date Visits Requested Visits Authorized [id number] Pending Review Specialty Services Required 04/12/2023 999 [...] General Internal Medicine [address] [place] [address] Ludin Solis MD [address] [place] [address] Advice; Referral (ENT) Allergies Active Allergy Reactions Severity Noted Date Comments Cat Dander 10/28/2018 Other reaction(s): Sneezing documented as of this encounter (statuses as of 04/12/2023) Medications Medication Sig Dispensed Refills Start Date [...] as of this encounter (statuses as of 04/12/2023) Active Problems Problem Noted Date Neuralgia and neuritis 11/05/2021 Obesity, Class II, BMI 35-39.9, isolated (see actual BMI) 12/20/2018 Mixed hyperlipidemia 05/01/2018 H/O tobacco use, presenting hazards to [facility] 05/05/2016 HTN, goal below 140/90 01/10/2016 Overview: Per HTN Protocol Irritable bowel syndrome 06/22/2008 Reflux esophagitis 05/15/2008 Type 2 diabetes mellitus with hemoglobin A1c goal of less than 7.0% Overview: ICD-10 update of inactive term documented as of this encounter (statuses as of 04/12/2023) Resolved Problems Problem Noted Date Resolved Date [...] as of this encounter (statuses as of 04/12/2023) Immunizations Name Administration Dates Next Due COVID-19 mRNA, LNP-s, No Pre serve, 2-Dose Series (Moderna) 10/14/2020,09/04/2020 COVID-19, mRNA, LNP-s, PF, B ooster, 100mcg/0.5mg (Moderna) 11/07/2021,07/04/2021 Covid-19, Mrna, Lnp-s, Pf, B ivalent, 30 Mcg, IM, 12 yrs and above (Pfizer) 04/25/2022 Hepatitis B, 20+ yrs 01/18/2015,12/24/2013,11/21 Pneumococcal Conjugate Vacci ne, 20-valent ([id number]) 06/08/2022 Pneumococcal Polysaccharide PPV23 (Pneumovax) 10/08/2012,09/21/2008 Seasonal [...] Office Visit Internal Medicine Ludin Solis MD [address] [place] [address] Scheduled Procedures Name Priority Associated Diagnoses Date/Ti [...] laterality documented in this encounter Care Teams Plant Wire Chief Relationship Specialty Start Date End Date Ludin Solis MD [address] [place] [address], [place] [address] PCP - General Internal Medicine 05/01/18 documented as of this encounter
--- OUTSIDE RECORDS SUMMARY | 2023-07-30 00:58 | External Medical Summary | Summary of Care ---
Author Name Unknown Organization [facility] Address [address] [facility] [address] Phone [phone] Care Team Providers Care Doorperson Or Luggage Porter Name Role Phone Luidn Lim MD Primary Care Provider + Reason for Visit * Reason Onset Date Comments Medication Refill 01/29/2023 Appointment 01/29/2023 Encounter Details Date Type Department Care Team Description 01/29/2023 Telephone General Internal Medicine [facility] [address] [facility] [address] Ludin Lim MD 200 [facility] [place] [address] Medication Refill; Appointment Allergies Active Allergy Reactions Severity Noted Date Comments Cat Dander 10/28/2018 Other reaction(s): Sneezing documented as of this encounter (statuses as of 02/01/2023) Medications Medication Sig Dispensed Refills Start Date [...] hemoglobin A1c goal of less than 7.0% ([facility]) use once daily with solostar pen 100 Each 5 06/07/2022 Active Atorvastatin Calcium 40 MG Oral Tablet (Lipitor)Indicatio ns:Hyperlipidemia TAKE 1 TABLET BY MOUTH EVERY MORNING 90 Tablet 0 11/16/2022 Active Gabapentin 300 MG Oral Capsule (Neurontin)Indicat ions:Neuralgia and neuritis Take 1 Capsule by mouth in the morning and 1 Capsule at noon and 1 Capsule before bedtime. 90 Capsule 1 11/28/2022 Active Metoprolol Tartrate 50 MG Oral Tablet (Lopressor)Indicat ions:HTN, goal below 140/90 Take 1 Tablet by mouth in the morning and 1 Tablet before bedtime. 180 Tablet 1 11/28/2022 Active Jardiance 25 MG Oral Tablet (Empagliflozin) TAKE 1 TABLET BY MOUTH EVERY MORNING 90 Tablet 0 11/28/2022 Active metFORMIN HCl ER 500 MG Oral Tablet Extended Release 24 Hour (Glucophage XR) TAKE 2 TABLETS BY MOUTH IN THE MORNING AND 2 TABLETS BEFORE BEDTIME 360 Tablet 0 11/28/2022 Active Lisinopril 20 MG Oral Tablet (Prinivil)Indicati ons:HTN, goal below 140/90 TAKE 1 TABLET BY MOUTH EVERY MORNING 90 Tablet 0 01/29/2023 Active Levemir FlexPen 100 UNIT/ML Subcutaneous Solution Pen-injector (Insulin Detemir) Inject 30 Units under the skin in the morning. 15 mL 0 01/29/2023 Active Levemir FlexPen 100 UNIT/ML Subcutaneous Solution Pen-injector (Insulin Detemir) INJECT 30 UNITS UNDER THE SKIN IN THE MORNING 15 mL 0 12/27/2022 3 Discontinue d(Refill) documented as of this encounter (statuses as of 02/01/2023) Active Problems Problem Noted Date Neuralgia and neuritis 11/05/2021 Obesity, Class II, BMI 35-39.9, isolated (see actual BMI) 12/20/2018 Mixed hyperlipidemia 05/01/2018 H/O tobacco use, presenting hazards to [facility] 05/05/2016 HTN, goal below 140/90 01/10/2016 Overview: Per HTN Protocol Irritable bowel syndrome 06/22/2008 Reflux esophagitis 05/15/2008 Type 2 diabetes mellitus with hemoglobin A1c goal of less than 7.0% Overview: ICD-10 update of inactive term documented as of this encounter (statuses as of 02/01/2023) Resolved Problems Problem Noted Date Resolved Date [...] as of this encounter (statuses as of 02/01/2023) Immunizations Name Administration Dates Next Due COVID-19 mRNA, LNP-s, No Pre serve, 2-Dose Series (Moderna) 10/14/2020,09/04/2020 Covid-19 Mrna, Lnp-s, No Pre serve, Booster (Moderna) 11/07/2021,07/04/2021 Covid-19, Mrna, Lnp-s, Pf, B ivalent, 30 Mcg, IM, 12 yrs and above ([place]) 04/25/2022 Hepatitis B, 20+ yrs 01/18/2015,12/24/2013,11/21 Pneumococcal Conjugate Vacci ne, 20-valent ([id number]) 06/08/2022 Pneumococcal Polysaccharide PPV23 (Pneumovax) 10/08/2012,09/21/2008 Seasonal [...] * Telephone Encounter - SKY Andrade - 02/01/2023 12:28 PM EDT Called pt, phone just rang, no VM. MyG message sent. 02/01 * Addendum Note - Ludin Lim MD - 01/29/2023 5:05 PM EDTAddended by: LUDIN LIM on: 01/29/2023 05:05 PM Modules accepted: Orders * Telephone Encounter - Ludin Lim MD - 01/29/2023 5:01 PM EDT Please call. He is due for a visit with me and over due for labs he was given prior. They may have so I did place labs again today, does he want to shredder picker labs or have us fax them somewhere.It is very important he do these soon! * Telephone Encounter - Ludin Lim MD - 01/29/2023 5:00 PM EDTSigned Prescriptions: Disp Refills Levemir FlexPen 100 UNIT/ML Subcutaneous S*15 mL 0 Sig: Inject 30 Units under the skin in the morning. Authorizing Provider: LUDIN LIM * Telephone Encounter - Megan Gan LPN - 01/29/2023 4:34 PM EDTPending Prescriptions: Disp Refills Levemir FlexPen 100 UNIT/ML Subcutaneous S*15 mL 0 Sig: Inject 30 Units under the skin in the morning. * Telephone Encounter - Megan Gan LPN - 01/29/2023 4:33 PM EDT Provider to address: Dr Lim Reason for Call: Medication Refill Contact: Telephone Call Contact Type: Medication Outcome: Pending Prescriptions: Disp Refills Levemir FlexPen 100 UNIT/ML Subcutaneous *15 mL 0 Sig: Inject 30 Units under the skin in the morning. Last Visit: 06/08/2022 (in office), Visit date not found (telemedicine) Next Visit: Visit date not found Last date the medication was ordered: 12/27/22 Patient Active Problem List Diagnosis Code Reflux esophagitis K21.00 Irritable bowel syndrome K58.9 Type 2 diabetes mellitus with hemoglobin A1c goal of less than 7.0% (HCC) E11.9 HTN, goal below 140/90 I10 H/O tobacco use, presenting hazards to health Z87.891 Mixed hyperlipidemia E78.2 Obesity, Class II, BMI 35-39.9, isolated (see actual BMI) E66.9 Neuralgia and neuritis M79.2 Labs: Lab Results Component Value Date/Time CREATININE - [facility] 0.7 12/13/2016 07:33 AM CREATININE, RANDOM URINE - [facility] 197 12/13/2016 07:52 AM CREATININE-OUTSIDE LAB 0.72 02/11/2021 12:00 AM Lab Results Component Value Date/Time POTASSIUM - [facility] 4.5 12/13/2016 07:33 AM POTASSIUM-OUTSIDE LAB 4.6 (A) 02/11/2021 12:00 AM Lab Results Component Value Date/Time TSH - [facility] 2.33 12/13/2016 07:33 AM Lab Results Component Value Date/Time LDL (CALCULATED)-OUTSIDE LAB 44 12/24/2018 12:00 AM LDL (CALCULATED)-[facility]IDE LAB 53 05/23/2018 12:00 AM LDL (DIRECT MEASURE)-OUTSIDE LAB 35 02/11/2021 12:00 AM LDL CHOLESTEROL (CALCULATED) - [facility] 46 12/13/2016 07:33 AM LDL CHOLESTEROL (CALCULATED) - [facility] 57 01/09/2015 10:33 AM LDL CHOLESTEROL (DIRECT MEASURE) - [facility] NOT APPLICABLE 12/13/2016 07:33 AM LDL CHOLESTEROL (DIRECT MEASURE) - [facility] NOT APPLICABLE 01/09/2015 10:33 AM LDL CHOLESTEROL (DIRECT MEASURE) - [facility] 137 (H) 11/21/2013 04:58 PM Lab Results Component Value Date/Time ALT - [facility] 39 12/13/2016 07:33 AM ALT-OUTSIDE LAB 32 02/11/2021 12:00 AM Hemoglobin AIC Results: Lab Results Component Value Date/Time HEMOGLOBIN A1C - [facility] 9.1 (H) 12/13/2016 07:33 AM HEMOGLOBIN A1C - [facility] 5.5 01/09/2015 10:33 AM HEMOGLOBIN A1C - [facility] 5.5 11/21/2013 04:58 PM Total Time including non face to face (minutes): 5 documented in this encounter Plan of Treatment Scheduled Orders Name Type Priority Associated Diagnoses Orde r Schedule PSA Lab Routine Screening for prostate cancer Ordered: 01/29/2023 HEPATITIS C ANTIBODY SCREEN WITH PROGRESSION TO HEPATITIS C RNA QUANTITATIVE Lab Routine Need for hepatitis C screening test Ordered: 01/29/2023 MAGNESIUM Lab Routine Encounter for long-term (current) use of medications Ordered: 01/29/2023 VITAMIN B12 Lab Routine Encounter for long-term (current) use of medications Ordered: 01/29/2023 ALBUMIN / CREATININE RATIO, URINE Lab Routine Type 2 diabetes mellitus with hemoglobin A1c goal of less than 7.0% (HCC) Ordered: 01/29/2023 COMPREHENSIVE METABOLIC PANEL Lab Routine Type 2 diabetes mellitus with hemoglobin A1c goal of less than 7.0% (HCC) Ordered: 01/29/2023 LIPID PANEL WITH DIRECT LDL IF TG IS HIGH Lab Routine Mixed hyperlipidemia Ordered: 01/29/2023 HEMOGLOBIN A1C Lab Routine Type 2 diabetes mellitus with hemoglobin A1c goal of less than 7.0% (HCC) Ordered: 01/29/2023 CBC WITH WBC DIFFERENTIAL Lab Routine HTN, goal below 140/90 Encounter for long-term (current) use of medications Ordered: 01/29/2023 Scheduled Procedures Name Priority Associated Diagnoses Date/Ti me COLONOSCOPY FLEXIBLE PROXIMAL DIAGNOSTIC Recall History of colon polyps Health Maintenance Due Date Last Done Comments Hepatitis C Screening 1988 HbA1c 08/14/2021 02/11/2021, 11/28, 05/23/2018, Additional history exists Albumin/Creatinine Ratio 02/11/2022 021, 05/23/2018, 12/13/2016, Additional history exists GFR 02/11/2022 02/11/2021, 12/29, 12/24/2018, Additional history exists Yearly B-12 02/11/2022 02/11/2021, 05/23/2018 Depression Screening, Annual for Pts 12 and Over 02/14/2022 02/14/2021, 01/15/2015 Influenza Vaccine (FLU shot) (#1) 2023 04/15/2022, [...] encounter Visit Diagnoses Diagnosis HTN, goal below 140/90- Primary Unspecified essential hypertension Mixed hyperlipidemia Type 2 diabetes mellitus with hemoglobin A1c goal of less than 7.0% (HCC) Prostate cancer screening information given during patient encounter Special screening for malignant neoplasm of prostate Screening for prostate cancer Special screening for malignant neoplasm of prostate Encounter for long-term (current) use of medications Encounter for long-term (current) use of other medications Need for hepatitis C screening test Special screening examination for other specified viral diseases documented in this encounter Care Teams Doorperson Or Luggage Porter Relationship Specialty Start Date End Date Ludin Lim MD [address] [place] [address] PCP - General Internal Medicine 05/01/18 documented as of this encounter
--- OUTSIDE RECORDS SUMMARY | 2023-07-30 00:58 | External Medical Summary | Summary of Care ---
Author Name Unknown Organization [facility] Address [address] [place] [address] Phone [phone] Care Team Providers Care Vault Attendant Name Role Phone Ludin Solis MD Primary Care Provider + Reason for Visit * Reason Comments eRx-Medication Refill Encounter Details Date Type Department Care Team Description 02/12/2023 Refill General Internal Medicine [facility] [address] [facility] [address] Ludin Solis MD 200 [place] [address] Hyperlipidemia Allergies Active Allergy Reactions Severity Noted Date Comments Melissa Awad 10/28/2018 Other reaction(s): Sneezing documented as of this encounter (statuses as of 02/27/2023) Medications Medication Sig Dispensed Refills Start Date [...] EVERY MORNING 90 Tablet 0 02/14/2023 Active Atorvastatin Calcium 40 MG Oral Tablet (Lipitor)Indicati ons:Hyperlipidemi a TAKE 1 TABLET BY MOUTH EVERY MORNING 90 Tablet 0 11/16/2022 02/15/20 23 Discontinued documented as of this encounter (statuses as of 02/27/2023) Active Problems Problem Noted Date Neuralgia and neuritis 11/05/2021 Obesity, Class II, BMI 35-39.9, isolated (see actual BMI) 12/20/2018 Mixed hyperlipidemia 05/01/2018 H/O tobacco use, presenting hazards to [facility] 05/05/2016 HTN, goal below 140/90 01/10/2016 Overview: Per HTN Protocol Irritable bowel syndrome 06/22/2008 Reflux esophagitis 05/15/2008 Type 2 diabetes mellitus with hemoglobin A1c goal of less than 7.0% Overview: ICD-10 update of inactive term documented as of this encounter (statuses as of 02/27/2023) Resolved Problems Problem Noted Date Resolved Date [...] as of this encounter (statuses as of 02/27/2023) Immunizations Name Administration Dates Next Due COVID-19 mRNA, LNP-s, No Pre serve, 2-Dose Series (Moderna) 10/14/2020,09/04/2020 Covid-19 Mrna, Lnp-s, No Pre serve, Booster (Moderna) 11/07/2021,07/04/2021 Covid-19, Mrna, Lnp-s, Pf, B ivalent, 30 Mcg, IM, 12 yrs and above (Pfizer) 04/25/2022 Hepatitis B, 20+ yrs 01/18/2015,12/24/2013,11/21 Pneumococcal Conjugate Vacci ne, 20-valent ([id number]) 06/08/2022 Pneumococcal Polysaccharide PPV23 (Pneumovax) 10/08/2012,09/21/2008 Seasonal [...] encounter Miscellaneous Notes * Telephone Encounter - Trisha Bruno MD - 02/14/2023 1:46 PM EDTSigned Prescriptions: Disp Refills Atorvastatin Calcium 40 MG Oral Tablet (Li*90 Tab*0 Sig: TAKE 1 TABLET BY MOUTH EVERY MORNING Authorizing Provider: TRISHA BRUNO * Telephone Encounter - Trisha Bruno MD - 02/14/2023 1:46 PM EDT Please call the patient, he will need to get labs for additional refills. * Telephone Encounter - Xochitl Ramos [facility] - 02/14/2023 12:44 PM EDTPending Prescriptions: Disp Refills Atorvastatin Calcium 40 MG Oral Tablet [Ph*90 Tab*0 Sig: TAKE 1 TABLET BY MOUTH EVERY MORNING * Telephone Encounter - Xochitl Ramos [facility] - 02/14/2023 12:44 PM EDT Unable to authorize medication refills at this time. Part of the criteria used for refill authorization was not satisfied. Patient needs current labs. Please approve if appropriate. Thanks, Xochitl Ramos Clinical Pharmacist [facility] ([facility]) (Formerly [facility]pharm[facility]) [phone] 02/14/2023, 12:44 PM * Telephone Encounter - Xochitl Ramos [facility] - 02/14/2023 12:44 PM EDT Did you pend patient's preferred pharmacy and medication before forwarding?yes Pharmacy: [facility] [id number] Pending Prescriptions: Disp Refills Atorvastatin Calcium 40 MG Oral Tablet (L*90 Tab*0 Sig: TAKE 1 TABLET BY MOUTH EVERY MORNING Last Visit: 06/08/2022 (in office), Visit date not found (telemedicine) Next Visit: 02/27/2023 If no future appointments scheduled, and last appointment is greater than a year ago, please schedule patient for a follow-up appointment Last date the medication was ordered: 11/16/22 Is this request for a controlled substance?No [...] Visit Internal Medicine Ludin Solis MD 200 [facility], [place] [address] Scheduled Procedures Name Priority Associated Diagnoses Date/Ti me COLONOSCOPY FLEXIBLE PROXIMAL DIAGNOSTIC Recall History of colon polyps Health Maintenance Due Date Last Done Comments B-12 1988 Hepatitis C Screening 1988 HbA1c 08/14/2021 02/11/2021, 11/28, 05/23/2018, Additional history exists Albumin/Creatinine Ratio 02/11/2022 021, 05/23/2018, 12/13/2016, Additional history exists GFR 02/11/2022 02/11/2021, 12/29, 12/24/2018, Additional history exists Depression Screening, Annual for Pts 12 and Over 02/14/2022 02/27/2023, 01/15/2015 Influenza Vaccine (FLU shot) (#1) 2023 [...] hyperlipidemia documented in this encounter Care Teams Vault Attendant Relationship Specialty Start Date End Date Ludin Solis MD [address] [place] [id number] PCP - General Internal Medicine 05/01/18 documented as of this encounter
--- OUTSIDE RECORDS SUMMARY | 2023-07-30 00:58 | External Medical Summary | Summary of Care ---
Author Name Unknown Organization [facility] Address [address] [place] [address] Phone [phone] Care Team Providers Care Menagerie Caretaker Name Role Phone Ludin Solis MD Primary Care Provider + Reason for Visit * Reason Comments eRx-Medication Refill Encounter Details Date Type Department Care Team Description 02/01/2023 Refill General Internal Medicine [facility] [address] [facility] [address] Ludin Solis MD 200 [place] [address] Neuralgia and neuritis Allergies Active Allergy Reactions Severity Noted Date Comments Melissa Awad 10/28/2018 Other reaction(s): Sneezing documented as of this encounter (statuses as of 02/03/2023) Medications Medication Sig Dispensed Refills Start Date [...] EVERY MORNING 90 Tablet 0 11/16/2022 Active Metoprolol Tartrate 50 MG Oral Tablet [...] BEFORE BEDTIME 90 Capsule 0 02/02/2023 Active Gabapentin 300 MG Oral Capsule (Neurontin)Indica tions:Neuralgia and neuritis Take 1 Capsule by mouth in the morning and 1 Capsule at noon and 1 Capsule before bedtime. 90 Capsule 1 11/28/2022 02/03/20 23 Discontinued documented as of this encounter (statuses as of 02/03/2023) Active Problems Problem Noted Date Neuralgia and neuritis 11/05/2021 Obesity, Class II, BMI 35-39.9, isolated (see actual BMI) 12/20/2018 Mixed hyperlipidemia 05/01/2018 H/O tobacco use, presenting hazards to [facility] 05/05/2016 HTN, goal below 140/90 01/10/2016 Overview: Per HTN Protocol Irritable bowel syndrome 06/22/2008 Reflux esophagitis 05/15/2008 Type 2 diabetes mellitus with hemoglobin A1c goal of less than 7.0% Overview: ICD-10 update of inactive term documented as of this encounter (statuses as of 02/03/2023) Resolved Problems Problem Noted Date Resolved Date [...] as of this encounter (statuses as of 02/03/2023) Immunizations Name Administration Dates Next Due COVID-19 mRNA, LNP-s, No Pre serve, 2-Dose Series (Moderna) 10/14/2020,09/04/2020 Covid-19 Mrna, Lnp-s, No Pre serve, Booster (Moderna) 11/07/2021,07/04/2021 Covid-19, Mrna, Lnp-s, Pf, B ivalent, 30 Mcg, IM, 12 yrs and above (Pfizer) 04/25/2022 Hepatitis B, 20+ yrs 01/18/2015,12/24/2013,11/21 Pneumococcal Conjugate Vacci ne, 20-valent ([id number]) 06/08/2022 Pneumococcal Polysaccharide PPV23 (Pneumovax) 10/08/2012,09/21/2008 Seasonal [...] Miscellaneous Notes * Telephone Encounter - SKY Miller - 02/03/2023 10:04 AM EDT My g sent 02/03 * Telephone Encounter - Samanta Byers MD - 02/02/2023 4:08 PM EDTSigned Prescriptions: Disp Refills Gabapentin 300 MG Oral Capsule (Neurontin) 90 Cap*0 Sig: TAKE ONE CAPSULE BY MOUTH IN THE MORNING, ONE AT NOON AND ONE BEFORE BEDTIME Authorizing Provider: SAMANTA BYERS * Telephone Encounter - Samanta Byers MD - 02/02/2023 4:06 PM EDT 1 mth rx sent. Six-month follow-up with PCP overdue, please schedule. To have labs off site as per last clinic note from 05/2022 Hemoglobin AIC Results: Lab Results Component Value Date/Time HEMOGLOBIN A1C - [facility] 9.1 (H) 12/13/2016 07:33 AM HEMOGLOBIN A1C - [facility] 5.5 01/09/2015 10:33 AM HEMOGLOBIN A1C - [facility] 5.5 11/21/2013 04:58 PM * Telephone Encounter - Samia Garcia LPN - 02/02/2023 2:41 PM EDTPending Prescriptions: Disp Refills Gabapentin 300 MG Oral Capsule (Neurontin) 90 Cap*3 Sig: TAKE ONE CAPSULE BY MOUTH IN THE MORNING, ONE AT NOON AND ONE BEFORE BEDTIME * Telephone Encounter - Samia Garcia LPN - 02/02/2023 2:40 PM EDT Provider to address: pcp Reason for Call: eRx-Medication Refill Contact: My Jared Contact Type: Medication Outcome: Sent to providerr Total Time including non face to face (minutes): 5 Pending Prescriptions: Disp Refills Gabapentin 300 MG Oral Capsule (Neurontin*90 Cap*0 Sig: TAKE ONE CAPSULE BY MOUTH IN THE MORNING, ONE AT NOON AND ONE BEFORE BEDTIME Last Visit: 06/08/2022 (in office), Visit date not found (telemedicine) Next Visit: Visit date not found Last date the medication was ordered: 11/28/22 Patient Active Problem List Diagnosis Code Reflux [...] A1C - [facility] 5.5 11/21/2013 04:58 PM * Telephone Encounter - Jacky Taylor - 02/01/2023 9:56 PM EDTPending Prescriptions: Disp Refills Gabapentin 300 MG Oral Capsule [Pharmacy M*90 Cap*0 Sig: TAKE ONE CAPSULE BY MOUTH IN THE MORNING, ONE AT NOON AND ONE BEFORE BEDTIME documented in this encounter Plan of Treatment Scheduled Procedures Name Priority Associated Diagnoses Date/Ti [...] unspecified documented in this encounter Care Teams Menagerie Caretaker Relationship Specialty Start Date End Date Ludin Solis MD [address] [place] [address], [place] [id number] PCP - General Internal Medicine 05/01/18 documented as of this encounter
--- OUTSIDE RECORDS SUMMARY | 2023-07-30 00:58 | External Medical Summary | Summary of Care ---
Author Name Unknown Organization [facility] Address [address] [place] [address] Phone [phone] Care Team Providers Care Oil Seal Assembler Name Role Phone Ludin Soils MD Primary Care Provider + Reason for Referral * Ancillary Services (Within 30 days (routine)) - Pending Review Specialty Diagnoses / Procedures Referred By Sindhu black Referred To Contact Audiology Diagnoses Bilateral hearing loss, unspecified hearing loss type Ludin Solis MD [address] [place] [address] Referral ID Status Reason Start Date Expiration Date Visits Requested Visits Authorized [id number] Pending Review Ancillary Services Required 02/27/[phone] Question Answer Referral Priority Within 30 days (routine) Reason for Referral: Hearing Loss Is this sudden hearing loss? No * Evaluate & Treat - Unlimited Visits (Within 10 days (routine)) - Pending Review Specialty Diagnoses / Procedures Referred By Sindhu black Referred To Contact Psychology Diagnoses Mild depression Ludin Solis MD [address] [place] [address] Referral ID Status Reason Start Date Expiration Date Visits Requested Visits Authorized [id number] Pending Review Specialty Services Required 02/27/[phone] Question Answer Referral Priority Within 10 days (routine) Is this referral for medication management? No Referral To Outside [facility] Reason for Referral: Depression/Anxiety/Bipolar Specific Condition? Depression Reason for Visit * Reason Comments Follow Up 6 month follow up. Andrew colin presents with concerns for decreased hearing, does not recall last time he had audiology testing. Encounter Details Date Type Department Care Team Description 02/27/2023 Office Visit General Internal Medicine [facility] [place] [address] [place] [address] Ludin Solis MD [address] [facility], [place] [address] Type 2 diabetes mellitus with hemoglobin A1c goal of less than 7.0% ([facility])*; Mixed hyperlipidemia; HTN, goal below 140/90; Bilateral hearing loss, unspecified hearing loss type; Mild depression; Obesity, Class II, BMI 35-39.9, isolated (see actual BMI) Allergies Active Allergy Reactions Severity Noted Date [...] EVERY MORNING 90 Tablet 0 02/14/2023 Active documented as of this encounter (statuses as of 02/27/2023) Active Problems Problem Noted Date Neuralgia and neuritis 11/05/2021 Obesity, Class II, BMI 35-39.9, isolated (see actual BMI) 12/20/2018 Mixed hyperlipidemia 05/01/2018 H/O tobacco use, presenting hazards to [facility] 05/05/2016 HTN, goal below 140/90 01/10/2016 [...] yrs 01/18/2015,12/24/2013,11/21 Pneumococcal Conjugate Vacci ne, 20-valent ([id number]) 06/08/2022 Pneumococcal Polysaccharide PPV23 (Pneumovax) 10/08/2012,09/21/2008 Seasonal [...] 1 15 Smokeless Tobacco: Never Quit: 10/28/2013 Tobacco Cessation:Counseling Given: Not Answered Alcohol Use Standard Drinks/Week Comments Yes 0 [...] on file documented as of this encounter Last Filed Vital Signs Vital Sign Reading Time Taken Comments Blood Pressure 132/74 02/27/2023 9:27 AM EDT Pulse 85 02/27/2023 9:27 AM EDT Temperature 36.6 C (97.9 F) 02/27/2023 9:27 AM ED T Respiratory Rate - - Oxygen Saturation 96% 02/27/2023 9:27 AM EDT Inhaled Oxygen Concentration - - Weight 109 kg (240 lb 3.2 oz) 02/27/2023 9:27 AM EDT Height 175.3 cm (5' 9") 02/27/2023 9:27 AM EDT Body Mass Index 35.47 02/27/2023 9:27 AM EDT documented in this encounter Patient Instructions * Patient Instructions* Ludin Solis MD - 02/27/2023 9:32 AM EDT BMI (Body Mass Index) is the number obtained by dividing a person's weight in kilograms by his or her height in meters squared. BMI is used in determining obesity. BMI is not used to determine a person's actual percentage of body fat, but it is a good tool to coil tier weight in terms of what is healthy and unhealthy. It is used to identify adults at increased risk for developing weight related medical problems. Estimated body mass index is 35.47 kg/m as calculated from the following: Height as of this encounter: 1.753 m (5' 9"). Weight as of this encounter: 109 kg (240 lb 3.2 oz). Obesity - BMI 35 kg/m2 to 39.9 kg/mg - Obese individuals are at a risk for developing * Heart disease * Stroke * Diabetes * High Blood Pressure * High Cholesterol * GERD (acid reflux) * Sleep Apnea * Osteoarthritis * Fatty Liver Disease * Certain Types of Cancers * Gout * Gall Bladder Disease - Weight loss has been shown to decrease weight related medical problems. - Those with a BMI 35 kg/m2 or higher are almost ten times more likely to develop diabetes in theirlifetimes than those with a normal BMI. - A 12-week weight management text message program is also available. Go to [employer] and seethe message under '[employer]' for more information and enrollment. Patient is Instructed to: Diet: * Limit total fat intake to no more than 40 grams per day (low fat diet). * Increase fruits and vegetables to 5 servings per day, combined. * Limited starches (breads, pasta, rice, potatoes, corn, cereals) to 4 servings per day. Avoid Calorie Containing Drinks: * No fruit juices, regular sodas or sweetened drinks. * Water is preferred - 64 ounces per day unless advised of a fluid restriction. * Diet sodas and drinks permitted. Keep Honest, Accurate Food logs: * www.[employer] Talk Network * www.[employer].tv.[employer] Talk Network * If you bite it - write it! Weigh Yourself Weekly: * Morning is best. * Try to do this outside your home. * Have a friend/spouse remind you to weigh yourself, accountability to others helps. Perform 30 minutes of physical activity daily: * Can do all at once or 5 minutes 6 times per day * 8, 000-10,000 steps per day using a pedometer * Make it fun! documented in this encounter Progress Notes * Ludin Solis MD - 02/27/2023 9:32 AM EDT Chief Complaint Patient presents with Follow Up 6 month follow up. Patient presents with concerns for decreased hearing, does not recall last time he had audiology testing. SUBJECTIVE: Julio Sebastian is a 52 year old male with PMH as below who presents for Follow up DM, HTN, lipids. No cp, sob, chakraborty. fbs 130's some stress at work with new job, friend recently mood down a little. No si, hi. No n/v/d. Feels hearing slowly decreasing Patient Active Problem List Diagnosis Code Reflux esophagitis K21.00 Irritable bowel syndrome K58.9 Type 2 diabetes mellitus with hemoglobin A1c goal of less than 7.0% (HCC) E11.9 HTN, goal below 140/90 I10 H/O tobacco use, presenting hazards to health Z87.891 Mixed hyperlipidemia E78.2 Obesity, Class II, BMI 35-39.9, isolated (see actual BMI) E66.9 Neuralgia and neuritis M79.2 Current Outpatient Medications Medication Sig Dispense Refill ASPIRIN 81 MG PO TABS 1 tablet daily BD Pen Needle Kathy U/F 32G X 4 MM (Insulin Pen Needle) use once daily with solostar pen 100 Each 5 Metoprolol Tartrate 50 MG Oral Tablet (Lopressor) Take 1 Tablet by mouth in the morning and 1 Tablet before bedtime. 180 Tablet 1 Jardiance 25 MG Oral Tablet (Empagliflozin) TAKE 1 TABLET BY MOUTH EVERY MORNING 90 Tablet 0 metFORMIN HCl ER 500 MG Oral Tablet Extended Release 24 Hour (Glucophage XR) TAKE 2 TABLETS BY MOUTH IN THE MORNING AND 2 TABLETS BEFORE BEDTIME 360 Tablet 0 Lisinopril 20 MG Oral Tablet (Prinivil) TAKE 1 TABLET BY MOUTH EVERY MORNING 90 Tablet 0 Levemir FlexPen 100 UNIT/ML Subcutaneous Solution Pen-injector (Insulin Detemir) Inject 30 Units under the skin in the morning. 15 mL 0 Atorvastatin Calcium 40 MG Oral Tablet (Lipitor) TAKE 1 TABLET BY MOUTH EVERY MORNING 90 Tablet0 Betamethasone Dipropionate Aug 0.05 % External Ointment (Diprolene AF) Apply to arms/legs rash nightly as needed (Patient not taking: Reported on 06/08/2022) 30 g 1 Gabapentin 300 MG Oral Capsule (Neurontin) TAKE ONE CAPSULE BY MOUTH IN THE MORNING, ONE AT NOON AND ONE BEFORE BEDTIME (Patient not taking: Reported on 02/27/2023) 90 Capsule 0 No current facility-administered medications for this visit. Review of patient's allergies indicates: Allergen Reactions Cat Dander Other reaction(s): Sneezing Health Maintenance Due Topic Date Due Hepatitis C Screening Never done B-12 Never done HbA1c 08/14/2021 Albumin/Creatinine Ratio 02/11/2022 GFR 02/11/2022 Depression Screening, Annual for Pts 12 and Over 02/14/2022 ROS: CONSTITUTIONAL: No change in weight, No weakness and No fevers, sweats, or chills EYE: No recent significant change in vision, No eye pain, redness, discharge and No diplopia EARS: No ear pain, No drainage, No tinnitus or vertigo and per hpi PULMONARY: No cough, sputum, or hemoptysis, No wheezing, No rales, No shortness of breath and No recent change in breathing CARDIOVASCULAR: No chest pain, No shortness of breath, No dyspnea on exertion, No orthopnea, No paroxysmal nocturnal dyspnea, No edema, No palpitations and No syncope GASTROINTESTINAL: No abdominal pain, No change in bowel habits, No significant heartburn, No significant change in appetite, No nausea, vomiting, diarrhea, or constipation, No hematemesis, No blood in stools or black tarry stools, No abdominal bloating or early satiety and No dysphagia ALL OTHER SYSTEMS NEGATIVE I reviewed social, PMH, PSH, and family history and updated where needed. 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 Tobacco Use Smoking status: Former Packs/day: 1.00 Years: 15.00 Pack years: 15.00 Types: Cigarettes Smokeless tobacco: Never Substance and Sexual Activity Alcohol use: Yes Comment: occasionally Drug use: No Sexual activity: Yes Partners: Female Other Topics Concern Service Not Asked Blood Transfusions Not Asked Caffeine Concern No Occupational Exposure Not Asked Hobby Hazards Not Asked Sleep Concern Yes Comment: Trouble falling asleep Stress Concern No Weight Concern Not Asked Special Diet Not Asked Back Care Not Asked Exercise Not Asked Bike Helmet Not Asked Seat Belt Not Asked Self-Exams Not Asked Social History Narrative Not on file Social Determinants of Health Financial Resource Strain: Not on file Food Insecurity: Not on file Transportation Needs: Not on file Physical Activity: Not on file Stress: Not on file Social Connections: Not on file Intimate Partner Violence: Not on file Housing Stability: Not on file Past Medical History: Diagnosis Date Acute meniscal tear of knee DM type 2, goal A1c below 7 GERD (gastroesophageal reflux disease) H/O tobacco use, presenting hazards to health 05/05/2016 HTN, goal below 140/90 Hypertension, benign Obesity 11/21/2013 Obesity, Class II, BMI 35-39.9, isolated (see actual BMI) 12/20/2018 Panic disorder Past Surgical History: Procedure Laterality Date ARTHROSCOPY KNEE W/LAT RELEAS Right 2014 COLONOSCOPY, DIAGNOSTIC (RECTUM) 01/15/2019 adenomatous & hyperplastic polyps, repeat 5 yrs/COLONOSCOPY FLEXIBLE PROXIMAL DIAGNOSTIC performed by Matt Ramirez MD at ENDOSCOPY [facility] EGD, FLEXIBLE, W/BIOPSY 04/28/08 reflux esophagitis no Sx infection LAPAROSCOPY; CHOLECYSTECTOMY N/A 05/27/2018 LAPAROSCOPIC CHOLECYSTECTOMY performed by Adelso Swenson MD at OR [facility] Family History Problem Relation Age of Onset Heart Disorder Father at age 32 from an [place] Cancer Grandmother (Paternal) skin ca/pancreatic cancer OBJECTIVE: PHYSICAL EXAM: BP 132/74 | Pulse 85 | Temp 36.6 C (97.9 F) | Ht 1.753 m (5' 9") | Wt 109 kg (240 lb 3.2 oz) | SpO2 96% | BMI 35.47 kg/m | BSA 2.3 m General: alert, healthy and no distress Head: Normocephalic, No masses, lesions, or abnormalities Eye Exam: conjunctiva are pink and non-injected, sclera clear Ears: External ears normal, Canals clear, TM's Normal Heart: regular rate & rhythm, no murmur, no gallops, PMI non-displaced, S-1 normal and S-2 normal Lungs: normal respiratory rate and rhythm, lungs clear to auscultation Psych: normal affect, no flight of ideas or tangential thought, good eye contact, no pressured speech I reviewed last gfr, lipid, a1c ASSESSMENT: E11.9 Type 2 diabetes mellitus with hemoglobin A1c goal of less than 7.0% ([facility]) (primary encounter diagnosis) E78.2 Mixed hyperlipidemia I10 HTN, goal below 140/90 H91.93 Bilateral hearing loss, unspecified hearing loss type F32.A Mild depression E66.9 Obesity, Class II, BMI 35-39.9, isolated (see actual BMI) PLAN: Type 2 diabetes mellitus with hemoglobin A1c goal of less than 7.0% (HCC) (Primary) Cont insulin, Jardiance, metformin Again urged labs soon, he will do Mixed hyperlipidemia Await labs cnt lipitor HTN, goal below 140/90 Cont lisinopril, metoprolol Bilateral hearing loss, unspecified hearing loss type - AUDIOLOGY REFERRAL OP Mild depression - ADULT/PEDS PSYCHOLOGY REFERRAL OP Discussed med, declines, would like to do counseling, names given Obesity, Class II, BMI 35-39.9, isolated (see actual BMI) Patient counseling on weight management given per smart set at check out Follow Up: Return in about 6 months (around 08/30/2023), or if symptoms worsen or fail to improve, for Fasting Labs Soon. | For: Fasting Labs Soon | Check-out note: PLEASE PRINT ALL LABS FROM 01/29/23 Ludin Solis MD documented in this encounter Nursing Notes * Basilio Hernandez CMA - 02/27/2023 9:26 AM EDT Chief Complaint Patient presents with Follow Up 6 month follow up. Patient presents with concerns for decreased hearing, does not recall last time he had audiology testing. documented in this encounter Plan of Treatment Upcoming Encounters Date Type Specialty Care Team Description 09/05/2023 Office Visit Internal Medicine Ludin Solis MD [address] [place] [address] Scheduled Procedures Name Priority Associated Diagnoses Date/Ti me COLONOSCOPY FLEXIBLE PROXIMAL DIAGNOSTIC Recall History of colon polyps Scheduled Referrals Name Type Priority Associated Diagnoses Orde r Schedule ADULT/PEDS PSYCHOLOGY REFERRAL OP Referral Within 10 days (routine) Mild depression Ordered: 02/27/2023 AUDIOLOGY REFERRAL OP Referral Within 30 days (routine) Bilateral hearing loss, unspecified hearing loss type Ordered: 02/27/2023 Health Maintenance Due Date Last Done Comments [...] goal of less than 7.0% (HCC)- Primary Mixed hyperlipidemia HTN, goal below 140/90 Unspecified essential hypertension Bilateral hearing loss, unspecified hearing loss type Mild depression Depressive disorder, not elsewhere classified Obesity, Class II, BMI 35-39.9, isolated (see actual BMI) Morbid obesity documented in this encounter Care Teams Oil Seal Assembler Relationship Specialty Start Date End Date Ludin Solis MD [address] [place] [address], [place] [address] PCP - General Internal Medicine 05/01/18 documented as of this encounter
--- OUTSIDE RECORDS SUMMARY | 2023-07-30 00:58 | External Medical Summary | Summary of Care ---
Author Name Unknown Organization [facility] Address [address] [facility] [address] Phone [phone] Care Team Providers Care Restaurant Assistant Manager Name Role Phone Ludin Lim MD Primary Care Provider + Reason for Visit * Reason Onset Date Comments Medication Refill 01/29/2023 Appointment 01/29/2023 Encounter Details Date Type Department Care Team Description 01/29/2023 Telephone General Internal Medicine [facility] [address] [facility] [address] Ludin Lim MD [address] [place] [address] Medication Refill; Appointment Allergies Active Allergy Reactions Severity Noted Date Comments Cat Dander 10/28/2018 Other reaction(s): Sneezing documented as of this encounter (statuses as of 02/03/2023) Medications Medication Sig Dispensed Refills Start Date End Date Status ASPIRIN 81 MG PO TABS 1 tablet daily 0 Active Betamethasone Dipropionate Aug 0.05 % External Ointment (Diprolene AF)Indications:D ermatitis Apply to arms/legs rash nightly as needed 30 g 1 Active Additional Information Patient not taking.Reported on 06/08/2022 BD Pen Needle Kathy U/F 32G X 4 MM (Insulin Pen Needle)Indicatio ns:Type 2 diabetes mellitus with hemoglobin A1c goal of less than 7.0% ([facility]) use once daily with solostar pen 100 Each 5 2 Active Atorvastatin Calcium 40 MG Oral Tablet (Lipitor)Indicat ions:Hyperlipide maddison TAKE 1 TABLET BY MOUTH EVERY MORNING 90 Tablet 0 3 Active Metoprolol Tartrate 50 MG Oral Tablet (Lopressor)Indic ations:HTN, goal below 140/90 Take 1 Tablet by mouth in the morning and 1 Tablet before bedtime. 180 Tablet 1 3 Active Jardiance 25 MG Oral Tablet (Empagliflozin) TAKE 1 TABLET BY MOUTH EVERY MORNING 90 Tablet 0 3 Active metFORMIN HCl ER 500 MG Oral Tablet Extended Release 24 Hour (Glucophage XR) TAKE 2 TABLETS BY MOUTH IN THE MORNING AND 2 TABLETS BEFORE BEDTIME 360 Tablet 0 3 Active Lisinopril 20 MG Oral Tablet (Prinivil)Indica tions:HTN, goal below 140/90 TAKE 1 TABLET BY MOUTH EVERY MORNING 90 Tablet 0 3 Active Levemir FlexPen 100 UNIT/ML Subcutaneous Solution Pen-injector (Insulin Detemir) Inject 30 Units under the skin in the morning. 15 mL 0 3 Active Gabapentin 300 MG Oral Capsule (Neurontin)Indic ations:Neuralgia and neuritis Take 1 Capsule by mouth in the morning and 1 Capsule at noon and 1 Capsule before bedtime. 90 Capsule 1 3 02/03/20 23 Discontinued Levemir FlexPen 100 UNIT/ML Subcutaneous Solution Pen-injector (Insulin Detemir) INJECT 30 UNITS UNDER THE SKIN IN THE MORNING 15 mL 0 3 01/30/20 23 Discontinued(Ref ill) documented as of this encounter (statuses as of 02/03/2023) Active Problems Problem Noted Date Neuralgia and neuritis 11/05/2021 Obesity, Class II, BMI 35-39.9, isolated (see actual BMI) 12/20/2018 Mixed hyperlipidemia 05/01/2018 H/O tobacco use, presenting hazards to [facility] 05/05/2016 HTN, goal below 140/90 01/10/2016 [...] 30 Mcg, IM, 12 yrs and above ([employer]) 04/25/2022 Hepatitis B, 20+ yrs 01/18/2015,12/24/2013,11/21 Pneumococcal Conjugate Vacci ne, 20-valent ([id number]) 06/08/2022 Pneumococcal Polysaccharide PPV23 (Pneumovax) 10/08/2012,09/21/2008 Seasonal [...] Telephone Encounter - SKY Miller - 02/03/2023 11:53 AM EDT My g sent 02/03 2nd * Telephone Encounter - SKY Andrade - [...] labs again today, does he want to poultry picking machine tender labs or have us fax them somewhere.It [...] goal of less than 7.0% ([facility]) E11.9 HTN, goal below 140/90 I10 H/O [...] diseases documented in this encounter Care Teams Restaurant Assistant Manager Relationship Specialty Start Date End Date Ludin Lim MD [address] [place] [address] PCP - General Internal Medicine 05/01/18 documented as of this encounter
--- OUTSIDE RECORDS SUMMARY | 2023-07-30 00:58 | External Medical Summary | Summary of Care ---
Author Name Unknown Organization [facility] Address [address] [facility] [address] Phone [phone] Care Team Providers Care Anode Machine Operator Name Role Phone Ludin Lim MD Primary Care Provider + Reason for Visit * Reason Onset Date Comments Medication Refill 01/29/2023 Appointment 01/29/2023 Encounter Details Date Type Department Care Team Description 01/29/2023 Telephone General Internal Medicine [facility] [address] [facility] [address] Ludin Lim MD [address] [place] [address] Medication Refill; Appointment Allergies Active Allergy Reactions Severity Noted Date Comments Cat Dander 10/28/2018 Other reaction(s): Sneezing documented as of this encounter (statuses as of 02/05/2023) Medications Medication Sig Dispensed Refills Start Date [...] goal of less than 7.0% ([facility]) use once daily with solostar [...] as of this encounter (statuses as of 02/05/2023) Active Problems Problem Noted Date Neuralgia and neuritis 11/05/2021 Obesity, Class II, BMI 35-39.9, isolated (see actual BMI) 12/20/2018 Mixed hyperlipidemia 05/01/2018 H/O tobacco use, presenting hazards to [facility] 05/05/2016 HTN, goal below 140/90 01/10/2016 Overview: Per HTN Protocol Irritable bowel syndrome 06/22/2008 Reflux esophagitis 05/15/2008 Type 2 diabetes mellitus with hemoglobin A1c goal of less than 7.0% Overview: ICD-10 update of inactive term documented as of this encounter (statuses as of 02/05/2023) Resolved Problems Problem Noted Date Resolved Date [...] as of this encounter (statuses as of 02/05/2023) Immunizations Name Administration Dates Next Due COVID-19 mRNA, LNP-s, No Pre serve, 2-Dose Series (Moderna) 10/14/2020,09/04/2020 Covid-19 Mrna, Lnp-s, No Pre serve, Booster (Moderna) 11/07/2021,07/04/2021 Covid-19, Mrna, Lnp-s, Pf, B ivalent, 30 Mcg, IM, 12 yrs and above ([employer]) 04/25/2022 Hepatitis B, 20+ yrs 01/18/2015,12/24/2013,11/21 Pneumococcal Conjugate Vacci ne, 20-valent ([id number]) 06/08/2022 Pneumococcal Polysaccharide PPV23 (Pneumovax) 10/08/2012,09/21/2008 Seasonal [...] * Telephone Encounter - SKY Miller - 02/05/2023 2:51 PM EDT Several attempts Letter sent * Telephone Encounter - SKY Miller - 02/03/2023 11:53 AM EDT My g sent 02/03 2nd attempt * Telephone Encounter - SKY Andrade - [...] labs again today, does he want to filler picker labs or have us fax them [...] goal of less than 7.0% ([facility]) E11.9 HTN, goal below 140/90 I10 H/O [...] Encounters Date Type Specialty Care Team Description 02/27/2023 Office Visit Internal Medicine Ludin Lim MD [address] [place] [address] Scheduled Orders Name Type Priority Associated Diagnoses [...] diseases documented in this encounter Care Teams Anode Machine Operator Relationship Specialty Start Date End Date Ludin Lim MD [address] [place] [address] PCP - General Internal Medicine 05/01/18 documented as of this encounter
--- OUTSIDE RECORDS SUMMARY | 2023-07-30 00:58 | External Medical Summary | Summary of Care ---
Author Name Unknown Organization [facility] Address [address] [place] [address] Phone [phone] Care Team Providers Care Envelope Machine Adjuster Name Role Phone Ludin Solis MD Primary Care Provider + Reason for Visit * Reason Comments eRx-Medication Refill Encounter Details Date Type Department Care Team Description 02/01/2023 Refill General Internal [facility] [address] [facility] [address] Ludin Solis MD [address] [place] [address] Neuralgia and neuritis Allergies Active Allergy Reactions [...] 05/01/2018 H/O tobacco use, presenting hazards to [facility] 05/05/2016 HTN, goal below 140/90 [...] yrs 01/18/2015,12/24/2013,11/21 Pneumococcal Conjugate Vacci ne, 20-valent ([id number]) 06/08/2022 Pneumococcal Polysaccharide PPV23 (Pneumovax) 10/08/2012,09/21/2008 Seasonal [...] Telephone Encounter - SKY Miller - 02/05/2023 1:52 PM EDT appt is scheduled pt is aware * Telephone Encounter - SKY Miller - [...] Description 02/27/2023 Office Visit Internal Medicine Ludin Solis MD [address] [place] [address], [place] [address] Scheduled Procedures Name Priority Associated Diagnoses Date/Ti [...] unspecified documented in this encounter Care Teams Envelope Machine Adjuster Relationship Specialty Start Date End Date Ludin Solis MD [address] [place] [address], [place] [address] PCP - General Internal Medicine 05/01/18 documented as of this encounter
[2023-07-30] MEDS ORDERED: ONDANSETRON INJ 2 MG/ML 2 ML VIAL IV STA ×2 (01:00→02:31)
[2023-07-30] MEDS ORDERED: FAMOTIDINE 20MG IV PUSH 20 MG/5 ML SYR IV STA (01:00)
[2023-07-30] MEDS ORDERED: MoRPHine SULFATE 4 MG/ML 1 ML CARP\\VIAL IV STA (01:00)
--- NOTE | 2023-07-30 01:09 | Emergency Department Note ---
History of Present Illness General Chief complaint: Illness Time Seen by Provider: 07/30/23 00:54 History of Present Illness Maximum Pain Intensity: 5 This 53-year-old male presents the ER complaining of nausea vomiting abdominal pain for the past few days he developed severe shortness of breath for the past few hours. Patient denies chest pain, cough, congestion, flank pain, urinary symptoms. He has had some diarrhea but this has been chronic since his cholecystectomy years ago. He has been unable to keep his medicines down. No recent blood sugar check. No recent travel. No other abdominal surgeries. Home Medications Medication Instructions Recorded Confirmed Type aspirin 81 mg tablet,delayed 81 mg PO DAILY 10/28/18 07/30/23 History release atorvastatin 40 mg tablet 40 mg PO QAM 10/28/18 07/30/23 History metoprolol tartrate 50 mg tablet 50 mg PO AMHS 10/28/18 07/30/23 History empagliflozin 25 mg tablet 25 mg PO QA 07/30/23 07/30/23 History (Jardiance) gabapentin 300 mg capsule 300 mg PO TID 07/30/23 07/30/23 History insulin glargine 100 unit/mL (3 30 unit subcut QA 07/30/23 07/30/23 History mL) subcutaneous pen (Basaglar KwikPen U-100 Insulin) lisinopril 20 mg tablet 20 mg PO [facility] 07/30/23 07/30/23 History metformin 500 mg tablet,extended 1,000 mg PO AMHS 07/30/23 07/30/23 History release 24 hr Allergies Allergy/AdvReac Type Severity Reaction Status Date / Time cat dander Allergy Sneezing Verified 07/30/23 01:32 Past Med/Surg History Medical History Ureteral calculus Hypertension Diabetes Social History Smoking Status: Former smoker Hx Alcohol Use: No Hx Substance Use: No Preferred Language: Yemeni Program Management Manager Required: No Beliefs That Will Affect Care: None Current Living Situation: Alone Other Information That Helps Us Care for You: No Feels Safe at Home: Yes Safety Concerns: Feels Safe At This Time Assistive Devices: Glasses Review of Systems A total of 10 systems reviewed and were otherwise negative Physical Exam Vital Signs Vital Signs - 24 hr 07/30/23 00:49 07/30/23 01:01 07/30/23 01:21 Temperature 37.5 C Temperature Source Temporal Artery Scan Pulse Rate 138 H 134 H Pulse Rate [Apical] 126 H Pulse Rate from SpO2 Sensor Pulse Rhythm Regular Pulse Strength Normal Respiratory Rate 23 33 H Respiratory Effort / Characteristics Non-Labored Spontaneous Respiratory Depth Normal Respiratory Pattern Regular Blood Pressure Blood Pressure [Right Arm] 167/89 H Blood Pressure Mean Blood Pressure Mean [Right Arm] 115 Blood Pressure Position Sitting Blood Pressure Position [Right Arm] Lying Pulse Oximetry 96 97 Oxygen Delivery Method Room Air Room Air Sepsis Recent Fever Within 48 Hours No Sepsis New/Unexplained Change in Mental Status N/A Sepsis Action Taken by Nursing No Action Required 07/30/23 03:23 Temperature Temperature Source Pulse Rate 113 H Pulse Rate [Apical] Pulse Rate from SpO2 Sensor 110 H Pulse Rhythm Pulse Strength Respiratory Rate 22 Respiratory Effort / Characteristics Respiratory Depth Respiratory Pattern Blood Pressure 157/78 H Blood Pressure [Right Arm] Blood Pressure Mean 96 Blood Pressure Mean [Right Arm] Blood Pressure Position Blood Pressure Position [Right Arm] Pulse Oximetry 100 Oxygen Delivery Method Room Air Sepsis Recent Fever Within 48 Hours Sepsis New/Unexplained Change in Mental Status Sepsis Action Taken by Nursing VITALS: Vitals are noted on the nurse's note and reviewed by myself. Vital signs stable. GENERAL: Pleasant male who appears short of breath and in pain, in no acute distress, nondiaphoretic, well-developed well-nourished. SKIN: Capillary reflex less than 2 seconds. HEENT: Normocephalic. PERRLA. EOMI. Nares patent. Mucous membranes moist. Neck is supple without nuchal rigidity. HEART: Tachycardic rate and rhythm LUNGS: Clear to auscultation bilaterally without wheezes, rales or rhonchi. No retractions or accessory muscle use. ABDOMEN: Positive bowel sounds x 4. Normal tympanic percussion. Soft, distended tender to palpation diffusely, without masses or organomegaly. Abbasi sign negative. No guarding or rebound tenderness. No CVA tenderness MUSCULOSKELETAL: No gross musculoskeletal defects. NEURO: Patient was alert and oriented to person place and time. No focal neurological deficits. Course Administered Medications Aspirin (Aspirin 81 Mg Ectab) 81 mg PO DAILY HENRY Stop: 08/29/23 08:59 Last Admin: 07/30/23 12:11 Dose: 81 mg Documented By: DUKE Atorvastatin Calcium (Atorvastatin 40 Mg Tab) 40 mg PO QAM [facility] Stop: 08/29/23 08:59 Last Admin: 07/30/23 12:11 Dose: 40 mg Documented By: DUKE Enoxaparin Sodium (Enoxaparin Inj 40 Mg/0.4 Ml Syr) 40 mg SQ Q24H HENRY Stop: 08/29/23 08:59 Last Admin: 07/30/23 12:11 Dose: 40 mg Documented By: DUKE Gabapentin (Gabapentin 300 Mg Cap) 300 mg PO TID HENRY Stop: 08/29/23 08:59 Last Admin: 07/30/23 20:03 Dose: 300 mg Documented By: Admin: 07/30/23 14:53 Dose: 300 mg Documented By: Admin: 07/30/23 12:11 Dose: 300 mg Documented By: DUKE Insulin Human Regular 250 (units/ Sodium Chloride) 250 mls @ 1 mls/hr IV .Q24H [facility]; Protocol Stop: 08/29/23 02:59 Last Titration: 07/31/23 05:03 Dose: 1 units/hr, 1 mls/hr Documented By: ISIDORO Co-signed By: DIEGO Titration: 07/30/23 20:31 Dose: 1.3 units/hr, 1.3 mls/hr Documented By: ISIDORO Co-signed By: CP Titration: 07/30/23 19:05 Dose: 0 units/hr, 0 mls/hr Documented By: JOANNE Co-signed By: ISIDORO Titration: 07/30/23 18:02 Dose: 2.1 units/hr, 2.1 mls/hr Documented By: JOANNE Co-signed By: EMELY Titration: 07/30/23 15:57 Dose: 2.6 units/hr, 2.6 mls/hr Documented By: CARMEN Co-signed By: ARS Titration: 07/30/23 14:43 Dose: 3.2 units/hr, 3.2 mls/hr Documented By: DUKE Co-signed By: COSTA Titration: 07/30/23 13:24 Dose: 3.2 units/hr, 3.2 mls/hr Documented By: COSTA Co-signed By: APOLONIA Titration: 07/30/23 12:20 Dose: 3.2 units/hr, 3.2 mls/hr Documented By: DUKE Co-signed By: COSTA Titration: 07/30/23 11:04 Dose: 3.2 units/hr, 3.2 mls/hr Documented By: COSTA Co-signed By: DUKE Titration: 07/30/23 09:49 Dose: 4 units/hr, 4 mls/hr Documented By: DUKE Co-signed By: MMZ Titration: 07/30/23 08:40 Dose: 5 units/hr, 5 mls/hr Documented By: DUKE Co-signed By: ML Titration: 07/30/23 08:15 Dose: 0 units/hr, 0 mls/hr Documented By: MALA Co-signed By: MMQuan Titration: 07/30/23 06:28 Dose: 8.5 units/hr, 8.5 mls/hr Documented By: MILE Co-signed By: MALAIKA Titration: 07/30/23 05:07 Dose: 8.5 units/hr, 8.5 mls/hr Documented By: MILE Co-signed By: MALAIKA Admin: 07/30/23 04:01 Dose: 8.5 units/hr, 8.5 mls/hr Documented By: MILE Co-signed By: Dextrose/Lactated Ringer's (D5w And Lactated Ringers) 1,000 mls @ 125 mls/hr IV .Q8H [facility] Stop: 08/29/23 03:14 Last Infusion: 07/31/23 08:04 Dose: Infused Documented By: Admin: 07/30/23 23:42 Dose: 125 mls/hr Documented By: Infusion: 07/30/23 23:15 Dose: Infused Documented By: Infusion: 07/30/23 19:05 Dose: 125 mls/hr Documented By: Admin: 07/30/23 13:05 Dose: 80 mls/hr Documented By: Infusion: 07/30/23 13:05 Dose: Infused Documented By: Admin: 07/30/23 03:54 Dose: 125 mls/hr Documented By: MILE Insulin Aspart (Insulin Aspart Per Unit Charge) 0 units SC ACHS [facility] Stop: 08/29/23 07:29 Last Admin: 07/31/23 08:05 Dose: Not Given Documented By: Admin: 07/30/23 20:33 Dose: Not Given Documented By: Admin: 07/30/23 16:48 Dose: Not Given Documented By: Admin: 07/30/23 14:21 Dose: Not Given Documented By: DUKE Co-signed By: APOLONIA Admin: 07/30/23 09:51 Dose: Not Given Documented By: DUKE Co-signed By: MMZ Lisinopril (Lisinopril 20 Mg Tab) 20 mg PO QAM [facility] Stop: 08/29/23 08:59 Last Admin: 07/30/23 12:11 Dose: 20 mg Documented By: DUKE Metoprolol Tartrate (Metoprolol Tartrate 50 Mg Tab) 50 mg PO AMHS [facility] Stop: 08/29/23 08:59 Last Admin: 07/30/23 20:03 Dose: 50 mg Documented By: Admin: 07/30/23 12:11 Dose: 50 mg Documented By: DUKE Ondansetron HCl (Ondansetron Inj 2 Mg/Ml 2 Ml Vial) 4 mg IV Q6H PRN PRN Reason: Nausea And Vomiting Stop: 08/29/23 06:31 Last Admin: 07/30/23 11:08 Dose: 4 mg Documented By: COSTA Pantoprazole Sodium (Pantoprazole 40 Mg Tab) 40 mg PO BID [facility] Stop: 08/29/23 08:59 Last Admin: 07/30/23 20:04 Dose: 40 mg Documented By: Admin: 07/30/23 12:11 Dose: 40 mg Documented By: DUKE Potassium Phosphate (Pot Phosphate Monobasic W/ Sod Tab) 1 tab PO QID [facility] Stop: 07/31/23 12:59 Last Admin: 07/30/23 20:03 Dose: 1 tab Documented By: Admin: 07/30/23 18:23 Dose: 1 tab Documented By: Admin: 07/30/23 13:06 Dose: 1 tab Documented By: COSTA Discontinued Medications Sodium Chloride (Nss) 1,000 mls @ 999 mls/hr IV .Q1H1M [facility] Stop: 07/30/23 03:00 Last Infusion: 07/30/23 04:02 Dose: Infused Documented By: Admin: 07/30/23 03:01 Dose: 999 mls/hr Documented By: Infusion: 07/30/23 02:40 Dose: Infused Documented By: Admin: 07/30/23 01:39 Dose: 999 mls/hr Documented By: LETTY Famotidine (Pepcid 20mg Iv Push) 20 mg in 5 mls @ 2.5 mls/min IV NOW STA Stop: 07/30/23 01:01 Last Admin: 07/30/23 01:36 Dose: 2.5 mls/min Documented By: LETTY Pantoprazole Sodium 40 mg/ (Syringe) 10 mls @ 5 mls/min IV NOW ONE Stop: 07/30/23 02:32 Last Admin: 07/30/23 06:39 Dose: 5 mls/min Documented By: MILE Lactated Ringer's (Lr) 1,000 mls @ 999 mls/hr IV .Q1H1M ONE Stop: 07/30/23 03:40 Last Admin: 07/30/23 03:37 Dose: Not Given Documented By: MILE Parenteral Electrolytes (Plasma-Lyte A Ph 7.4) 1,000 mls @ 125 mls/hr IV .Q8H [facility] Stop: 08/29/23 02:59 Last Admin: 07/30/23 03:37 Dose: Not Given Documented By: MILE Sodium Chloride (Nss) 500 mls @ 999 mls/hr IV .Q31M ONE Stop: 07/30/23 16:51 Last Infusion: 07/30/23 17:43 Dose: Infused Documented By: Admin: 07/30/23 17:05 Dose: 999 mls/hr Documented By: JOANNE Ioversol (Optiray 320 125ml) 125 ml IV ONCE ONE Stop: 07/30/23 01:33 Last Admin: 07/30/23 01:32 Dose: 116 ml Documented By: MACK Suarezcellaneous (Stat Iv Infusion Titration Per Protocol) 1 each N/A NOW STA Stop: 07/30/23 02:52 Last Admin: 07/30/23 13:05 Dose: 1 each Documented By: COSTA Morphine Sulfate (Morphine Sulfate 4 Mg/Ml 1 Ml Carp\Vial) 4 mg IV NOW STA Stop: 07/30/23 01:01 Last Admin: 07/30/23 01:38 Dose: 4 mg Documented By: LETTY Ondansetron HCl (Ondansetron Inj 2 Mg/Ml 2 Ml Vial) 4 mg IV NOW STA Stop: 07/30/23 01:01 Last Admin: 07/30/23 01:36 Dose: 4 mg Documented By: LETTY Ondansetron HCl (Ondansetron Inj 2 Mg/Ml 2 Ml Vial) 4 mg IV NOW STA Stop: 07/30/23 02:32 Last Admin: 07/30/23 03:01 Dose: 4 mg Documented By: Critical Care Time Critical Care Time: Yes Total Critical Care Time: 35 I have personally spent 35 minutes of critical care time in the direct management of this patient. This includes bedside care, interpretation of diagnostic studies, and testing, discussion with consultants, patient, and family members, and other required patient management activities. This 35 minutes is in excess of all separately billable procedures. Medical Decision Making Medical Records Attestation: I reviewed the patient's medical records. Home Medications Current Medication List: was personally reviewed by me Laboratory Data Attestation: I reviewed the patient's lab results. 07/31/23 06:03 07/30/23 23:47 Lab Results 07/30/23 07/30/23 07/30/23 Range/Units 01:14 01:18 01:19 WBC 18.29 H (4.8-10.8) K/ul RBC 5.93 (4.70-6.10) M/uL Hgb 17.4 (14.0-18.0) g/dl POC Hgb 18.7 H (14.0-18.0) g/dl Hct 55.3 H (42.0-52.0) % POC Hct 55 H (42-52) % MCV 93.3 (80.0-100.0) fL MCH 29.3 (25.0-34.0) pg MCHC 31.5 L (32.0-36.0) g/dL RDW Std Deviation 48.8 H (36.4-46.3) fL RDW Coeff of Elena 14.2 (11.5-14.5) % Plt Count 379 (130-400) K/uL MPV 9.7 (9.4-12.4) fL Immature Gran % (Auto) 2.0 % Neut % (Auto) 84.6 % Lymph % (Auto) 7.4 % Whitman % (Auto) 5.4 % Eos % (Auto) 0.1 % Baso % (Auto) 0.5 % Neut # (Auto) 15.47 H (1.40-6.50) K/uL Lymph # (Auto) 1.36 (1.20-3.40) K/uL Whitman # (Auto) 0.99 H (0.11-0.59) K/uL Eos # (Auto) 0.01 (0.00-0.50) K/uL Baso # (Auto) 0.10 (0.00-0.20) K/uL Immature Gran # (Auto) 0.36 H (0.01-0.20) K/uL VBG pH (7.36-7.41) VBG pCO2 (38-50) mmHg VBG pO2 mmHg VBG HCO3 mmol/L VBG O2 Saturation % VBG Base Excess mEq/L POC Sodium 134 L (135-144) mmol/L Sodium 133 L (136-145) mmol/L POC Potassium 5.1 H (3.3-5.0) mmol/L Potassium 5.1 (3.5-5.1) mmol/L POC Chloride 109 (101-112) mmol/L Chloride 99 (98-107) mmol/L Carbon Dioxide 4 L* (21-32) mmol/L POC Total CO2 6 L* (24-31) mmol/L Anion Gap 30 H (3-11) POC Anion Gap 25.0 (16-25) mmol/L POC BUN 28 H (7-18) mg/dl BUN 27 H (6-23) mg/dl Creatinine 1.26 (0.6-1.4) mg/dl POC Creatinine 0.9 (0.6-1.3) mg/dl Est Cr Clr Drug Dosing 73.4 ml/min Est GFR ( Amer) 75.0 ml/min Est GFR (Non-Af Amer) 64.7 ml/min BUN/Creatinine Ratio 21.4 H (10-20) Glucose 289 H (70-99(Fasting)) mg/dl POC Glucose (other) 291 H (70-99) mg/dl Lactate 3.0 H* (0.4-2.0) mmol/L Calcium 8.5 L (8.6-10.3) mg/dl POC Ioniz Calcium Omayra 1.20 (1.12-1.32) mmol/l Magnesium 2.1 (1.7-2.4) mg/dl Total Bilirubin 0.4 (0.2-1.0) mg/dl Direct Bilirubin 0.1 (0-0.2) mg/dl AST 18 (13-39) U/L ALT 31 (7-52) U/L Alkaline Phosphatase 105 H (34-104) U/L Troponin I High Sens 6.4 (0-20) pg/ml Total Protein 8.0 (6.0-8.3) gm/dl Albumin 4.5 (3.4-5.0) gm/dl Procalcitonin 0.14 (0-0.5) ng/ml Urine Color Urine Appearance (Clear) Urine pH (4.5-7.5) Ur Specific Shepherd (1.000-1.030) Urine Protein (Negative) Urine Glucose (UA) (Negative) Urine Ketones (Negative) Urine Blood (Negative) Urine Nitrite (Negative) Urine Bilirubin (Negative) Urine Urobilinogen (Negative) Ur Leukocyte Esterase (Negative) Urine WBC (Auto) (0-5) /hpf Urine RBC (Auto) (0-4) /hpf U Hyaline Cast (Auto) (0-5) /lpf U Epithel Cells (Auto) (0-5) /lpf Urine Bacteria (Auto) (Negative) Salicylates < 3.0 L (3.0-30) mg/dl Urine Opiates Screen (Neg) Ur Methadone, Qual (Neg) Acetaminophen < 3 L (10-30) ug/ml Urine Barbiturates (Neg) Ur Phencyclidine (PCP) (Neg) U Amphetamin/Meth Scrn (Neg) MDMA (Ecstasy) Screen (Neg) U Benzodiazepines Scrn (Neg) Ur Cocaine Metabolite (Neg) U Marijuana (THC) Screen (Neg) Adenovirus (PCR) Not Detected (NotDetected) B. pertussis DNA (PCR) Not Detected (NotDetected) B.parapertussis DNA PCR Not Detected (NotDetected) C. pneumoniae DNA (PCR) Not Detected (NotDetected) Coronavirus OC43 (PCR) Not Detected (NotDetected) Coronavirus HKU1 (PCR) DETECTED A* (NotDetected) Coronavirus 229E (PCR) Not Detected (NotDetected) SARS-CoV-2 (PCR) Not Detected (NotDetected) Coronavirus NL63 (PCR) Not Detected (NotDetected) Human Metapneumovir PCR Not Detected (NotDetected) Influenza Type A (PCR) Not Detected (NotDetected) Influenza Type B (PCR) Not Detected (NotDetected) M. pneumoniae (PCR) Not Detected (NotDetected) Parainfluenza 1 (PCR) Not Detected (NotDetected) Parainfluenza 2 (PCR) Not Detected (NotDetected) Parainfluenza 3 (PCR) Not Detected (NotDetected) Parainfluenza 4 (PCR) Not Detected (NotDetected) RSV (PCR) Not Detected (NotDetected) Entero/Rhino (PCR) Not Detected (NotDetected) 07/30/23 07/30/23 Range/Units 02:26 02:58 WBC (4.8-10.8) K/ul RBC (4.70-6.10) M/uL Hgb (14.0-18.0) g/dl POC Hgb (14.0-18.0) g/dl Hct (42.0-52.0) % POC Hct (42-52) % MCV (80.0-100.0) fL MCH (25.0-34.0) pg MCHC (32.0-36.0) g/dL RDW Std Deviation (36.4-46.3) fL RDW Coeff of Elena (11.5-14.5) % Plt Count (130-400) K/uL MPV (9.4-12.4) fL Immature Gran % (Auto) % Neut % (Auto) % Lymph % (Auto) % Whitman % (Auto) % Eos % (Auto) % Baso % (Auto) % Neut # (Auto) (1.40-6.50) K/uL Lymph # (Auto) (1.20-3.40) K/uL Whitman # (Auto) (0.11-0.59) K/uL Eos # (Auto) (0.00-0.50) K/uL Baso # (Auto) (0.00-0.20) K/uL Immature Gran # (Auto) (0.01-0.20) K/uL VBG pH 7.01 L (7.36-7.41) VBG pCO2 24 L (38-50) mmHg VBG pO2 32 mmHg VBG HCO3 6 mmol/L VBG O2 Saturation < 60.0 % VBG Base Excess -23.7 mEq/L POC Sodium (135-144) mmol/L Sodium (136-145) mmol/L POC Potassium (3.3-5.0) mmol/L Potassium (3.5-5.1) mmol/L POC Chloride (101-112) mmol/L Chloride (98-107) mmol/L Carbon Dioxide (21-32) mmol/L POC Total CO2 (24-31) mmol/L Anion Gap (3-11) POC Anion Gap (16-25) mmol/L POC BUN (7-18) mg/dl BUN (6-23) mg/dl Creatinine (0.6-1.4) mg/dl POC Creatinine (0.6-1.3) mg/dl Est Cr Clr Drug Dosing ml/min Est GFR ( Amer) ml/min Est GFR (Non-Af Amer) ml/min BUN/Creatinine Ratio (10-20) Glucose (70-99(Fasting)) mg/dl POC Glucose (other) (70-99) mg/dl Lactate (0.4-2.0) mmol/L Calcium (8.6-10.3) mg/dl POC Ioniz Calcium Omayra (1.12-1.32) mmol/l Magnesium (1.7-2.4) mg/dl Total Bilirubin (0.2-1.0) mg/dl Direct Bilirubin (0-0.2) mg/dl AST (13-39) U/L ALT (7-52) U/L Alkaline Phosphatase (34-104) U/L Troponin I High Sens (0-20) pg/ml Total Protein (6.0-8.3) gm/dl Albumin (3.4-5.0) gm/dl Procalcitonin (0-0.5) ng/ml Urine Color Yellow Urine Appearance Clear (Clear) Urine pH 5.0 (4.5-7.5) Ur Specific Shepherd 1.041 H (1.000-1.030) Urine Protein 1+ H (Negative) Urine Glucose (UA) 3+ H (Negative) Urine Ketones 4+ H (Negative) Urine Blood Trace H (Negative) Urine Nitrite Negative (Negative) Urine Bilirubin Negative (Negative) Urine Urobilinogen Negative (Negative) Ur Leukocyte Esterase Negative (Negative) Urine WBC (Auto) 1-5 (0-5) /hpf Urine RBC (Auto) 0-4 (0-4) /hpf U Hyaline Cast (Auto) 1-5 (0-5) /lpf U Epithel Cells (Auto) 10-20 H (0-5) /lpf Urine Bacteria (Auto) Negative (Negative) Salicylates (3.0-30) mg/dl Urine Opiates Screen Pos H (Neg) Ur Methadone, Qual Neg (Neg) Acetaminophen (10-30) ug/ml Urine Barbiturates Neg (Neg) Ur Phencyclidine (PCP) Neg (Neg) U Amphetamin/Meth Scrn Neg (Neg) MDMA (Ecstasy) Screen Neg (Neg) U Benzodiazepines Scrn Neg (Neg) Ur Cocaine Metabolite Neg (Neg) U Marijuana (THC) Screen Neg (Neg) Adenovirus (PCR) (NotDetected) B. pertussis DNA (PCR) (NotDetected) B.parapertussis DNA PCR (NotDetected) C. pneumoniae DNA (PCR) (NotDetected) Coronavirus OC43 (PCR) (NotDetected) Coronavirus HKU1 (PCR) (NotDetected) Coronavirus 229E (PCR) (NotDetected) SARS-CoV-2 (PCR) (NotDetected) Coronavirus NL63 (PCR) (NotDetected) Human Metapneumovir PCR (NotDetected) Influenza Type A (PCR) (NotDetected) Influenza Type B (PCR) (NotDetected) M. pneumoniae (PCR) (NotDetected) Parainfluenza 1 (PCR) (NotDetected) Parainfluenza 2 (PCR) (NotDetected) Parainfluenza 3 (PCR) (NotDetected) Parainfluenza 4 (PCR) (NotDetected) RSV (PCR) (NotDetected) Entero/Rhino (PCR) (NotDetected) Imaging Data Attestation: I personally reviewed and interpreted this imaging study as follows: Radiologist's Impression: Abdomen/Pelvis CT 07/30/23 01:00 Exam(s): CT ABDOMEN + PELVIS With Contrast IV Amt: 116 ml optiray 320 EXAM: CT Abdomen and Pelvis With Intravenous Contrast CLINICAL HISTORY: Reason for exam: severe pain, sob. TECHNIQUE: Axial computed tomography images of the abdomen and pelvis with intravenous contrast. CTDI is 28.14 mGy and DLP is 2367.07 mGy-cm. Automated exposure control was utilized for the study. A dose lowering technique was utilized adhering to the principles of ALARA. CONTRAST: Patient received 116 ml optiray 320 of IV contrast COMPARISON: CT abdomen and pelvis 10/28/18 FINDINGS: Limitations: Motion artifact. Lung bases: Clear lung bases. No consolidation. ABDOMEN: Liver: Calcified granuloma right hepatic lobe. Gallbladder and bile ducts: Cholecystectomy. No ductal dilation. Pancreas: Unremarkable. No mass. No ductal dilation. Spleen: Unremarkable. No splenomegaly. Adrenals: Unremarkable. No mass. Kidneys and ureters: Unremarkable. No solid mass. No hydronephrosis. Stomach and bowel: Unremarkable. No mucosal thickening. No bowel obstruction. Scattered colonic diverticula. PELVIS: Appendix: Normal appendix. Bladder: Unremarkable. No mass. Reproductive: Unremarkable as visualized. ABDOMEN and PELVIS: Intraperitoneal space: Unremarkable. No free air. No significant fluid collection. Bones/joints: No acute fracture or dislocation. Soft tissues: Fat-containing inguinal hernias. Vasculature: Unremarkable. No abdominal aortic aneurysm. Lymph nodes: Unremarkable. No enlarged lymph nodes. IMPRESSION: No acute findings in the abdomen or pelvis. Electronically signed by: Jorge Vieira M.D. 07/30/23 02:14 AM Chest CTA 07/30/23 01:00 Exam(s): CTA CHEST IV Amt: 116 ml optiray 320 EXAM: CT Angiography Chest With Intravenous Contrast CLINICAL HISTORY: Reason for exam: PE. TECHNIQUE: Axial computed tomographic angiography images of the chest with intravenous contrast. CTDI is 28.14 mGy and DLP is 2367.07 mGy-cm. Automated exposure control was utilized for the study. A dose lowering technique was utilized adhering to the principles of ALARA. MIP reconstructed images were created and reviewed. COMPARISON: No relevant prior studies available. FINDINGS: Pulmonary arteries: Adequate pulmonary artery opacification. Normal caliber main pulmonary artery. No evidence of acute pulmonary embolism as visualized. Respiratory motion obscures evaluation of the distal pulmonary branches. Aorta: No acute findings. No thoracic aortic aneurysm or dissection. Lungs: Unremarkable. No airspace consolidation or pulmonary parenchymal mass. Pleural space: Unremarkable. No pleural effusion or pneumothorax. Heart: Unremarkable. No cardiomegaly or coronary artery atherosclerosis. No significant RV strain. No pericardial effusion. Mediastinum: Esophageal wall thickening. Bones/joints: No acute fracture or dislocation. Soft tissues: Unremarkable. Lymph nodes: Unremarkable. No adenopathy. Gallbladder and bile ducts: Cholecystectomy. IMPRESSION: 1. No evidence of acute pulmonary embolism as visualized. Respiratory motion obscures the distal pulmonary artery branches. 2. Esophageal wall thickening suggesting esophagitis. Electronically signed by: Jorge Vieira M.D. 07/30/23 02:22 AM MDM Narrative Prior records/ancillary studies reviewed. Triage Nursing notes reviewed. Additional history obtained from nursing. The patient's history was concerning for abdominal pain with nausea and vomiting and sudden onset of shortness of breath. Differential diagnosis: Etiologies such as perforation, pulmonary, cardiac, appendicitis, diverticulitis, PUD, biliary pathology, UTI, pancreatitis, obstruction, mesenteric ischemia, aortic pathology, infections, inflammatory bowel disease, renal colic, as well as others were entertained. Physical examination findings: As above. ER treatment provided: An order was placed for continuous cardiac monitoring. The monitor shows a rate of 60-1 50 with a sinus rhythm per my Independent interpretation. I-STAT was ordered and patient was emergently sent down for CAT scan IV fluids, morphine, Zofran, Pepcid and Protonix were ordered On reassessment the patient felt better. Diagnostics interpreted by me: ECG: Ordered for dyspnea EKG: Poor baseline, normal sinus, normal's, no acute ST-T wave changes. Impression sinus tachycardia independent interpreted by myself The labs Independently Interpreted by myself revealed hyperglycemia with concerns for DKA on a patient who is on Jardiance VBG with pH is 7 Negative troponin Coronavirus Imaging studies: Chest x-ray with no acute consolidation, pneumothorax or free air per my independent interpretation CTs of the chest abdomen pelvis were reviewed by myself and read by radiology Consultation: A consultation was placed with the hospitalist. The case was discussed and diagnostics were reviewed. The patient was evaluated in the ER for further treatment. Consultation was placed with pharmacyLatrell and the DKA order set was reviewed as patient has DKA with being on Jardiance. We will use the LR with dextrose as patient will most likely need dextrose. Exam and history seem consistent with DKA most likely from his Jardiance and having the coronavirus. Patient was positive for coronavirus on [employer]. He started off with nausea vomiting and some diarrhea past 2 days that led to acute onset of dyspnea. Scans are negative. Patient had an anion gap and VBG was ordered that showed a pH of 7. Patient most likely has a euglycemic DKA from his Jardiance and his metformin was likely caused from a GI bug from the coronavirus. Patient was feeling much better after being hydrated as above. He was reassessed multiple times. Medicine and pharmacy were consulted. Patient will be admitted to the medical service. By the evaluation outlined above emergent etiologies such as appendicitis, diverticulitis, PUD, biliary pathology, UTI, pancreatitis, obstruction, mesenteric ischemia, aortic pathology, inflammatory bowel disease, renal colic, as well as others were deemed relatively unlikely. The pt informed about the findings as listed above. All questions were answered and pleased with the treatment. The chart was completed utilizing [employer] Speech voice recognition software. Grammatical errors, random word insertions, pronoun errors, and incomplete sentences are an occassional consequence of this system due to software limitations, ambient noise, and hardware issues. Any formal questions or concerns about the content, text, or information contained within the body of this dictation should be directly addressed to the physician assistant scientist for clarification. Impression & Plan DKA, type 2, Coronavirus infection, Nausea & vomiting Discharge Plan Visit Data Chief Complaint: Illness ED Provider: Charlee Washburn ED Midlevel Provider: Carmen Katz Discharge Problem: DKA, type 2, Coronavirus infection, Nausea & vomiting Patient Disposition: Admitted As Inpatient Condition: Fair Discharge Instructions Interventions: ED Discharge Assessment Last Done: 07/30/23 06:32 Discharge Problem: DKA, type 2 Qualifiers: Diabetes mellitus complication detail: without coma Qualified Code(s): E11.10 - Type 2 diabetes mellitus with ketoacidosis without coma
[2023-07-30] MEDS ORDERED: OPTIRAY 320 125ml IV ONE (01:32)
[2023-07-30] MEDS: SODIUM CHLORIDE 0.9% 1,000 ML IV SCH ×2 (01:39→03:01)
[2023-07-30 02:09] LABS: Albumin Level 4.5 gm/dl (3.4-5.0); BUN Creatinine Ratio 21.4 (10-20); Bilirubin Direct 0.1 mg/dl (0-0.2); Bilirubin,Total 0.4 mg/dl (0.2-1.0); Calcium 8.5 mg/dl (8.6-10.3); Creatinine Clr Calc Pharmacy 73.4 ml/min; Est GFR (Non-African American) 64.7 ml/min; Magnesium 2.1 mg/dl (1.7-2.4); Potassium 5.1 mmol/L (3.5-5.1); Troponin I High Sensitivity 6.4 pg/ml (0-20)
--- NOTE | 2023-07-30 02:14 | CT Scan Report ---
Exam(s): CT ABDOMEN + PELVIS With Contrast IV Amt: 116 ml optiray 320 EXAM: CT Abdomen and Pelvis With Intravenous Contrast CLINICAL HISTORY: Reason for exam: severe pain, sob. TECHNIQUE: Axial computed tomography images of the abdomen and pelvis with intravenous contrast. CTDI is 28.14 mGy and DLP is 2367.07 mGy-cm. Automated exposure control was utilized for the study. A dose lowering technique was utilized adhering to the principles of ALARA. CONTRAST: Patient received 116 ml optiray 320 of IV contrast COMPARISON: CT abdomen and pelvis 10/28/18 FINDINGS: Limitations: Motion artifact. Lung bases: Clear lung bases. No consolidation. ABDOMEN: Liver: Calcified granuloma right hepatic lobe. Gallbladder and bile ducts: Cholecystectomy. No ductal dilation. Pancreas: Unremarkable. No mass. No ductal dilation. Spleen: Unremarkable. No splenomegaly. Adrenals: Unremarkable. No mass. Kidneys and ureters: Unremarkable. No solid mass. No hydronephrosis. Stomach and bowel: Unremarkable. No mucosal thickening. No bowel obstruction. Scattered colonic diverticula. PELVIS: Appendix: Normal appendix. Bladder: Unremarkable. No mass. Reproductive: Unremarkable as visualized. ABDOMEN and PELVIS: Intraperitoneal space: Unremarkable. No free air. No significant fluid collection. Bones/joints: No acute fracture or dislocation. Soft tissues: Fat-containing inguinal hernias. Vasculature: Unremarkable. No abdominal aortic aneurysm. Lymph nodes: Unremarkable. No enlarged lymph nodes. IMPRESSION: No acute findings in the abdomen or pelvis. Electronically signed by: Jorge Vieira M.D. 07/30/23 02:14 AM
--- NOTE | 2023-07-30 02:22 | CT Scan Report ---
Exam(s): CTA CHEST IV Amt: 116 ml optiray 320 EXAM: CT Angiography Chest With Intravenous Contrast CLINICAL HISTORY: Reason for exam: PE. TECHNIQUE: Axial computed tomographic angiography images of the chest with intravenous contrast. CTDI is 28.14 mGy and DLP is 2367.07 mGy-cm. Automated exposure control was utilized for the study. A dose lowering technique was utilized adhering to the principles of ALARA. MIP reconstructed images were created and reviewed. COMPARISON: No relevant prior studies available. FINDINGS: Pulmonary arteries: Adequate pulmonary artery opacification. Normal caliber main pulmonary artery. No evidence of acute pulmonary embolism as visualized. Respiratory motion obscures evaluation of the distal pulmonary branches. Aorta: No acute findings. No thoracic aortic aneurysm or dissection. Lungs: Unremarkable. No airspace consolidation or pulmonary parenchymal mass. Pleural space: Unremarkable. No pleural effusion or pneumothorax. Heart: Unremarkable. No cardiomegaly or coronary artery atherosclerosis. No significant RV strain. No pericardial effusion. Mediastinum: Esophageal wall thickening. Bones/joints: No acute fracture or dislocation. Soft tissues: Unremarkable. Lymph nodes: Unremarkable. No adenopathy. Gallbladder and bile ducts: Cholecystectomy. IMPRESSION: 1. No evidence of acute pulmonary embolism as visualized. Respiratory motion obscures the distal pulmonary artery branches. 2. Esophageal wall thickening suggesting esophagitis. Electronically signed by: Jorge Vieira M.D. 07/30/23 02:22 AM
[2023-07-30] MEDS ORDERED: PANTOprazole 40 MG in SYRINGE 0 ML IV ONE (02:31)
[2023-07-30 02:32] LABS: Basophils % (auto) 0.5 %; Eosinophils # (auto) 0.01 K/uL (0.00-0.50); Eosinophils % (auto) 0.1 %; Hematocrit (blood only) 55.3 % (42.0-52.0); Hemoglobin 17.4 g/dl (14.0-18.0); Immature Granulocytes # (auto) 0.36 K/uL (0.01-0.20); Lymphocytes # (auto) 1.36 K/uL (1.20-3.40); Lymphocytes % (auto) 7.4 %; Mean Corpuscular Hemoglobin 29.3 pg (25.0-34.0); Mean Corpuscular Hgb Conc 31.5 g/dL (32.0-36.0); Mean Corpuscular Volume 93.3 fL (80.0-100.0); Mean Platelet Volume 9.7 fL (9.4-12.4); Monocytes # (auto) 0.99 K/uL (0.11-0.59); Monocytes % (auto) 5.4 %; Neutrophils # (auto) 15.47 K/uL (1.40-6.50); Neutrophils % (auto) 84.6 %; Platelet Count 379 K/uL (130-400); RDW Coefficient of Variation 14.2 % (11.5-14.5); RDW Standard Deviation 48.8 fL (36.4-46.3); Red Blood Count 5.93 M/uL (4.70-6.10); White Blood Count 18.29 K/ul (4.8-10.8)
[2023-07-30 02:34] LABS: Adenovirus PCR Not Detected (NotDetected); Bordetella parapertussis PCR Not Detected (NotDetected); Bordetella pertussis PCR Not Detected (NotDetected); Chlamydia pneumoniae PCR Not Detected (NotDetected); Coronavirus 229E PCR Not Detected (NotDetected); Coronavirus CoV-2 (COVID19)PCR Not Detected (NotDetected); Coronavirus NL63 PCR Not Detected (NotDetected); Coronavirus OC43PCR Not Detected (NotDetected); Human Metapneumovirus PCR Not Detected (NotDetected); Influenza A PCR Not Detected (NotDetected); Influenza B PCR Not Detected (NotDetected); Mycoplasma pneumoniae PCR Not Detected (NotDetected); Parainfluenza Virus 1 PCR Not Detected (NotDetected); Parainfluenza Virus 2 PCR Not Detected (NotDetected); Parainfluenza Virus 3 PCR Not Detected (NotDetected); Parainfluenza Virus 4 PCR Not Detected (NotDetected); Respiratory Syncytial VirusPCR Not Detected (NotDetected); Rhinovirus/Enterovirus PCR Not Detected (NotDetected)
[2023-07-30 02:35] LABS: Base Excess VBG -23.7 mEq/L; HCO3 VBG 6 mmol/L; Oxygen Saturation VBG < 60.0 %; PCO2 VBG 24 mmHg (38-50); PO2 VBG 32 mmHg; pH VBG 7.01 (7.36-7.41)
[2023-07-30] MEDS ORDERED: LACTATED RINGER'S 1,000 ML IV ONE (02:40)
[2023-07-30] MEDS ORDERED: PHARMACY GLYCEMIC MGMT CONSULT PRN (02:51)
[2023-07-30] MEDS ORDERED: STAT IV Infusion **Titration per Protocol STA (02:51)
[2023-07-30] MEDS ORDERED: PLASMA-LYTE A 1,000 ML IV SCH (03:00)
[2023-07-30 03:07] LABS: Acetaminophen < 3 ug/ml (10-30); Salicylate < 3.0 mg/dl (3.0-30)
[2023-07-30 03:10] LABS: Coronavirus HKU1 PCR DETECTED (NotDetected)
[2023-07-30 03:25] LABS: Appearance Urine Clear (Clear); Bacteria Urine Automated Negative (Negative); Bilirubin Urine Negative (Negative); Blood Urine Trace (Negative); Color Urine Yellow; Glucose Urine UA 3+ (Negative); Ketones Urine 4+ (Negative); Leukocyte Esterase Urine Negative (Negative); Nitrite Urine Negative (Negative); Protein Urine 1+ (Negative); RBC Urine Automated 0-4 /hpf (0-4); Specific Gravity Urine 1.041 (1.000-1.030); Urobilinogen Urine Negative (Negative)
--- NOTE | 2023-07-30 03:32 | History & Physical Report ---
Date of Service July 30, 2023 Assessment & Plan (1) DKA (diabetic ketoacidosis): (2) Nausea & vomiting: (3) Coronavirus infection: (4) Esophagitis: Plan Pt is a 53yoM with PMHx significant for DMII with neuropathy, HLD, HTN admitted with euglycemic DKA in the setting of a coronavirus infection. Intractable N/V Euglycemic DKA DMII Pt with episodes of N/V at home Glucose of 289 on admission VBG with pH of 7.01, CO2 of 24, anion gap of 30 Lactate of 3.0, wnl after fluid resuscitation blood Cx x 2 pending, ordered by ED On Insulin drip with IVF, glycemic consult Hold home metformin, Jardiance and insulin Q4 BMP and VBG Coronovirus Infection Biofire positive for coronavirus infection Chest XRAY read pending Chest CTA notable only for esophagitis No increased oxygen requirement Supportive care Tachycardia Pt tachycardic on admission EKG with noted sinus tachycardia Chest CTA PE protocol with no noted PE Likely in setting of DKA and coronavirus infection Consider echo, lopressor Anticipate resolution as other acute issues resolve Continue to monitor Esophagitis Noted on Chest CTA Started on pantoprazole 40mg Outpt followup Continue other home meds CODE STATUS: Full code DVT prophylaxis: Lovenox SQ Diet: currently NPO as pt cannot tolerate food Dispo: PCU/tele History of Present Illness Chief Complaint: SOB Primary Care Provider: Ludin Solis MD Pt is a 53yoM with PMHx significant for DMII with neuropathy, HLD, HTN admitted with euglycemic DKA in the setting of a coronavirus infection. Pt states that he has been having intractable N/V for the last few days, has not been able to keep anything down. Today symptoms progressed to not being able to breathe. Not currently requiring oxygen. States he has chronic diarrhea in setting of IBS. Also reports occasional dysuria but states that it is from use of Jardiance. Otherwise denies acute concerns. Started on IV fluids and insulin drip in the ED. Also received zofran. Allergies Allergy/AdvReac Type Severity Reaction Status Date / Time cat dander Allergy Sneezing Verified 07/30/23 01:32 Home Medications Medication Instructions Recorded Confirmed Type aspirin 81 mg tablet,delayed 81 mg PO DAILY 10/28/18 07/30/23 History release atorvastatin 40 mg tablet 40 mg PO QAM 10/28/18 07/30/23 History metoprolol tartrate 50 mg tablet 50 mg PO AMHS 10/28/18 07/30/23 History empagliflozin 25 mg tablet 25 mg PO QAM 07/30/23 07/30/23 History (Jardiance) gabapentin 300 mg capsule 300 mg PO TID 07/30/23 07/30/23 History insulin glargine 100 unit/mL (3 30 unit subcut QA 07/30/23 07/30/23 History mL) subcutaneous pen (Basaglar KwikPen U-100 Insulin) lisinopril 20 mg tablet 20 mg PO QAM 07/30/23 07/30/23 History metformin 500 mg tablet,extended 1,000 mg PO AMHS 07/30/23 07/30/23 History release 24 hr Past Med/Surg History Medical History Ureteral calculus Hypertension Diabetes Social History Smoking Status: Former smoker Preferred Language: Greek Feels Safe at Home: Yes Review of Systems Review of Systems: All systems reviewed & are unremarkable except as noted in HPI & below Physical Exam Physical Exam: General: Alert, oriented. No acute distress, sitting up in bed Skin: No noted rashes or bruises Psych: Appropriate mood and affect Neuro: No gross deficits HEENT: NC/AT CV: RRR Resp: Breath sounds clear bilaterally, no increased effort of breathing. Abdomen: Soft, nontender, nondistended Extremities: No edema in lower extremities bilaterally. Results & Data Results & Data Vital Signs (Past 12 Hours) Vital Signs Temp Pulse Pulse Resp BP Pulse Ox O2 Del Method 07/30/23 01:21 126 H 33 H 167/89 H 97 Room Air 07/30/23 01:01 134 H 07/30/23 00:49 37.5 C 138 H 23 96 Room Air
[2023-07-30 03:50] LABS: Amphetamines+Metham, Urine Neg (Neg); Barbiturates, Urine Neg (Neg); Benzodiazepine, Urine Neg (Neg); Cocaine, Urine Neg (Neg); MDMA (Ecstacy), Urine Neg (Neg); Marijuana, Urine Neg (Neg); Methadone, Urine Neg (Neg); Opiate, Urine Pos (Neg); Phencyclidine, Urine Neg (Neg)
[2023-07-30] MEDS: D5W AND LACTATED RINGERS 1,000 ML IV SCH ×3 (03:54→23:42)
[2023-07-30] MEDS: INSULIN REGULAR 250 UNITS in SODIUM CHLORIDE 0.9% 247.5 ML IV SCH (04:01)
[2023-07-30 04:13] LABS: BUN Creatinine Ratio 23.6 (10-20); Blood Urea Nitrogen 25 mg/dl (6-23); Calcium 8.1 mg/dl (8.6-10.3); Carbon Dioxide 6 mmol/L (21-32); Chloride 103 mmol/L (98-107); Creatinine Clr Calc Pharmacy 87.2 ml/min; Est GFR (African American) 92.4 ml/min; Est GFR (Non-African American) 79.7 ml/min; Glucose 254 mg/dl (70-99(Fasting))
[2023-07-30] MEDS ORDERED: ONDANSETRON INJ 2 MG/ML 2 ML VIAL IV PRN (06:32)
[2023-07-30] MEDS ORDERED: DEXTROSE 50% 50 ML SYRINGE IV PRN (06:45)
[2023-07-30] MEDS ORDERED: GLUCAGON FOR INJ 1 MG VIAL IM PRN (06:45)
[2023-07-30] MEDS ORDERED: CARBOHYDRATES FOR HYPOGLYCEMIA PO PRN (06:45)
[2023-07-30] MEDS ORDERED: GLUCOSE 10 TAB/TUBE PO PRN (06:45)
[2023-07-30] MEDS ORDERED: GLUCOSE 40% GEL 15 GM TUBE PO PRN (06:45)
[2023-07-30 07:07] LABS: iSTAT Creatinine 0.9 mg/dl (0.6-1.3); iSTAT Hemoglobin 18.7 g/dl (14.0-18.0); iSTAT Ionized Calcium 1.2 mmol/l (1.12-1.32); iSTAT Potassium 5.1 mmol/L (3.3-5.0)
[2023-07-30 08:54] LABS: Hematocrit (blood only) 48.4 % (42.0-52.0); Hemoglobin 15.9 g/dl (14.0-18.0); Mean Corpuscular Hemoglobin 29.7 pg (25.0-34.0); Mean Corpuscular Hgb Conc 32.9 g/dL (32.0-36.0); Mean Corpuscular Volume 90.3 fL (80.0-100.0); Mean Platelet Volume 9.2 fL (9.4-12.4); Platelet Count 269 K/uL (130-400); RDW Coefficient of Variation 14.4 % (11.5-14.5); Red Blood Count 5.36 M/uL (4.70-6.10)
[2023-07-30] MEDS ORDERED: lisinopril 20 MG TAB PO SCH (09:00)
--- NOTE | 2023-07-30 09:11 | XRay Report ---
XR chest 1V portable CLINICAL HISTORY: Sepsis. COMPARISON STUDY: No previous studies for comparison. FINDINGS: Lung volumes are normal. Lungs are clear. There is no pneumothorax or pleural effusion. Car diac size is normal. Mediastinal contours are normal. There is no evidence for pulmonary edema. IMPRESSION: No acute cardiopulmonary findings. ACT 112: Negative or not required by law. Electronically signed by: Joseph Muñoz M.D. 07/30/2023 9:09 AM
[2023-07-30 09:46] LABS: BUN Creatinine Ratio 22.7 (10-20); Creatinine Clr Calc Pharmacy 95.3 ml/min; Est GFR (African American) 102.9 ml/min; Est GFR (Non-African American) 88.8 ml/min; Phosphorus 2.4 mg/dl (2.5-4.9); Potassium 4.9 mmol/L (3.5-5.1)
[2023-07-30] MEDS: INSULIN ASPART PER UNIT CHARGE SC SCH ×4 (09:51→20:33)
[2023-07-30 11:30] LABS: BUN Creatinine Ratio 20.8 (10-20); Calcium 8.1 mg/dl (8.6-10.3); Creatinine Clr Calc Pharmacy 96.3 ml/min; Est GFR (African American) 104.2 ml/min; Est GFR (Non-African American) 89.9 ml/min; Phosphorus 2.2 mg/dl (2.5-4.9); Potassium 4.9 mmol/L (3.5-5.1)
[2023-07-30] MEDS: ATORVASTATIN 40 MG TAB PO SCH (12:11)
[2023-07-30] MEDS: ASPIRIN 81 MG ECTAB PO SCH (12:11)
[2023-07-30] MEDS: PANTOprazole 40 MG TAB PO SCH ×2 (12:11→20:04)
[2023-07-30] MEDS: METOPROLOL TARTRATE 50 MG TAB PO SCH ×2 (12:11→20:03)
[2023-07-30] MEDS: GABAPENTIN 300 MG CAP PO SCH ×3 (12:11→20:03)
[2023-07-30] MEDS: ENOXAPARIN INJ 40 MG/0.4 ML SYR SQ SCH (12:11)
[2023-07-30] MEDS: POT PHOSPHATE MONOBASIC W/ SOD TAB PO SCH ×3 (13:06→20:03)
--- NOTE | 2023-07-30 14:23 | Electrocardiogram Report ---
Test Reason : Blood Pressure : / mmHG Vent. Rate : 130 BPM Atrial Rate : 130 BPM P-R Int : 166 ms QRS Dur : 084 ms QT Int : 318 ms P-R-T Axes : -16 -21 032 degrees QTc Int : 467 ms Poor data quality, interpretation may be adversely affected Sinus tachycardia Otherwise normal ECG When compared with ECG of 24-MAR-2011 15:52, No significant change was found Confirmed by Fabio Apple ([id number]) on 07/30/2023 2:23:36 PM Referred By: REFERRED SELF Confirmed By:Fabio Apple
--- NOTE | 2023-07-30 14:29 | Pharmacy Report ---
Pharmacy Glycemic Short Note 2 - Date of Service July 30, 2023 - Glycemic Short BSG Results (Last 24 hours): 07/30/23 07/30/23 07/30/23 01:14 01:19 03:31 Glucose 289 H 254 H POC Glucose POC Glucose (other) 291 H 07/30/23 07/30/23 07/30/23 04:59 06:15 07:47 Glucose POC Glucose 228 H 202 H 150 H POC Glucose (other) 07/30/23 07/30/23 07/30/23 08:34 09:45 10:56 Glucose 156 H POC Glucose 142 H 136 H POC Glucose (other) 07/30/23 07/30/23 07/30/23 10:59 12:07 12:09 Glucose 150 H POC Glucose 160 H 157 H POC Glucose (other) 07/30/23 13:19 Glucose POC Glucose 171 H POC Glucose (other) OUTPATIENT ANTIDIABETIC REGIMEN: * Basaglar 30 units SC qAM * Metformin 1000 mg PO BID * Jardiance 25 mg PO daily HbA1c ordered/pending for 07/31/23 ASSESSMENT: * BS is a 53 year old male with T2DM who presented to ED with persistent N&V w/ abdominal pain and development of shortness of breath * Found to be in DKA w/ serum bicarbonate of 4 mmol/L, anion gap of 30, and venous blood gas pH of 7.01 * Insulin infusion and IV fluids initiated, currently receiving D5W/LR @125 mL/hr * DKA improving, but anion gap still elevated (15) and serum bicarbonate still low at 10 mmol/L on last set of labs PLAN FOR INPATIENT GLYCEMIC CONTROL: * Hold outpatient oral diabetes medications * IV insulin infusion per protocol * Will plan to transition to SC basal/bolus regimen once anion gap closes and diet to be advanced
[2023-07-30 15:05] LABS: BUN Creatinine Ratio 20.5 (10-20); Est GFR (African American) 113.7 ml/min; Est GFR (Non-African American) 98.1 ml/min; Magnesium 1.9 mg/dl (1.7-2.4); Phosphorus 2.2 mg/dl (2.5-4.9); Potassium 4.6 mmol/L (3.5-5.1)
[2023-07-30] MEDS ORDERED: SODIUM CHLORIDE 0.9% 500 ML IV ONE (16:21)
--- NOTE | 2023-07-30 16:22 | Hospitalist Progress Note ---
Date of Service July 30, 2023 Assessment & Plan (1) DKA (diabetic ketoacidosis): (2) Nausea & vomiting: (3) Coronavirus infection: (4) Esophagitis: Plan Pt is a 53yoM with PMHx significant for DMII with neuropathy, HLD, HTN admitted with euglycemic DKA in the setting of a coronavirus infection. DKA Intractable N/V due to above HAGMA H/O DM II HbA1c pending Lactic acid normalized with IV fluids Blood cultures pending Continue Insulin drip Continue IV fluids Repeat electrolytes as needed Appreciate glycemic pharmacist help Home p.o. meds for diabetes on hold Coronavirus Infection Biofire positive for coronavirus infection Chest X ray:No acute cardiopulmonary findings. Conservative management Saturating well on room air Esophagitis Intermittently uses omeprazole at home Started on Protonix Advised to follow-up with GI as outpatient Other chronic conditions Hyperlipidemia Hypertension Hold lisinopril due to low BP Continue statin DVT Px: Lovenox SQ CODE STATUS: Full code Admission and Anticipated Discharge Date Admission Date: July 30, 2023 Subjective Patient is seen and examined at bedside States having nausea Also reports dry cough Abdominal pain resolved Denies any chest pain, dizziness No other complaints Review of Systems Review of Systems: All systems reviewed & are unremarkable except as noted in Subjective Physical Exam Physical Exam: Physical Exam: Vitals signs as noted above General Appearance:Moderately built and nourished, no apparent distress Head: normocephalic, Atraumatic Eyes: normal inspection, EOMI Neck: supple, Trachea midline Respiratory/Chest: Normal breath sounds, CTA, No accessory muscle use Cardiovascular: S1, S2, No murmur Abdomen/GI:Soft, Non tender, Bowel sounds present Extremities/Musculoskeletal:normal inspection, no edema Neurologic/Psych:AAOX3, grossly no focal neurological deficits Skin: normal color, warm Results & Data Results & Data Vital Signs (Past 12 Hours) Vital Signs Temp Pulse Pulse Resp BP BP Pulse Ox 07/30/23 15:21 37 C 82 22 95/53 L 98 07/30/23 12:37 87 18 121/68 100 07/30/23 09:58 07/30/23 07:02 114 H 07/30/23 06:00 111 H 23 151/84 H 100 07/30/23 05:12 123 H 07/30/23 05:00 123 H 24 135/85 94 Pulse Ox O2 Del Method O2 Del Method 07/30/23 15:21 Room Air 07/30/23 12:37 Room Air 07/30/23 09:58 97 Room Air 07/30/23 07:02 07/30/23 06:00 Room Air 07/30/23 05:12 07/30/23 05:00 Room Air Laboratory Results Short CBC 07/30/23 07/30/23 Range/Units 01:14 08:34 WBC 18.29 H 15.20 H (4.8-10.8) K/ul Hgb 17.4 15.9 (14.0-18.0) g/dl Hct 55.3 H 48.4 (42.0-52.0) % Plt Count 379 269 (130-400) K/uL BMP 07/30/23 07/30/23 07/30/23 01:14 03:31 08:34 Sodium 133 L TNP 134 L Potassium 5.1 TNP 4.9 Chloride 99 103 108 H Carbon Dioxide 4 L* 6 L* 8 L* BUN 27 H 25 H 22 Creatinine 1.26 1.06 0.97 Glucose 289 H 254 H 156 H Calcium 8.5 L 8.1 L 8.0 L 07/30/23 07/30/23 10:59 14:36 Sodium 134 L 133 L Potassium 4.9 4.6 Chloride 109 H 108 H Carbon Dioxide 10 L 13 L BUN 20 18 Creatinine 0.96 0.88 Glucose 150 H 171 H Calcium 8.1 L 8.0 L Liver Function 07/30/23 Range/Units 01:14 Total Bilirubin 0.4 (0.2-1.0) mg/dl Direct Bilirubin 0.1 (0-0.2) mg/dl AST 18 (13-39) U/L ALT 31 (7-52) U/L Alkaline Phosphatase 105 H (34-104) U/L Albumin 4.5 (3.4-5.0) gm/dl Urine 07/30/23 Range/Units 02:58 Urine Color Yellow Urine Appearance Clear (Clear) Urine pH 5.0 (4.5-7.5) Ur Specific [place] 1.041 H (1.000-1.030) Urine Protein 1+ H (Negative) Urine Glucose (UA) 3+ H (Negative)
[2023-07-30 20:14] LABS: Calcium 8.4 mg/dl (8.6-10.3); Magnesium 1.9 mg/dl (1.7-2.4); Potassium 4.4 mmol/L (3.5-5.1)
[2023-07-30 20:19] LABS: BUN Creatinine Ratio 20.5 (10-20); Creatinine Clr Calc Pharmacy 111.4 ml/min; Est GFR (African American) 116.4 ml/min; Est GFR (Non-African American) 100.5 ml/min; Phosphorus 2.4 mg/dl (2.5-4.9)
[2023-07-31 00:16] LABS: BUN Creatinine Ratio 18.3 (10-20); Calcium 8.1 mg/dl (8.6-10.3); Creatinine Clr Calc Pharmacy 112.7 ml/min; Magnesium 1.8 mg/dl (1.7-2.4); Phosphorus 2.2 mg/dl (2.5-4.9)
[2023-07-31 06:39] LABS: Hematocrit (blood only) 41.6 % (42.0-52.0); Hemoglobin 13.8 g/dl (14.0-18.0); Mean Corpuscular Hemoglobin 29.6 pg (25.0-34.0); Mean Corpuscular Hgb Conc 33.2 g/dL (32.0-36.0); Mean Corpuscular Volume 89.1 fL (80.0-100.0); Mean Platelet Volume 9.2 fL (9.4-12.4); Platelet Count 174 K/uL (130-400); RDW Coefficient of Variation 14.5 % (11.5-14.5); RDW Standard Deviation 47.1 fL (36.4-46.3); Red Blood Count 4.67 M/uL (4.70-6.10); White Blood Count 6.68 K/ul (4.8-10.8)
[2023-07-31 07:37] LABS: Estimated Average Glucose 229 mg/dl; Hemoglobin A1C 9.6 % (4.5-5.6)
[2023-07-31] MEDS: INSULIN ASPART PER UNIT CHARGE SC SCH ×6 (08:05→23:23)
[2023-07-31] MEDS ORDERED: LANTUS PER UNIT CHARGE SC SCH (09:00)
[2023-07-31] MEDS: D5W AND LACTATED RINGERS 1,000 ML IV SCH ×3 (09:01→17:25)
[2023-07-31 09:29] LABS: BUN Creatinine Ratio 16.9 (10-20); Calcium 7.8 mg/dl (8.6-10.3); Creatinine Clr Calc Pharmacy 143.1 ml/min; Est GFR (African American) 124.2 ml/min; Est GFR (Non-African American) 107.1 ml/min; Potassium 3.6 mmol/L (3.5-5.1)
[2023-07-31] MEDS: ENOXAPARIN INJ 40 MG/0.4 ML SYR SQ SCH (09:51)
[2023-07-31 11:12] LABS: BUN Creatinine Ratio 15.1 (10-20); Creatinine Clr Calc Pharmacy 139.2 ml/min; Est GFR (African American) 122.7 ml/min; Est GFR (Non-African American) 105.9 ml/min; Potassium 3.6 mmol/L (3.5-5.1)
[2023-07-31] MEDS: METOPROLOL TARTRATE 50 MG TAB PO SCH ×2 (13:02→20:35)
[2023-07-31] MEDS: POT PHOSPHATE MONOBASIC W/ SOD TAB PO SCH (13:02)
[2023-07-31] MEDS: PANTOprazole 40 MG TAB PO SCH ×2 (13:03→20:35)
[2023-07-31] MEDS: GABAPENTIN 300 MG CAP PO SCH ×3 (13:03→20:35)
[2023-07-31] MEDS: ATORVASTATIN 40 MG TAB PO SCH (13:03)
[2023-07-31] MEDS: ASPIRIN 81 MG ECTAB PO SCH (13:04)
[2023-07-31] MEDS: INSULIN REGULAR 250 UNITS in SODIUM CHLORIDE 0.9% 247.5 ML IV SCH (13:08)
--- NOTE | 2023-07-31 13:30 | Pharmacy Report ---
Pharmacy Glycemic Short Note 2 - Date of Service July 31, 2023 - Glycemic Short BSG Results (Last 24 hours): 07/30/23 07/30/23 07/30/23 14:36 14:38 15:47 Glucose 171 H POC Glucose 175 H 149 H 07/30/23 07/30/23 07/30/23 16:56 17:57 19:00 Glucose POC Glucose 151 H 143 H 119 H 07/30/23 07/30/23 07/30/23 19:27 19:44 19:46 Glucose 139 H POC Glucose 135 H 140 H 07/30/23 07/30/23 07/30/23 20:01 20:28 21:09 Glucose POC Glucose 149 H 164 H 173 H 07/30/23 07/30/23 07/30/23 22:03 23:02 23:47 Glucose 183 H POC Glucose 178 H 175 H 07/30/23 07/31/23 07/31/23 23:58 01:07 02:09 Glucose POC Glucose 171 H 154 H 153 H 07/31/23 07/31/23 07/31/23 03:00 04:13 05:00 Glucose POC Glucose 187 H 157 H 143 H 07/31/23 07/31/23 07/31/23 06:06 06:17 07:14 Glucose 321 H* POC Glucose 165 H 171 H 07/31/23 07/31/23 07/31/23 08:19 09:18 10:27 Glucose POC Glucose 169 H 161 H 187 H 07/31/23 07/31/23 07/31/23 10:29 11:57 12:59 Glucose 173 H POC Glucose 178 H 183 H OUTPATIENT ANTIDIABETIC REGIMEN: * Basaglar 30 units SC qAM * Metformin 1000 mg PO BID * Jardiance 25 mg PO daily HbA1c ordered/pending for 07/31/23 ASSESSMENT: 07/31: * Patient continues on insulin drip running at a low rate of 1 ml/hr. Anion gap of 11 last night but this AM it was elevated at 13. Bicarb low at 14. * Plan to transition off the insulin drip this afternoon after new set of labs ordered for 2 pm results. * Patient was given 30 units of basal insulin this morning to try to transition off the insulin drip. * IV fluids running at 125 ml/hr. He is currently still NPO. * Spoke with hospitalist, plan on getting labs this afternoon to decide on when to transition off of the drip. 07/30/23: * BS is a 53 year old male with T2DM who presented to ED with persistent N&V w/ abdominal pain and development of shortness of breath * Found to be in DKA w/ serum bicarbonate of 4 mmol/L, anion gap of 30, and venous blood gas pH of 7.01 * Insulin infusion and IV fluids initiated, currently receiving D5W/LR @125 mL/hr * DKA improving, but anion gap still elevated (15) and serum bicarbonate still low at 10 mmol/L on last set of labs PLAN FOR INPATIENT GLYCEMIC CONTROL: * Hold outpatient oral diabetes medications * Lantus 30 units SC x1 dose given this AM. * IV insulin infusion per protocol * Will plan to transition to SC basal/bolus regimen once anion gap closes and diet to be advanced
[2023-07-31 16:00] LABS: Potassium 3.6 mmol/L (3.5-5.1)
[2023-07-31 16:06] LABS: BUN Creatinine Ratio 14.3 (10-20); Creatinine Clr Calc Pharmacy 145.2 ml/min; Est GFR (African American) 124.9 ml/min; Est GFR (Non-African American) 107.7 ml/min
--- NOTE | 2023-07-31 16:22 | Hospitalist Progress Note ---
Date of Service July 31, 2023 Assessment & Plan (1) DKA (diabetic ketoacidosis): (2) Nausea & vomiting: (3) Coronavirus infection: (4) Esophagitis: Plan Pt is a 53yoM with PMHx significant for DMII with neuropathy, HLD, HTN admitted with euglycemic DKA in the setting of a coronavirus infection. DKA Intractable N/V due to above HAGMA H/O DM II HbA1c 9.6 Lactic acid normalized with IV fluids Blood cultures: Negative to date Continue Insulin drip>> transition to SQ insulin per protocol Continue IV fluids Repeat electrolytes as needed Appreciate glycemic pharmacist help Home p.o. meds for diabetes on hold software educator consulted Coronavirus Infection Biofire positive for coronavirus infection Chest X ray:No acute cardiopulmonary findings. Conservative management Saturating well on room air Esophagitis Intermittently uses omeprazole at home Started on Protonix Advised to follow-up with GI as outpatient Other chronic conditions Hyperlipidemia Hypertension Hold lisinopril due to low BP Continue statin DVT Px: Lovenox SQ CODE STATUS: Full code Admission and Anticipated Discharge Date Admission Date: July 30, 2023 Subjective Patient is seen and examined at bedside States feeling a lot better today Denies any mild cough but otherwise no complaints Nausea resolved Denies any chest pain, dizziness, abdominal pain Review of Systems Review of Systems: All systems reviewed & are unremarkable except as noted in Subjective Physical Exam Physical Exam: Physical Exam: Vitals signs as noted above General Appearance:Moderately built and nourished, no apparent distress Head: normocephalic, Atraumatic Eyes: normal inspection, EOMI Neck: supple, Trachea midline Respiratory/Chest: Normal breath sounds, CTA, No accessory muscle use Cardiovascular: S1, S2, No murmur Abdomen/GI:Soft, Non tender, Bowel sounds present Extremities/Musculoskeletal:normal inspection, no edema Neurologic/Psych:AAOX3, grossly no focal neurological deficits Skin: normal color, warm Results & Data Results & Data Vital Signs (Past 12 Hours) Vital Signs Temp Pulse Pulse Resp BP Pulse Ox O2 Del Method 07/31/23 12:34 36.5 C 79 18 124/70 99 Room Air 07/31/23 08:22 36.5 C 84 17 114/63 99 Room Air 07/31/23 07:00 81 Laboratory Results Short CBC 07/31/23 Range/Units 06:03 WBC 6.68 (4.8-10.8) K/ul Hgb 13.8 L (14.0-18.0) g/dl Hct 41.6 L (42.0-52.0) % Plt Count 174 (130-400) K/uL BMP 07/30/23 07/30/23 07/31/23 19:44 23:47 06:17 Sodium 134 L 133 L 134 L Potassium 4.4 4.0 3.6 Chloride 108 H 106 107 Carbon Dioxide 14 L 16 L 14 L BUN 17 15 12 Creatinine 0.83 0.82 0.71 Glucose 139 H 183 H 321 H* Calcium 8.4 L 8.1 L 7.8 L 07/31/23 07/31/23 10:29 15:07 Sodium 135 L 135 L Potassium 3.6 3.6 Chloride 107 106 Carbon Dioxide 16 L 17 L BUN 11 10 Creatinine 0.73 0.70 Glucose 173 H 171 H Calcium 8.0 L 8.0 L
[2023-07-31] MEDS: LACTATED RINGER'S 1,000 ML IV SCH (18:23)
[2023-07-31 22:21] LABS: Calcium 7.7 mg/dl (8.6-10.3); Potassium 3.4 mmol/L (3.5-5.1)
[2023-07-31 22:27] LABS: BUN Creatinine Ratio 15.3 (10-20); Creatinine Clr Calc Pharmacy 172.2 ml/min; Est GFR (Non-African American) 115.6 ml/min
[2023-08-01] MEDS: INSULIN ASPART PER UNIT CHARGE SC SCH ×5 (04:55→20:30)
[2023-08-01 06:33] LABS: Hematocrit (blood only) 37.7 % (42.0-52.0); Hemoglobin 12.8 g/dl (14.0-18.0); Mean Corpuscular Hemoglobin 29.9 pg (25.0-34.0); Mean Corpuscular Volume 88.1 fL (80.0-100.0); Mean Platelet Volume 9.2 fL (9.4-12.4); Platelet Count 125 K/uL (130-400); RDW Coefficient of Variation 14.1 % (11.5-14.5); RDW Standard Deviation 45.3 fL (36.4-46.3); Red Blood Count 4.28 M/uL (4.70-6.10); White Blood Count 5.51 K/ul (4.8-10.8)
[2023-08-01 06:53] LABS: BUN Creatinine Ratio 14.5 (10-20); Calcium 7.9 mg/dl (8.6-10.3); Creatinine Clr Calc Pharmacy 163.9 ml/min; Est GFR (African American) 131.3 ml/min; Est GFR (Non-African American) 113.3 ml/min; Magnesium 1.6 mg/dl (1.7-2.4); Phosphorus 2.4 mg/dl (2.5-4.9); Potassium 4.1 mmol/L (3.5-5.1)
[2023-08-01] MEDS: LACTATED RINGER'S 1,000 ML IV SCH (07:13)
[2023-08-01] MEDS ORDERED: LANTUS PER UNIT CHARGE SC SCH (09:00)
[2023-08-01] MEDS: ATORVASTATIN 40 MG TAB PO SCH (09:35)
[2023-08-01] MEDS: PANTOprazole 40 MG TAB PO SCH ×2 (09:35→20:24)
[2023-08-01] MEDS: POT PHOSPHATE MONOBASIC W/ SOD TAB PO SCH ×4 (09:36→20:24)
[2023-08-01] MEDS: METOPROLOL TARTRATE 50 MG TAB PO SCH ×2 (09:36→20:24)
[2023-08-01] MEDS: GABAPENTIN 300 MG CAP PO SCH ×3 (09:36→20:23)
[2023-08-01] MEDS: ASPIRIN 81 MG ECTAB PO SCH (09:36)
[2023-08-01] MEDS: ENOXAPARIN INJ 40 MG/0.4 ML SYR SQ SCH (09:36)
[2023-08-01] MEDS: MAGNESIUM SULFATE / D5W 1 GM/100 ML BAG IV SCH ×2 (09:36→11:52)
--- NOTE | 2023-08-01 12:20 | Pharmacy Report ---
Pharmacy Glycemic Short Note 2 - Date of Service August 01, 2023 - Glycemic Short BSG Results (Last 24 hours): 07/31/23 07/31/23 07/31/23 12:59 14:17 15:07 Glucose 171 H POC Glucose 183 H 164 H 07/31/23 07/31/23 07/31/23 20:02 21:47 23:21 Glucose 135 H POC Glucose 173 H 114 H 08/01/23 08/01/23 08/01/23 04:28 06:04 07:51 Glucose 129 H POC Glucose 116 H 124 H 08/01/23 11:50 Glucose POC Glucose 182 H OUTPATIENT ANTIDIABETIC REGIMEN: * Basaglar 30 units SC qAM * Metformin 1000 mg PO BID * Jardiance 25 mg PO daily HbA1c ordered/pending for 07/31/23 ASSESSMENT: 08/01: * Patient transitioned off insulin drip last evening - received Lantus 30 units yesterday * Fasting BSG 129 mg/dL, reasonable to continue same basal dose for this AM. May need to scale back if PO intake not adequate * No change to CF/CR 07/31: * Patient continues on insulin drip running at a low rate of 1 ml/hr. Anion gap of 11 last night but this AM it was elevated at 13. Bicarb low at 14. * Plan to transition off the insulin drip this afternoon after new set of labs ordered for 2 pm results. * Patient was given 30 units of basal insulin this morning to try to transition off the insulin drip. * IV fluids running at 125 ml/hr. He is currently still NPO. * Spoke with hospitalist, plan on getting labs this afternoon to decide on when to transition off of the drip. 07/30/23: * BS is a 53 year old male with T2DM who presented to ED with persistent N&V w/ abdominal pain and development of shortness of breath * Found to be in DKA w/ serum bicarbonate of 4 mmol/L, anion gap of 30, and venous blood gas pH of 7.01 * Insulin infusion and IV fluids initiated, currently receiving D5W/LR @125 mL/hr * DKA improving, but anion gap still elevated (15) and serum bicarbonate still low at 10 mmol/L on last set of labs PLAN FOR INPATIENT GLYCEMIC CONTROL: * Hold outpatient oral diabetes medications * Lantus 30 units daily * Novolog ACHS - 110-140 / CF 25 / CR 8
--- NOTE | 2023-08-01 17:22 | Hospitalist Progress Note ---
Date of Service August 01, 2023 Assessment & Plan (1) DKA (diabetic ketoacidosis): (2) Nausea & vomiting: (3) Coronavirus infection: (4) Esophagitis: Plan Mr. Sebastian is a 53 year old gentleman with past medical history notable for DMII with neuropathy, HLD, HTN admitted with euglycemic DKA in the setting of a coronavirus infection and poor dietary compliance. #DKA *resolved #Intractable N/V due to above #HAGMA #Uncontrolled DM II HbA1c 9.6 Lactic acid normalized with IV fluids Blood cultures: Negative to date Continue Insulin drip>> transition to SQ insulin per protocol Continue IV fluids Repeat electrolytes as needed Appreciate glycemic pharmacist help Home p.o. meds for diabetes on hold staff development educator consulted #Coronavirus Infection Biofire positive for coronavirus infection Chest X ray:No acute cardiopulmonary findings. Conservative management Saturating well on room air #Esophagitis Intermittently uses omeprazole at home Started on Protonix Advised to follow-up with GI as outpatient #Other chronic conditions Hyperlipidemia Hypertension Hold lisinopril due to low BP Continue statin DVT Px: Lovenox SQ CODE STATUS: Full code Admission and Anticipated Discharge Date Admission Date: July 30, 2023 Subjective Reports feeling much improved today overall, tolerating diet Review of Systems Review of Systems: All systems reviewed & are unremarkable except as noted in Subjective Physical Exam Constitutional: WD/WN, vitals as above Respiratory: normal respiratory effort, lungs clear to auscultation Cardiovascular: RRR, no murmur, no edema Gastrointestinal (Abdomen): normal bowel sounds, soft, nontender, no hepatosplenomegaly Musculoskeletal: no cyanosis or clubbing, extremities motor strength 5/5 Results & Data Results & Data Vital Signs (Past 12 Hours) Vital Signs Temp Pulse Pulse Resp BP Pulse Ox O2 Del Method 08/01/23 15:28 36.7 C 87 18 124/69 98 Room Air 08/01/23 10:45 36.5 C 63 19 115/71 100 Room Air 08/01/23 08:00 64 Laboratory Results Short CBC 08/01/23 Range/Units 06:04 WBC 5.51 (4.8-10.8) K/ul Hgb 12.8 L (14.0-18.0) g/dl Hct 37.7 L (42.0-52.0) % Plt Count 125 L (130-400) K/uL BMP 07/31/23 08/01/23 21:47 06:04 Sodium 135 L 138 Potassium 3.4 L 4.1 D Chloride 108 H 107 Carbon Dioxide 14 L 20 L BUN 9 9 Creatinine 0.59 L 0.62 Glucose 135 H 129 H Calcium 7.7 L 7.9 L Medications Administered Home Medications Medication Instructions Recorded Confirmed Last Taken aspirin 81 mg tablet,delayed 81 mg PO DAILY 10/28/18 07/30/23 Unknown release atorvastatin 40 mg tablet 40 mg PO [facility] 10/28/18 07/30/23 Unknown metoprolol tartrate 50 mg tablet 50 mg PO [facility]HS 10/28/18 07/30/23 Unknown empagliflozin 25 mg tablet 25 mg PO [facility] 07/30/23 07/30/23 Unknown (Jardiance) gabapentin 300 mg capsule 300 mg PO TID 07/30/23 07/30/23 Unknown insulin glargine 100 unit/mL (3 30 unit subcut [facility] 07/30/23 07/30/23 Unknown mL) subcutaneous pen (Rd [place] U-100 Insulin) lisinopril 20 mg tablet 20 mg PO [facility] 07/30/23 07/30/23 Unknown metformin 500 mg tablet,extended 1,000 mg PO [facility] 07/30/23 07/30/23 Unknown release 24 hr Active Medications Generic Name Dose Route Start Last Admin Trade Name Freq PRN Reason Stop Dose Admin Aspirin 81 mg 07/30/23 09:00 08/01/23 09:36 Aspirin 81 Mg Ectab PO 08/29/23 08:59 81 mg DAILY HENRY Administration Atorvastatin Calcium 40 mg 07/30/23 09:00 08/01/23 09:35 Atorvastatin 40 Mg Tab PO 08/29/23 08:59 40 mg QAM HENRY Administration Enoxaparin Sodium 40 mg 07/30/23 09:00 08/01/23 09:36 Enoxaparin Inj 40 Mg/0.4 Ml Syr SQ 08/29/23 08:59 40 mg Q24H HENRY Administration Gabapentin 300 mg 07/30/23 09:00 08/01/23 15:25 Gabapentin 300 Mg Cap PO 08/29/23 08:59 Not Given TID HENRY Lactated Ringer's 1,000 mls @ 80 mls/hr 07/31/23 17:30 08/01/23 07:13 Lr IV 08/30/23 17:29 80 mls/hr .[id number] HENRY Administration Insulin Aspart 0 units 07/31/23 17:30 08/01/23 12:46 Insulin Aspart Per Unit Charge SC 08/30/23 17:29 9 units ACHS HENRY Administration Insulin Glargine 30 units 08/01/23 09:00 08/01/23 09:36 Lantus Per Unit Charge SC 08/31/23 08:59 30 units DAILY HENRY Administration Lisinopril 20 mg 07/30/23 09:00 07/30/23 12:11 Lisinopril 20 Mg Tab PO 08/29/23 08:59 20 mg QAM HENRY Administration Metoprolol Tartrate 50 mg 07/30/23 09:00 08/01/23 09:36 Metoprolol Tartrate 50 Mg Tab PO 08/29/23 08:59 50 mg AMHS HENRY Administration Ondansetron HCl 4 mg 07/30/23 06:32 07/30/23 11:08 Ondansetron Inj 2 Mg/Ml 2 Ml Vial IV 08/29/23 06:31 4 mg Q6H PRN Administration Nausea And Vomiting Pantoprazole Sodium 40 mg 07/30/23 09:00 08/01/23 09:35 Pantoprazole 40 Mg Tab PO 08/29/23 08:59 40 mg BID HENRY Administration Potassium Phosphate 2 tab 08/01/23 09:00 08/01/23 12:48 Pot Phosphate Monobasic W/ Sod Tab PO 08/01/23 21:01 2 tab QID HENRY Administration
[2023-08-02 06:44] LABS: BUN Creatinine Ratio 11.9 (10-20); Calcium 7.7 mg/dl (8.6-10.3); Creatinine Clr Calc Pharmacy 151.5 ml/min; Est GFR (African American) 127.1 ml/min; Est GFR (Non-African American) 109.7 ml/min; Magnesium 1.7 mg/dl (1.7-2.4); Phosphorus 3.1 mg/dl (2.5-4.9); Potassium 3.3 mmol/L (3.5-5.1)
[2023-08-02] MEDS ORDERED: POTASSIUM CHLORIDE CRTAB 20 MEQ TABCR PO STA (07:34)
[2023-08-02] MEDS ORDERED: POTASSIUM CHLORIDE CRTAB 20 MEQ TABCR PO SCH (07:34)
[2023-08-02] MEDS ORDERED: LANTUS PER UNIT CHARGE SC SCH (09:00)
[2023-08-02 09:18] LABS: Codeine Urine NEGATIVE ng/mL (<50); Hydrocodone Urine NEGATIVE ng/mL (<50); Hydromor Urine NEGATIVE ng/mL (<50); Morphine Urine 420 ng/mL (<50); Norhydrocodone Conf Ur NEGATIVE ng/mL (<50); Noroxycodone Urine NEGATIVE ng/mL (<50); Oxycodone Urine NEGATIVE ng/mL (<50); Oxymorph Urine NEGATIVE ng/mL (<50)
[2023-08-02] MEDS: PANTOprazole 40 MG TAB PO SCH (10:32)
[2023-08-02] MEDS: ATORVASTATIN 40 MG TAB PO SCH (10:33)
[2023-08-02] MEDS: INSULIN ASPART PER UNIT CHARGE SC SCH ×2 (10:34→12:40)
[2023-08-02] MEDS: METOPROLOL TARTRATE 50 MG TAB PO SCH (10:34)
[2023-08-02] MEDS: ASPIRIN 81 MG ECTAB PO SCH (10:36)
[2023-08-02] MEDS: ENOXAPARIN INJ 40 MG/0.4 ML SYR SQ SCH (11:19)
[2023-08-02] MEDS: GABAPENTIN 300 MG CAP PO SCH (11:20)
--- NOTE | 2023-08-02 11:48 | Discharge Summary ---
Discharge Summary Date of Service August 02, 2023 Notes For Next Care Provider Medication Changes From Visit Insulin glargine 35 U Admission HPI Per Admitting Provider Pt is a 53yoM with PMHx significant for DMII with neuropathy, HLD, HTN admitted with euglycemic DKA in the setting of a coronavirus infection. Pt states that he has been having intractable N/V for the last few days, has not been able to keep anything down. Today symptoms progressed to not being able to breathe. Not currently requiring oxygen. States he has chronic diarrhea in setting of IBS. Also reports occasional dysuria but states that it is from use of Jardiance. Otherwise denies acute concerns. Started on IV fluids and insulin drip in the ED. Also received zofran. Admission Exam Per Admitting Provider General: Alert, oriented. No acute distress, sitting up in bed Skin: No noted rashes or bruises Psych: Appropriate mood and affect Neuro: No gross deficits HEENT: NC/AT CV: RRR Resp: Breath sounds clear bilaterally, no increased effort of breathing. Abdomen: Soft, nontender, nondistended Extremities: No edema in lower extremities bilaterally. Principal Dx & Hospital Course #1 = Principal Diagnosis (1) DKA (diabetic ketoacidosis): (2) Nausea & vomiting: (3) Coronavirus infection: (4) Esophagitis: Plan Mr. Sebastain is a 53 year old gentleman with past medical history notable for DMII with neuropathy, HLD, HTN admitted with euglycemic DKA in the setting of a coronavirus infection and poor dietary compliance. #DKA *resolved #Intractable N/V due to above #HAGMA #Uncontrolled DM II HbA1c 9.6 Lactic acid normalized with IV fluids Blood cultures: Negative to date Continue Insulin drip>> transition to SQ insulin per protocol Gap close successful and symptoms resolved Resumed home regimen with glargine 35 U Home PO meds -Given inciting factors of infection and endorsed "extreme diet over holidays" SGLT2 resumed with plan for close follow up with PCP to ensure labs remain stable and not the source of euglycemic ketoacidosis #Coronavirus Infection Biofire positive for coronavirus infection Chest X ray:No acute cardiopulmonary findings. Conservative management Saturating well on room air #Esophagitis Encouraged prn use to avoid chronic PPI until GI follow up Advised to follow-up with GI as outpatient #Other chronic conditions Hyperlipidemia Hypertension Reusme home medications Continue statin On day of discharge, patient was counseled about lifestyle modifications and verbalized understanding. Patient denies any acute concerns or issues and reports feeling well overall. Discharge Exam Constitutional WD/WN, vitals as above Respiratory normal respiratory effort, lungs clear to auscultation Cardiovascular RRR, no murmur, no edema Gastrointestinal (Abdomen) normal bowel sounds, soft, nontender, no hepatosplenomegaly Musculoskeletal no cyanosis or clubbing, extremities motor strength 5/5 Updated Medication List Medication Instructions Recorded Confirmed Type aspirin 81 mg tablet,delayed 81 mg PO DAILY 10/28/18 07/30/23 History release atorvastatin 40 mg tablet 40 mg PO QAM 10/28/18 07/30/23 History metoprolol tartrate 50 mg tablet 50 mg PO [facility] 10/28/18 07/30/23 History empagliflozin 25 mg tablet 25 mg PO QAM 07/30/23 07/30/23 History (Jardiance) gabapentin 300 mg capsule 300 mg PO TID 07/30/23 07/30/23 History lisinopril 20 mg tablet 20 mg PO QAM 07/30/23 07/30/23 History metformin 500 mg tablet,extended 1,000 mg PO [facility] 07/30/23 07/30/23 History release 24 hr insulin glargine 100 unit/mL (3 35 unit (0.35 mL) subcut QAM #15 mL 08/02/23 07/30/23 Rx mL) subcutaneous pen (Basaglar KwikPen U-100 Insulin) Hospital Stay Data Consultations 07/30/23 03:12 ED Decision to Admit Stat Diagnostic Imagining Performed 07/30/23 01:00 CT Abd and Pelvis [CT abd pelvis IV con only] Stat CT angio chest PE protocol Stat Pending Results Patient Have Any Pending Studies at Discharge: No Discharge Instructions Given to Patient (Per Discharging Provider) You were admitted for Diabetic Ketoacidosis given coronavirus infectious and dietary noncompliance. You were managed with an insulin drip and eventually transitioned back to your home insulin regimen. Please resume all your home medications. Lifestyle modification is important. Attached are some educational pamphlets on Diabetes management. Your A1C this admission was 92%, your goal is <7.0% Please arrange with your PCP Dr Solis for labs in 1 weeks time post hospitalization. Total Time Total Time Spent Total Time Spent (In Minutes): 55
== END 2023-08-02 12:59 | disposition home or self-care (01) | DRG 639 ==
LOC: ED 00:47 → SUATTDRO 03:30 → EDINP 03:30 → 4W 06:32